=== PATIENT | female | born 1980 | race Two or more races ===

== ENCOUNTER 2020-11-26 14:05 | Inpatient (IN) | payer OTHER ==
[~2020-11-26] VITALS: Ht 160 cm; Wt 80.9 kg
[2020-11-26] MEDS ORDERED: PIPERACILLIN-TAZOB 3.375GM 100 ML IV ONE (15:15)
[2020-11-26] MEDS ORDERED: VANCOMYCIN 1GM/250ML 250 ML IV ONE (15:15)
[2020-11-26] MEDS ORDERED: MORPHINE SULFATE INJECTION 2 MG/ML SYRG IV ONE (15:15)
[2020-11-26] MEDS ORDERED: SODIUM CHLORIDE 0.9% 1,000 ML IV ONE (15:15)
[2020-11-26] MEDS ORDERED: ONDANSETRON HCL 4 MG/2 ML VIAL IV ONE (15:15)
[2020-11-26 15:39] LABS: Basophils # (auto) 0.1 10 ^3/uL (0-0.2); Basophils % (auto) 0.4 % (0.0-2.0); Eosinophils # (auto) 0 10 ^3/uL (0-0.8); Eosinophils % (auto) 0.2 % (0.0-7.0); Hematocrit 28.4 % (36.0-46.0); Hemoglobin 9.2 g/dL (12.2-16.2); Lymphocytes # (auto) 1.4 10 ^3/uL (0.4-5.4); Lymphocytes % (auto) 8.8 % (10.0-50.0); Mean Corpuscular Hemoglobin 30.3 pg (28.0-32.0); Mean Corpuscular Hgb Conc. 32.5 g/dL (32.0-36.0); Monocytes # (auto) 1.6 10 ^3/uL (0-1.3); Monocytes % (auto) 9.7 % (0.0-12.0); Neutrophils # (auto) 13.1 10 ^3/uL (1.6-8.6); Neutrophils % (auto) 80.9 % (37.0-80.0); Red Blood Cells 3.06 10^6/uL (4.0-5.20); Red Cell Distribution Width 14.2 % (11.8-14.3); White Blood Cell 16.2 10^3/uL (4.4-10.8)
[2020-11-26 15:57] LABS: Albumin 3.1 g/dL (3.4-5.0); BUN/Creatinine Ratio 12.5; Calcium 8.5 mg/dL (8.5-10.1); Potassium 5.5 mmol/L (3.5-5.1)
[2020-11-26 16:00] LABS: Bilirubin, Total 0.6 mg/dL (0.2-1.0); Lactic Acid w/Reflex 2.2 mmol/L (0.4-2.0); Total Protein 8.1 g/dL (6.4-8.2)
[2020-11-26 16:27] LABS: Urine Bacteria FEW /hpf (None Seen); Urine Blood Negative /uL (Negative); Urine Specific Gravity 1.009 (1.001-1.035); Urine WBC 3 /hpf (0 - 5)
[2020-11-26 16:43] LABS: Amphetamine Screen, Urine POSITIVE (NEGATIVE); Barbiturate Scree,Urine NEGATIVE (NEGATIVE); Benzodiazephine Screen, Urine NEGATIVE (NEGATIVE); Cannabinoid Screen, Urine NEGATIVE (NEGATIVE); Cocaine Screen, Urine NEGATIVE (NEGATIVE); Opiate Scree,Urine NEGATIVE (NEGATIVE); Phencyclidine Screen, Urine NEGATIVE (NEGATIVE)
[2020-11-26 16:49] LABS: Alcohol, Urine < 3.0 mg/dL (0-10)
[2020-11-26] MEDS ORDERED: ACETAMINOPHEN 500 MG TAB PO PRN (18:15)
[2020-11-26] MEDS ORDERED: SODIUM ZIRCONIUM CYCL 10 GM PAK PO ONE (18:15)
[2020-11-26] MEDS ORDERED: ALPRAZolam 0.25 MG TAB PO PRN (18:15)
[2020-11-26] MEDS ORDERED: ALBUTEROL SULF 2.5 MG/0.5ML(0.5%) NEB SOLN NEB ONE (18:15)
[2020-11-26] MEDS ORDERED: MORPHINE SULFATE INJECTION 2 MG/ML SYRG IV PRN (18:15)
[2020-11-26] MEDS ORDERED: InsuLIN REG 1unit/0.01ml Soln (100units/ml) IV ONE (18:15)
[2020-11-26] MEDS ORDERED: NITROGLYCERIN 0.4 MG SL TAB SL PRN (18:15)
[2020-11-26] MEDS ORDERED: DEXTROSE (50%) 50ML SYRG IV ONE (18:15)
[2020-11-26] MEDS ORDERED: ALBUTEROL SULF 2.5 MG/0.5ML(0.5%) NEB SOLN ONE (18:49)
[2020-11-26] MEDS: cefTRIAXone 1GM/50ML D5W 50 ML IV SCH ×2 (18:54→20:39)
[2020-11-26] MEDS: MORPHINE SULFATE INJECTION 2 MG/ML SYRG IV PRN (20:09)
[2020-11-26] MEDS: SODIUM BICARBONATE 50ML VIAL 50 ML in SOD CHL 0.45% 1,000 ML IV SCH (21:00)
[2020-11-26] MEDS: CLINDAMYCIN 300MG IV 50 ML IV SCH (22:17)
[2020-11-26] MEDS: HYDROcodone-ACET 5/325MG TAB PO PRN (22:33)
[2020-11-26] MEDS: diphenhdrAMINE HCL 50 MG/1 ML VL IV PRN (23:33)
[2020-11-26] MEDS: ONDANSETRON HCL 4 MG/2 ML VIAL IV PRN (23:56)
[2020-11-27] VITALS (14 sets, daily range): BP systolic 89–121; BP diastolic 38–86
[2020-11-27] MEDS: SODIUM BICARBONATE 50ML VIAL 50 ML in SOD CHL 0.45% 1,000 ML IV SCH ×3 (03:05→20:00)
[2020-11-27 05:16] LABS: Eosinophils # (auto) 0 10 ^3/uL (0-0.8); Eosinophils % (auto) 0.3 % (0.0-7.0); Lymphocytes # (auto) 1.7 10 ^3/uL (0.4-5.4); Monocytes # (auto) 1.2 10 ^3/uL (0-1.3); Red Cell Distribution Width 13.9 % (11.8-14.3)
[2020-11-27 05:19] LABS: Basophils # (auto) 0.1 10 ^3/uL (0-0.2); Basophils % (auto) 0.5 % (0.0-2.0); Hematocrit 20.9 % (36.0-46.0); Lymphocytes % (auto) 12.7 % (10.0-50.0); Mean Corpuscular Hemoglobin 30.3 pg (28.0-32.0); Mean Corpuscular Hgb Conc. 32.8 g/dL (32.0-36.0); Mean Corpuscular Volume 92.4 fL (80.0-100.0); Neutrophils # (auto) 10.2 10 ^3/uL (1.6-8.6); Neutrophils % (auto) 77.5 % (37.0-80.0); Red Blood Cells 2.26 10^6/uL (4.0-5.20); White Blood Cell 13.1 10^3/uL (4.4-10.8)
[2020-11-27 05:24] LABS: Hemoglobin 6.9 g/dL (12.2-16.2)
[2020-11-27 05:38] LABS: INR 1.29 (0.9-1.15); Partial Thromboplastin Time 51.3 sec (23.6-33.0)
[2020-11-27 05:59] LABS: Potassium 3.9 mmol/L (3.5-5.1)
[2020-11-27 06:15] LABS: Albumin 2.3 g/dL (3.4-5.0); Bilirubin, Total 0.3 mg/dL (0.2-1.0); Calcium 7.3 mg/dL (8.5-10.1); Total Protein 6.2 g/dL (6.4-8.2)
[2020-11-27] MEDS: CLINDAMYCIN 300MG IV 50 ML IV SCH ×3 (06:39→22:16)
[2020-11-27] MEDS: cefTRIAXone 1GM/50ML D5W 50 ML IV SCH (09:47)
[2020-11-27] MEDS: HYDROcodone-ACET 5/325MG TAB PO PRN ×2 (09:48→19:52)
[2020-11-27] MEDS: ONDANSETRON HCL 4 MG/2 ML VIAL IV PRN (11:50)
[2020-11-28 05:00] VITALS: BP 110/65
[2020-11-28] MEDS: CLINDAMYCIN 300MG IV 50 ML IV SCH ×3 (05:41→22:04)
[2020-11-28] MEDS: SODIUM BICARBONATE 50ML VIAL 50 ML in SOD CHL 0.45% 1,000 ML IV SCH ×3 (05:42→20:39)
[2020-11-28] MEDS: HYDROcodone-ACET 5/325MG TAB PO PRN (05:56)
[2020-11-28 09:00] VITALS: BP 107/78
[2020-11-28] MEDS: cefTRIAXone 1GM/50ML D5W 50 ML IV SCH (09:10)
[2020-11-28 10:46] LABS: BUN/Creatinine Ratio 14.2; Calcium 7.7 mg/dL (8.5-10.1)
[2020-11-28] MEDS: InsuLIN REG 1unit/0.01ml Soln (100units/ml) SC SCH ×3 (11:30→22:00)
[2020-11-28] MEDS ORDERED: DEXTROSE (50%) 50ML SYRG IV PRN (11:30)
[2020-11-28] MEDS: ONDANSETRON HCL 4 MG/2 ML VIAL IV PRN (11:52)
[2020-11-28] MEDS: ACCU-CHEK COMFORT CURVE STRIP VI SCH ×3 (12:27→22:15)
[2020-11-28 13:00] VITALS: BP 147/94
[2020-11-28 17:24] VITALS: BP 146/82
[2020-11-28 22:00] VITALS: BP 90/25
[2020-11-29 05:00] VITALS: BP 120/83
[2020-11-29 06:09] LABS: Basophils # (auto) 0 10 ^3/uL (0-0.2); Basophils % (auto) 0.5 % (0.0-2.0); Eosinophils # (auto) 0.1 10 ^3/uL (0-0.8); Hematocrit 29.1 % (36.0-46.0); Hemoglobin 10.1 g/dL (12.2-16.2); Lymphocytes % (auto) 33.3 % (10.0-50.0); Mean Corpuscular Hemoglobin 31.3 pg (28.0-32.0); Mean Corpuscular Hgb Conc. 34.5 g/dL (32.0-36.0); Mean Corpuscular Volume 90.7 fL (80.0-100.0); Monocytes # (auto) 0.4 10 ^3/uL (0-1.3); Monocytes % (auto) 6.8 % (0.0-12.0); Neutrophils # (auto) 3.5 10 ^3/uL (1.6-8.6); Neutrophils % (auto) 57.4 % (37.0-80.0); Red Blood Cells 3.21 10^6/uL (4.0-5.20); Red Cell Distribution Width 13.8 % (11.8-14.3); White Blood Cell 6.1 10^3/uL (4.4-10.8)
[2020-11-29 06:27] LABS: BUN/Creatinine Ratio 14.2; Calcium 7.2 mg/dL (8.5-10.1); Phosphorus 3.6 mg/dL (2.5-4.90); Potassium 3.9 mmol/L (3.5-5.1)
[2020-11-29] MEDS: SODIUM BICARBONATE 50ML VIAL 50 ML in SOD CHL 0.45% 1,000 ML IV SCH ×2 (06:28→13:06)
[2020-11-29] MEDS: CLINDAMYCIN 300MG IV 50 ML IV SCH ×3 (06:28→22:46)
[2020-11-29 06:41] LABS: % Iron Saturation 51.7 % (15-50)
[2020-11-29] MEDS: InsuLIN REG 1unit/0.01ml Soln (100units/ml) SC SCH ×4 (06:48→22:00)
[2020-11-29] MEDS: ACCU-CHEK COMFORT CURVE STRIP VI SCH ×4 (06:49→22:46)
[2020-11-29 09:00] VITALS: BP 128/80
[2020-11-29] MEDS: cefTRIAXone 1GM/50ML D5W 50 ML IV SCH (09:21)
[2020-11-29] MEDS: ONDANSETRON HCL 4 MG/2 ML VIAL IV PRN (09:48)
[2020-11-29] MEDS: MORPHINE SULFATE INJECTION 2 MG/ML SYRG IV PRN (09:49)
[2020-11-29 11:37] LABS: Cholesterol 148 mg/dL (< 200); HDL Cholesterol 32 mg/dL (40-59); LDL Cholesterol 92 mg/dL (< 100); Triglycerides 132 mg/dL (< 150)
[2020-11-29 13:00] VITALS: BP 151/97
[2020-11-29 17:00] VITALS: BP 141/91
[2020-11-29 22:00] VITALS: BP 158/86
[2020-11-29] MEDS: ACETYLCYSTEINE ORAL for CIN 20%(200MG/ML) 4ML PO SCH (22:45)
[2020-11-29] MEDS: ATORVASTATIN 20 MG TAB PO SCH (22:46)
[2020-11-30 05:00] VITALS: BP 130/87
[2020-11-30 05:56] LABS: Basophils # (auto) 0.1 10 ^3/uL (0-0.2); Basophils % (auto) 0.8 % (0.0-2.0); Eosinophils # (auto) 0.1 10 ^3/uL (0-0.8); Eosinophils % (auto) 1.6 % (0.0-7.0); Hematocrit 29.4 % (36.0-46.0); Hemoglobin 9.9 g/dL (12.2-16.2); Lymphocytes # (auto) 2.5 10 ^3/uL (0.4-5.4); Lymphocytes % (auto) 33.8 % (10.0-50.0); Mean Corpuscular Hemoglobin 30.9 pg (28.0-32.0); Mean Corpuscular Hgb Conc. 33.8 g/dL (32.0-36.0); Mean Corpuscular Volume 91.5 fL (80.0-100.0); Monocytes # (auto) 0.4 10 ^3/uL (0-1.3); Neutrophils # (auto) 4.3 10 ^3/uL (1.6-8.6); Neutrophils % (auto) 57.8 % (37.0-80.0); Nucleated Red Blood Cells % 0.1 %; Red Blood Cells 3.22 10^6/uL (4.0-5.20); Red Cell Distribution Width 13.8 % (11.8-14.3); White Blood Cell 7.4 10^3/uL (4.4-10.8)
[2020-11-30] MEDS: CLINDAMYCIN 300MG IV 50 ML IV SCH ×3 (06:01→22:08)
[2020-11-30 06:04] LABS: INR 1.05 (0.9-1.15)
[2020-11-30 06:17] LABS: Calcium 7.8 mg/dL (8.5-10.1); Potassium 4.1 mmol/L (3.5-5.1)
[2020-11-30] MEDS: ACCU-CHEK COMFORT CURVE STRIP VI SCH ×4 (06:37→23:42)
[2020-11-30] MEDS: InsuLIN REG 1unit/0.01ml Soln (100units/ml) SC SCH ×4 (06:38→22:00)
[2020-11-30 09:00] VITALS: BP 132/96
[2020-11-30] MEDS: ACETYLCYSTEINE ORAL for CIN 20%(200MG/ML) 4ML PO SCH ×2 (10:00→22:08)
[2020-11-30] MEDS: cefTRIAXone 1GM/50ML D5W 50 ML IV SCH (10:10)
[2020-11-30] MEDS: SODIUM BICARBONATE 50ML VIAL 50 ML in SOD CHL 0.45% 1,000 ML IV SCH (10:14)
[2020-11-30] MEDS ORDERED: LORazepam 2MG/ML-1ML VIAL IV ONE (11:30)
[2020-11-30 13:00] VITALS: BP 135/92
[2020-11-30] MEDS ORDERED: IODIXANOL 320MG/ML 100ML BTL IV ONE (14:57)
[2020-11-30] MEDS ORDERED: LIDOCAINE 2%HCL (LOCAL ANESTH.) INJ 20ML MDV ONE (14:57)
[2020-11-30] MEDS ORDERED: ANGIOMAX 250 MG VIAL IV ONE (15:15)
[2020-11-30] MEDS ORDERED: fentaNYL CITRATE 100 MCG/2 ML VL ONE (15:16)
[2020-11-30] MEDS ORDERED: MIDAZOLAM HCL 2MG/2ML 2ml VIAL (1mg/ml) ONE (15:16)
[2020-11-30] MEDS ORDERED: SODIUM CHL 0.9% 0 ML ONE (15:16)
[2020-11-30] MEDS: MORPHINE SULFATE INJECTION 2 MG/ML SYRG IV PRN (20:16)
[2020-11-30 21:30] VITALS: BP 125/88
[2020-11-30] MEDS: ATORVASTATIN 20 MG TAB PO SCH (22:08)
[2020-11-30] MEDS: SODIUM CHLOR 0.9% PF (SALINE LOCK) 10ML VIAL/SYR IV SCH (22:10)
[2020-12-01 05:00] VITALS: BP 114/84
[2020-12-01 05:30] LABS: Basophils # (auto) 0.1 10 ^3/uL (0-0.2); Basophils % (auto) 0.8 % (0.0-2.0); Eosinophils # (auto) 0.1 10 ^3/uL (0-0.8); Eosinophils % (auto) 1.9 % (0.0-7.0); Hematocrit 30.7 % (36.0-46.0); Hemoglobin 10.1 g/dL (12.2-16.2); Lymphocytes # (auto) 2.7 10 ^3/uL (0.4-5.4); Lymphocytes % (auto) 39.3 % (10.0-50.0); Mean Corpuscular Hemoglobin 30.4 pg (28.0-32.0); Mean Corpuscular Hgb Conc. 32.9 g/dL (32.0-36.0); Mean Corpuscular Volume 92.3 fL (80.0-100.0); Monocytes # (auto) 0.5 10 ^3/uL (0-1.3); Monocytes % (auto) 7.8 % (0.0-12.0); Neutrophils # (auto) 3.4 10 ^3/uL (1.6-8.6); Neutrophils % (auto) 50.2 % (37.0-80.0); Red Blood Cells 3.33 10^6/uL (4.0-5.20); Red Cell Distribution Width 13.6 % (11.8-14.3); White Blood Cell 6.8 10^3/uL (4.4-10.8)
[2020-12-01] MEDS: CLINDAMYCIN 300MG IV 50 ML IV SCH ×3 (05:40→22:01)
[2020-12-01] MEDS: SODIUM CHLOR 0.9% PF (SALINE LOCK) 10ML VIAL/SYR IV SCH ×3 (05:41→22:01)
[2020-12-01 05:55] LABS: Calcium 7.8 mg/dL (8.5-10.1); Potassium 4.3 mmol/L (3.5-5.1)
[2020-12-01 05:58] LABS: BUN/Creatinine Ratio 12.8
[2020-12-01] MEDS: ACCU-CHEK COMFORT CURVE STRIP VI SCH ×4 (06:34→22:09)
[2020-12-01] MEDS: InsuLIN REG 1unit/0.01ml Soln (100units/ml) SC SCH ×4 (06:35→22:00)
[2020-12-01 08:00] VITALS: BP 110/79
[2020-12-01] MEDS: cefTRIAXone 1GM/50ML D5W 50 ML IV SCH (09:06)
[2020-12-01] MEDS: ACETYLCYSTEINE ORAL for CIN 20%(200MG/ML) 4ML PO SCH (09:47)
[2020-12-01] MEDS: LACTATED RINGER'S 1,000 ML IV SCH ×2 (09:48→22:01)
[2020-12-01] MEDS ORDERED: ROPIVACAINE 0.5% (5MG/ML) 20ML AMPULE IJ ONE (10:40)
[2020-12-01] MEDS ORDERED: ceFAZolin 1GM VL ONE (10:41)
[2020-12-01] MEDS ORDERED: ceFAZolin 1GM/50ML 100 ML IV ONE (10:56)
[2020-12-01] MEDS ORDERED: ONDANSETRON HCL 4 MG/2 ML VIAL ONE (10:58)
[2020-12-01] MEDS ORDERED: PROPOFOL 10 MG/ML 20 ML IV ONE (10:58)
[2020-12-01] MEDS ORDERED: LIDOCAINE 2% (LOCAL ANESTH.) PF 5ml SDV ONE (10:58)
[2020-12-01] MEDS ORDERED: MIDAZOLAM HCL 2MG/2ML 2ml VIAL (1mg/ml) ONE (10:58)
[2020-12-01] MEDS ORDERED: GLYCOPYRROLATE 0.2 MG/ML 1ML VIAL ONE (10:58)
[2020-12-01] MEDS ORDERED: KETAMINE HCL 10 ML ONE (10:58)
[2020-12-01] MEDS ORDERED: HYDROmorphone HCL 2 MG/ML VL IV PRN (12:00)
[2020-12-01] MEDS ORDERED: ACCU-CHEK COMFORT CURVE STRIP VI ONE (12:00)
[2020-12-01] MEDS ORDERED: ONDANSETRON HCL 4 MG/2 ML VIAL IV PRN ×2 (12:00→15:00)
[2020-12-01] MEDS ORDERED: LABETALOL HCL 5 MG/ML 4ML SYRINGE IV PRN ×2 (15:00)
[2020-12-01 16:00] VITALS: BP 125/87
[2020-12-01] MEDS ORDERED: FERR-20 PO (18:38)
[2020-12-01] MEDS ORDERED: HYDR-4296 PO (18:38)
[2020-12-01 22:00] VITALS: BP 143/95
[2020-12-01] MEDS: ATORVASTATIN 20 MG TAB PO SCH (22:02)
[2020-12-02 04:58] VITALS: BP 127/82
[2020-12-02] MEDS: CLINDAMYCIN 300MG IV 50 ML IV SCH ×3 (06:03→22:05)
[2020-12-02] MEDS: SODIUM CHLOR 0.9% PF (SALINE LOCK) 10ML VIAL/SYR IV SCH ×3 (06:03→22:05)
[2020-12-02] MEDS: InsuLIN REG 1unit/0.01ml Soln (100units/ml) SC SCH ×4 (06:22→22:00)
[2020-12-02] MEDS: ACCU-CHEK COMFORT CURVE STRIP VI SCH ×4 (06:22→22:08)
[2020-12-02 06:30] LABS: BUN/Creatinine Ratio 12.4; Calcium 7.9 mg/dL (8.5-10.1); Potassium 4.3 mmol/L (3.5-5.1)
[2020-12-02 08:57] VITALS: BP 142/96
[2020-12-02] MEDS: cefTRIAXone 1GM/50ML D5W 50 ML IV SCH (09:08)
[2020-12-02] MEDS: LACTATED RINGER'S 1,000 ML IV SCH ×2 (11:47→23:49)
[2020-12-02 13:00] VITALS: BP 165/90
[2020-12-02] MEDS: MORPHINE SULFATE INJECTION 2 MG/ML SYRG IV PRN (14:18)
[2020-12-02 16:47] VITALS: BP 130/86
[2020-12-02 22:00] VITALS: BP 117/74
[2020-12-02] MEDS: ATORVASTATIN 20 MG TAB PO SCH (22:07)
[2020-12-03] VITALS (7 sets, daily range): BP systolic 101–158; BP diastolic 60–91
[2020-12-03] MEDS: InsuLIN REG 1unit/0.01ml Soln (100units/ml) SC SCH ×4 (06:06→22:00)
[2020-12-03] MEDS: SODIUM CHLOR 0.9% PF (SALINE LOCK) 10ML VIAL/SYR IV SCH ×2 (06:06→14:00)
[2020-12-03] MEDS: CLINDAMYCIN 300MG IV 50 ML IV SCH (06:06)
[2020-12-03] MEDS: ACCU-CHEK COMFORT CURVE STRIP VI SCH ×3 (06:56→17:00)
[2020-12-03] MEDS ORDERED: LIDOCAINE 1% (LOCAL ANESTH.) PF 5ml SDV ID ONE (10:30)
[2020-12-03] MEDS: HYDROcodone-ACET 5/325MG TAB PO PRN (12:27)
[2020-12-03] MEDS ORDERED: amLODIPine BESYLATE 5 MG TAB PO ONE (12:45)
[2020-12-03] MEDS: ceFAZolin 1GM/50ML 50 ML IV SCH ×2 (14:47)
[2020-12-04] MEDS: diphenhdrAMINE HCL 50 MG/1 ML VL IV PRN ×3 (00:40→18:38)
[2020-12-04] MEDS: SODIUM CHLOR 0.9% PF (SALINE LOCK) 10ML VIAL/SYR IV SCH ×7 (00:42→21:14)
[2020-12-04] MEDS: ATORVASTATIN 20 MG TAB PO SCH ×2 (00:43→21:14)
[2020-12-04] MEDS: ACCU-CHEK COMFORT CURVE STRIP VI SCH ×5 (00:43→21:14)
[2020-12-04] MEDS: HYDROcodone-ACET 5/325MG TAB PO PRN (01:00)
[2020-12-04 05:00] VITALS: BP 113/75
[2020-12-04] MEDS: ceFAZolin 1GM/50ML 50 ML IV SCH ×3 (06:28→21:14)
[2020-12-04] MEDS: InsuLIN REG 1unit/0.01ml Soln (100units/ml) SC SCH ×4 (06:29→21:28)
[2020-12-04 08:00] VITALS: BP 126/88
[2020-12-04 09:00] VITALS: BP 126/88
[2020-12-04] MEDS: amLODIPine BESYLATE 5 MG TAB PO SCH (10:11)
[2020-12-04] MEDS: MORPHINE SULFATE INJECTION 2 MG/ML SYRG IV PRN ×2 (10:21→21:53)
[2020-12-04] MEDS ORDERED: NYSTATIN TOPICAL POWDER 15GM TOP ONE (10:30)
[2020-12-04 13:00] VITALS: BP 133/90
[2020-12-04 17:00] VITALS: BP 144/87
[2020-12-04] MEDS: NYSTATIN TOPICAL POWDER 15GM TOP SCH (21:14)
[2020-12-04 22:00] VITALS: BP 115/77
[2020-12-05 05:00] VITALS: BP 115/80
[2020-12-05] MEDS: ceFAZolin 1GM/50ML 50 ML IV SCH (05:18)
[2020-12-05] MEDS: SODIUM CHLOR 0.9% PF (SALINE LOCK) 10ML VIAL/SYR IV SCH ×3 (05:19→14:52)
[2020-12-05 06:03] LABS: Hematocrit 27.9 % (36.0-46.0); Hemoglobin 9.4 g/dL (12.2-16.2)
[2020-12-05 06:07] LABS: BUN/Creatinine Ratio 13.5; Calcium 7.8 mg/dL (8.5-10.1); Potassium 4.1 mmol/L (3.5-5.1)
[2020-12-05] MEDS: ACCU-CHEK COMFORT CURVE STRIP VI SCH ×2 (06:56→13:43)
[2020-12-05] MEDS: InsuLIN REG 1unit/0.01ml Soln (100units/ml) SC SCH ×2 (06:56→13:39)
[2020-12-05 08:30] VITALS: BP 109/77
[2020-12-05] MEDS: NYSTATIN TOPICAL POWDER 15GM TOP SCH (09:19)
[2020-12-05] MEDS: amLODIPine BESYLATE 5 MG TAB PO SCH (09:22)
[2020-12-05] MEDS ORDERED: AMLO-496 PO (09:43)
[2020-12-05] MEDS ORDERED: NYS15PW TOP (09:43)
[2020-12-05 12:30] VITALS: BP 141/94
[2020-12-05 14:27] VITALS: BP 127/88
[2020-12-06] MEDS ORDERED: CEFTRIAXONE SODIUM 2 GM in D5W 5% 50 ML IV SCH (10:00)
== END 2020-12-05 17:05 | disposition left against medical advice (07) | DRG 710 ==
LOC: EDBD 14:05 → ER 14:05 → EEVIPCON 14:05 → TELE 18:09 → EEVIPCON 18:09 → TELE-WESTW 23:50 → WEST WING 12-03 09:32
PROVIDERS: ADMIT Nurse Practitioner Acute Care; ATTEND Internal Medicine
PROC: 30233N1 Transfusion of Nonautologous Red Blood Cells into Peripheral Vein, Percutaneous Approach (ICD-10-PCS; 2020-11-27)
PROC: B41FYZZ Fluoroscopy of Right Lower Extremity Arteries using Other Contrast (ICD-10-PCS; 2020-11-30)
PROC: B41GYZZ Fluoroscopy of Left Lower Extremity Arteries using Other Contrast (ICD-10-PCS; 2020-11-30)
PROC: 0Q9L0ZZ Drainage of Right Tarsal, Open Approach (ICD-10-PCS; 2020-12-01)
PROC: 0QBL0ZZ Excision of Right Tarsal, Open Approach (ICD-10-PCS; principal; 2020-12-01 11:05)
PROC: 02HV33Z Insertion of Infusion Device into Superior Vena Cava, Percutaneous Approach (ICD-10-PCS; 2020-12-03)
PROC: B548ZZA Ultrasonography of Superior Vena Cava, Guidance (ICD-10-PCS; 2020-12-03)
DX: A41.9 Sepsis, unspecified organism (principal); N17.0 Acute kidney failure with tubular necrosis; M00.9 Pyogenic arthritis, unspecified; E44.0 Moderate protein-calorie malnutrition; M86.171 Other acute osteomyelitis, right ankle and foot; L02.415 Cutaneous abscess of right lower limb; D50.0 Iron deficiency anemia secondary to blood loss (chronic); E11.22 Type 2 diabetes mellitus with diabetic chronic kidney disease; L97.519 Non-pressure chronic ulcer of other part of right foot with unspecified severity; E11.621 Type 2 diabetes mellitus with foot ulcer; N18.4 Chronic kidney disease, stage 4 (severe); E87.5 Hyperkalemia; I12.9 Hypertensive chronic kidney disease with stage 1 through stage 4 chronic kidney disease, or unspecified chronic kidney disease; F15.10 Other stimulant abuse, uncomplicated; Z20.822 Contact with and (suspected) exposure to COVID-19; E11.622 Type 2 diabetes mellitus with other skin ulcer; E11.69 Type 2 diabetes mellitus with other specified complication; F41.9 Anxiety disorder, unspecified; L03.115 Cellulitis of right lower limb; L97.319 Non-pressure chronic ulcer of right ankle with unspecified severity; R65.20 Severe sepsis without septic shock; M19.079 Primary osteoarthritis, unspecified ankle and foot; M20.40 Other hammer toe(s) (acquired), unspecified foot; Z53.29 Procedure and treatment not carried out because of patient's decision for other reasons; Z91.19 Patient's noncompliance with other medical treatment and regimen; Z68.29 Body mass index [BMI] 29.0-29.9, adult
CPT/HCPCS: 36415; 36569; 71045; 73700; 73721; 75716; 76775; 80048; 80053; 80061; 80307; 81001; 82728; 82962; 83036; 83540; 83550; 83605; 84100; 84702; 85014; 85018; 85025; 85610; 85730; 86850; 86900; 86901; 86920; 87040; 87070; 87075; 87077; 87205; 87426; 93005; 93306; 93925; 94640; 96365; 96375; 99152; G0378; J0690; J0696; J1815; J2001; J2250; J2405; J2543; J2704; J3490; Q9967

== ENCOUNTER 2022-11-09 19:09 | Inpatient (IN) | payer OTHER ==
[~2022-11-09] VITALS: Ht 167.6 cm; Wt 68.8 kg
[~2022-11-09 19:09] MED LIST: AMLO1TAB23 PO; FERR325T24 PO; HYDR-4296 PO; NYS15PW TOP
[2022-11-09] MEDS ORDERED: VANCOMYCIN PER PHARMACY 0 MG IV SCH (19:45)
[2022-11-09] MEDS ORDERED: PIPERACILLIN-TAZOB 3.375GM 100 ML IV ONE (19:45)
[2022-11-09] MEDS ORDERED: HYDROmorphone HCL 2 MG/ML VL/or syr IM ONE (19:45)
[2022-11-09] MEDS ORDERED: VANCOMYCIN 1GM/250ML 250 ML IV ONE (20:00)
[2022-11-09 20:17] LABS: Basophils # (auto) 0.1 10 ^3/uL (0-0.2); Eosinophils % (auto) 0.3 % (0.0-7.0); Hemoglobin 9.7 g/dL (12.2-16.2); Monocytes # (auto) 1.1 10 ^3/uL (0-1.3); Red Cell Distribution Width 13.2 % (11.8-14.3)
[2022-11-09 20:18] LABS: Basophils % (auto) 0.7 % (0.0-2.0); Eosinophils # (auto) 0 10 ^3/uL (0-0.8); Hematocrit 30.6 % (36.0-46.0); Lymphocytes # (auto) 1.4 10 ^3/uL (0.4-5.4); Lymphocytes % (auto) 7.5 % (10.0-50.0); Mean Corpuscular Hemoglobin 27.8 pg (28.0-32.0); Mean Corpuscular Hgb Conc. 31.8 g/dL (32.0-36.0); Mean Corpuscular Volume 87.5 fL (80.0-100.0); Monocytes % (auto) 6.1 % (0.0-12.0); Neutrophils # (auto) 15.7 10 ^3/uL (1.6-8.6); Neutrophils % (auto) 85.4 % (37.0-80.0); Red Blood Cells 3.49 10^6/uL (4.0-5.20); White Blood Cell 18.3 10^3/uL (4.4-10.8)
[2022-11-09 20:28] LABS: Urine Bacteria NONE SEEN /hpf (None Seen); Urine Blood 2+ /uL (Negative); Urine Clarity HAZY (Clear); Urine Color Yellow (Yellow); Urine Mucus FEW (None Seen); Urine Protein, UAD 3+ (Negative); Urine Specific Gravity 1.018 (1.001-1.035); Urine Urobilinogen Normal (Negative); Urine WBC 85 /hpf (0 - 5)
[2022-11-09 20:35] LABS: Alkaline Phosphatase 144 U/L (46-116); Anion Gap 10 (5-15); Aspartate Aminotransferase < 8 U/L (13-40); BUN/Creatinine Ratio 10.9 (10.0-20.0); Blood Urea Nitrogen 29 mg/dL (9-23); Carbon Dioxide 19 mmol/L (20-30); Chloride 98 mmol/L (98-107); Glucose 306 mg/dL (74-106); Lipase 41 U/L (12-53); Potassium 4.3 mmol/L (3.5-5.1); Sodium 127 mmol/L (136-145)
[2022-11-09 20:36] LABS: Bilirubin, Total 0.3 mg/dL (0.2-1.0); Total Protein 8.7 g/dL (5.7-8.2)
[2022-11-09 20:41] LABS: Alanine Aminotransferase < 9 U/L (7-40)
[2022-11-09 21:12] LABS: CRP High Sensitivity 14.41 mg/dL (<1.0)
[2022-11-09] MEDS ORDERED: diphenhdrAMINE HCL 25 MG CAP PO ONE (23:30)
[2022-11-10] VITALS (7 sets, daily range): BP systolic 90–150; BP diastolic 59–101; PULSE 87–106; RESP 11–19; TEMP 98.6–100; O2SAT 97–99
[2022-11-10] MEDS ORDERED: INSULIN LISPRO (HUMAN) 100 UNITS/ML ML SC ONE (01:45)
[2022-11-10] MEDS ORDERED: SODIUM CHLORIDE 0.9% 1,000 ML IV ONE (01:45)
[2022-11-10] MEDS ORDERED: DOCUSATE SOD 100 MG CAP PO PRN (06:30)
[2022-11-10] MEDS ORDERED: ACETAMINOPHEN 325 MG TAB PO PRN (06:30)
[2022-11-10] MEDS ORDERED: DEXTROSE (50%) 50ML SYRG IV PRN (06:30)
[2022-11-10] MEDS: HYDROmorphone HCL 2 MG/ML VL/or syr IV PRN ×3 (07:07→22:40)
[2022-11-10] MEDS: ONDANSETRON HCL 4 MG/2 ML VIAL IV PRN ×3 (07:08→22:40)
[2022-11-10 07:15] LABS: Basophils # (auto) 0.1 10 ^3/uL (0-0.2); Basophils % (auto) 0.4 % (0.0-2.0); Eosinophils # (auto) 0 10 ^3/uL (0-0.8); Eosinophils % (auto) 0.1 % (0.0-7.0); Hematocrit 27.2 % (36.0-46.0); Hemoglobin 8.9 g/dL (12.2-16.2); Lymphocytes % (auto) 4.6 % (10.0-50.0); Mean Corpuscular Hemoglobin 28.5 pg (28.0-32.0); Mean Corpuscular Hgb Conc. 32.6 g/dL (32.0-36.0); Mean Corpuscular Volume 87.3 fL (80.0-100.0); Monocytes # (auto) 1.6 10 ^3/uL (0-1.3); Monocytes % (auto) 6.9 % (0.0-12.0); Neutrophils # (auto) 19.9 10 ^3/uL (1.6-8.6); Red Blood Cells 3.12 10^6/uL (4.0-5.20); Red Cell Distribution Width 13.1 % (11.8-14.3); White Blood Cell 22.6 10^3/uL (4.4-10.8)
[2022-11-10] MEDS: SODIUM CHLORIDE 0.9% 1,000 ML IV SCH (07:55)
[2022-11-10 08:36] LABS: Albumin 3.5 g/dL (3.2-4.8); Alkaline Phosphatase 117 U/L (46-116); Anion Gap 9 (5-15); Aspartate Aminotransferase < 8 U/L (13-40); BUN/Creatinine Ratio 11.8 (10.0-20.0); Bilirubin, Total 0.3 mg/dL (0.2-1.0); Blood Urea Nitrogen 37 mg/dL (9-23); Calcium 8.7 mg/dL (8.5-10.1); Carbon Dioxide 21 mmol/L (20-30); Chloride 100 mmol/L (98-107); Glucose 123 mg/dL (74-106); Potassium 4.1 mmol/L (3.5-5.1); Sodium 130 mmol/L (136-145); Total Protein 7.3 g/dL (5.7-8.2)
[2022-11-10 08:49] LABS: Alanine Aminotransferase < 9 U/L (7-40)
[2022-11-10 08:52] LABS: Creatinine, Urine 181.43 mg/dL (30.0-125.0)
[2022-11-10 08:55] LABS: Protein, Urine 516.3 mg/dL (0.0-11.9); Urine Protein/Creatinine Ratio 2.85
[2022-11-10] MEDS: InsuLIN REG 1unit/0.01ml Soln (100units/ml) SC SCH ×5 (09:27→23:47)
[2022-11-10] MEDS: ACCU-CHEK COMFORT CURVE STRIP VI SCH ×5 (09:27→23:44)
[2022-11-10] MEDS: PIPERACILLIN-TAZOB 3.375GM 100 ML IV SCH ×2 (10:12→22:38)
[2022-11-10] MEDS: ENOXAPARIN SOD 30 MG/0.3 ML SYRINGE SC SCH (10:13)
[2022-11-10] MEDS: INSULIN LANTUS (GLARGINE) 1 /0.01ml (100units/ml) SC SCH (23:46)
[2022-11-11 01:25] LABS: Urine Amorphous Crystal FEW /hpf (None Seen); Urine Bacteria MANY /hpf (None Seen); Urine Blood TRACE /uL (Negative); Urine Clarity HAZY (Clear); Urine Color Yellow (Yellow); Urine Mucus FEW (None Seen); Urine Protein, UAD 2+ (Negative); Urine Specific Gravity 1.016 (1.001-1.035); Urine Urobilinogen Normal (Negative); Urine WBC 35 /hpf (0 - 5); Urine pH 5.5 (5.0-8.0)
[2022-11-11] MEDS: SODIUM CHLORIDE 0.9% 1,000 ML IV SCH ×3 (02:36→18:00)
[2022-11-11] MEDS: InsuLIN REG 1unit/0.01ml Soln (100units/ml) SC SCH ×6 (03:31→23:20)
[2022-11-11] MEDS: ACCU-CHEK COMFORT CURVE STRIP VI SCH ×6 (03:31→23:20)
[2022-11-11 05:00] VITALS: BP 108/64; PULSE 87; RESP 17; TEMP 98.6; O2SAT 100
[2022-11-11 05:50] LABS: Basophils # (auto) 0.1 10 ^3/uL (0-0.2); Hemoglobin 8.5 g/dL (12.2-16.2); Red Cell Distribution Width 13.5 % (11.8-14.3)
[2022-11-11 05:53] LABS: Basophils % (auto) 0.3 % (0.0-2.0); Eosinophils # (auto) 0 10 ^3/uL (0-0.8); Eosinophils % (auto) 0.2 % (0.0-7.0); Hematocrit 26.1 % (36.0-46.0); Lymphocytes # (auto) 1.2 10 ^3/uL (0.4-5.4); Lymphocytes % (auto) 6.7 % (10.0-50.0); Mean Corpuscular Hemoglobin 28.3 pg (28.0-32.0); Mean Corpuscular Hgb Conc. 32.6 g/dL (32.0-36.0); Mean Corpuscular Volume 86.9 fL (80.0-100.0); Monocytes # (auto) 1.5 10 ^3/uL (0-1.3); Monocytes % (auto) 7.9 % (0.0-12.0); Neutrophils # (auto) 15.7 10 ^3/uL (1.6-8.6); Neutrophils % (auto) 84.9 % (37.0-80.0); White Blood Cell 18.6 10^3/uL (4.4-10.8)
[2022-11-11 06:45] LABS: Albumin 3.5 g/dL (3.2-4.8); Alkaline Phosphatase 131 U/L (46-116); Anion Gap 9 (5-15); Aspartate Aminotransferase < 8 U/L (13-40); BUN/Creatinine Ratio 8.6 (10.0-20.0); Bilirubin, Total 0.4 mg/dL (0.2-1.0); Blood Urea Nitrogen 37 mg/dL (9-23); Calcium 8.7 mg/dL (8.7-10.4); Carbon Dioxide 21 mmol/L (20-30); Chloride 103 mmol/L (98-107); Glucose 95 mg/dL (74-106); Magnesium 1.5 mg/dL (1.6-2.6); Potassium 4.3 mmol/L (3.5-5.1); Sodium 133 mmol/L (136-145); Total Protein 7.8 g/dL (5.7-8.2)
[2022-11-11 06:57] LABS: Alanine Aminotransferase < 9 U/L (7-40)
[2022-11-11] MEDS: ONDANSETRON HCL 4 MG/2 ML VIAL IV PRN ×2 (07:32→19:58)
[2022-11-11 08:00] VITALS: PULSE 70; RESP 18; O2SAT 94
[2022-11-11 08:57] LABS: Amphetamine Screen, Urine Neg (NEGATIVE)
[2022-11-11 08:58] LABS: Barbiturate Scree,Urine Neg (NEGATIVE); Benzodiazephine Screen, Urine Neg (NEGATIVE); Cannabinoid Screen, Urine Neg (NEGATIVE); Cocaine Screen, Urine Neg (NEGATIVE); Opiate Scree,Urine Neg (NEGATIVE); Phencyclidine Screen, Urine Neg (NEGATIVE)
[2022-11-11 09:00] VITALS: BP 100/82; PULSE 70; RESP 18; TEMP 99.3; O2SAT 94
[2022-11-11] MEDS: HYDROmorphone HCL 2 MG/ML VL/or syr IV PRN ×3 (09:03→19:58)
[2022-11-11 09:49] LABS: % Iron Saturation 12.7 % (15-50)
[2022-11-11] MEDS: DAKINS QUARTER STR 0.125% (NaHypochlorite) 473 ML TOPICAL SOL TOP SCH (10:00)
[2022-11-11] MEDS: PIPERACILLIN-TAZOB 3.375GM 100 ML IV SCH ×2 (10:00→21:52)
[2022-11-11 10:09] LABS: Triglycerides 179 mg/dL (< 150)
[2022-11-11 10:10] LABS: LDL Cholesterol 94 mg/dL (< 100)
[2022-11-11 10:11] LABS: Cholesterol 184 mg/dL (< 200); HDL Cholesterol 28 mg/dL (40-59)
[2022-11-11 10:19] LABS: CRP High Sensitivity 15.47 mg/dL (<1.0)
[2022-11-11] MEDS ORDERED: MAGNESIUM SULFATE 1GM/100ML 100 ML IV SCH ×2 (11:00→13:10)
[2022-11-11] MEDS: ENOXAPARIN SOD 30 MG/0.3 ML SYRINGE SC SCH (11:01)
[2022-11-11] MEDS: INSULIN LANTUS (GLARGINE) 1 /0.01ml (100units/ml) SC SCH ×2 (11:11→22:00)
[2022-11-11] MEDS ORDERED: VANCOMYCIN 500 MG in D5W 5% 100 ML IV ONE (14:00)
[2022-11-11 14:06] LABS: Erythrocyte Sedimentation Rate 115 mm/hr (0-20)
[2022-11-11] MEDS: MAGNESIUM SULFATE 1GM/100ML 100 ML IV SCH ×2 (15:28→16:37)
[2022-11-11 17:00] VITALS: BP 129/81; PULSE 90; RESP 20; TEMP 99.1; O2SAT 98
[2022-11-11] MEDS: MAGNESIUM OXIDE 400 MG TAB PO SCH (21:53)
[2022-11-11 22:00] VITALS: BP 103/64; PULSE 86; RESP 16; TEMP 99.2; O2SAT 97
[2022-11-12] VITALS (7 sets, daily range): BP systolic 103–131; BP diastolic 64–92; PULSE 64–91; RESP 12–20; TEMP 97.1–99; O2SAT 93–100
[2022-11-12] MEDS: SODIUM CHLORIDE 0.9% 1,000 ML IV SCH (03:43)
[2022-11-12] MEDS: ACCU-CHEK COMFORT CURVE STRIP VI SCH ×5 (03:47→20:00)
[2022-11-12] MEDS: InsuLIN REG 1unit/0.01ml Soln (100units/ml) SC SCH ×5 (03:47→20:56)
[2022-11-12 06:04] LABS: Mean Corpuscular Hgb Conc. 32.2 g/dL (32.0-36.0); Monocytes # (auto) 1.3 10 ^3/uL (0-1.3); Neutrophils # (auto) 15.6 10 ^3/uL (1.6-8.6); Red Blood Cells 2.77 10^6/uL (4.0-5.20)
[2022-11-12 06:07] LABS: Basophils # (auto) 0.1 10 ^3/uL (0-0.2); Basophils % (auto) 0.4 % (0.0-2.0); Eosinophils # (auto) 0 10 ^3/uL (0-0.8); Eosinophils % (auto) 0.2 % (0.0-7.0); Hemoglobin 7.7 g/dL (12.2-16.2); Lymphocytes # (auto) 1.1 10 ^3/uL (0.4-5.4); Lymphocytes % (auto) 6.1 % (10.0-50.0); Mean Corpuscular Hemoglobin 27.9 pg (28.0-32.0); Mean Corpuscular Volume 86.7 fL (80.0-100.0); Neutrophils % (auto) 86.3 % (37.0-80.0); Red Cell Distribution Width 13.2 % (11.8-14.3); White Blood Cell 18.1 10^3/uL (4.4-10.8)
[2022-11-12 06:18] LABS: Anion Gap 9 (5-15); Carbon Dioxide 20 mmol/L (20-30); Chloride 104 mmol/L (98-107); Potassium 4.2 mmol/L (3.5-5.1); Sodium 133 mmol/L (136-145)
[2022-11-12 06:19] LABS: Calcium 8.1 mg/dL (8.7-10.4)
[2022-11-12 06:24] LABS: Glucose 81 mg/dL (74-106)
[2022-11-12 06:25] LABS: BUN/Creatinine Ratio 8.9 (10.0-20.0); Blood Urea Nitrogen 40 mg/dL (9-23); Magnesium 2.1 mg/dL (1.6-2.6)
[2022-11-12] MEDS: MAGNESIUM OXIDE 400 MG TAB PO SCH ×2 (08:33→22:00)
[2022-11-12] MEDS: INSULIN LANTUS (GLARGINE) 1 /0.01ml (100units/ml) SC SCH ×2 (08:34→22:06)
[2022-11-12] MEDS: PIPERACILLIN-TAZOB 3.375GM 100 ML IV SCH ×2 (08:37→22:00)
[2022-11-12] MEDS: ENOXAPARIN SOD 30 MG/0.3 ML SYRINGE SC SCH (08:38)
[2022-11-12] MEDS: HYDROmorphone HCL 2 MG/ML VL/or syr IV PRN ×3 (08:45→18:02)
[2022-11-12] MEDS ORDERED: CALCIUM GLUC 1,000mg/50ml-NS 50 ML IV ONE (10:00)
[2022-11-12] MEDS: DAKINS QUARTER STR 0.125% (NaHypochlorite) 473 ML TOPICAL SOL TOP SCH (10:00)
[2022-11-12] MEDS: HYDROcodone-ACET 5/325MG TAB PO PRN (15:01)
[2022-11-12] MEDS: SODIUM BICARBONATE 50ML VIAL 50 ML in SOD CHL 0.45% 1,000 ML IV SCH ×2 (16:00→21:15)
[2022-11-12] MEDS: ERGOCALCIFEROL 50,000 UNIT(1.25MG) CAP PO SCH (22:00)
[2022-11-12] MEDS: LINEZOLID 600MG/300ML 300 ML IV SCH (22:53)
[2022-11-12 23:09] LABS: INR 1.27 (0.9-1.15); Partial Thromboplastin Time 37.2 SEC (24.5-34.5); Prothrombin Time 13.1 sec (9.3-11.8)
[2022-11-13] VITALS (7 sets, daily range): BP systolic 107–134; BP diastolic 66–83; PULSE 72–92; RESP 14–19; TEMP 97.7–98.7; O2SAT 96–100
[2022-11-13] MEDS: ACCU-CHEK COMFORT CURVE STRIP VI SCH ×7 (00:24→23:56)
[2022-11-13] MEDS: ONDANSETRON HCL 4 MG/2 ML VIAL IV PRN (01:49)
[2022-11-13] MEDS: HYDROmorphone HCL 2 MG/ML VL/or syr IV PRN ×3 (02:30→20:20)
[2022-11-13] MEDS: InsuLIN REG 1unit/0.01ml Soln (100units/ml) SC SCH ×8 (04:00→23:58)
[2022-11-13] MEDS ORDERED: ceFAZolin 1GM/50ML 100 ML IV ONE (06:34)
[2022-11-13 07:03] LABS: Basophils # (auto) 0.1 10 ^3/uL (0-0.2); Eosinophils # (auto) 0 10 ^3/uL (0-0.8); Hemoglobin 7.9 g/dL (12.2-16.2); Lymphocytes % (auto) 4.7 % (10.0-50.0); Monocytes # (auto) 1.3 10 ^3/uL (0-1.3); Monocytes % (auto) 5.8 % (0.0-12.0)
[2022-11-13 07:06] LABS: Basophils % (auto) 0.3 % (0.0-2.0); Eosinophils % (auto) 0.2 % (0.0-7.0); Lymphocytes # (auto) 1.1 10 ^3/uL (0.4-5.4); Mean Corpuscular Hemoglobin 28.5 pg (28.0-32.0); Mean Corpuscular Hgb Conc. 32.9 g/dL (32.0-36.0); Mean Corpuscular Volume 86.8 fL (80.0-100.0); Neutrophils # (auto) 20.4 10 ^3/uL (1.6-8.6); Red Blood Cells 2.77 10^6/uL (4.0-5.20); Red Cell Distribution Width 13.1 % (11.8-14.3); White Blood Cell 22.9 10^3/uL (4.4-10.8)
[2022-11-13] MEDS ORDERED: BUPIVACAINE 0.5% P/F INJ 10 ML VIAL ONE (07:06)
[2022-11-13] MEDS ORDERED: DexAMETHasone SOD PHOS 10MG/1ML VIAL INJ ONE (07:12)
[2022-11-13] MEDS ORDERED: SODIUM CHLORIDE LOCK 10 ML ONE (07:12)
[2022-11-13] MEDS ORDERED: ONDANSETRON HCL 4 MG/2 ML VIAL ONE (07:12)
[2022-11-13] MEDS ORDERED: MIDAZOLAM HCL 2MG/2ML 2ml VIAL (1mg/ml) ONE (07:12)
[2022-11-13] MEDS ORDERED: PROPOFOL 10 MG/ML 20 ML IV ONE (07:12)
[2022-11-13] MEDS ORDERED: fentaNYL CITRATE 100 MCG/2 ML VL ONE (07:12)
[2022-11-13] MEDS ORDERED: EPINEPHrine HCL 1 MG/1 ML AMP ONE (07:13)
[2022-11-13] MEDS ORDERED: HYDROmorphone HCL 2 MG/ML VL/or syr IV PRN ×2 (07:30)
[2022-11-13] MEDS ORDERED: METOCLOPRAMIDE HCL 5MG/ml INJ 2ml VIAL IV PRN (07:30)
[2022-11-13] MEDS ORDERED: ACCU-CHEK COMFORT CURVE STRIP VI ONE (07:30)
[2022-11-13 07:34] LABS: Albumin 3.1 g/dL (3.2-4.8); Alkaline Phosphatase 138 U/L (46-116); Anion Gap 7 (5-15); Aspartate Aminotransferase < 8 U/L (13-40); BUN/Creatinine Ratio 6.4 (10.0-20.0); Calcium 8.1 mg/dL (8.7-10.4); Carbon Dioxide 20 mmol/L (20-30); Chloride 102 mmol/L (98-107); Glucose 112 mg/dL (74-106); Potassium 4.1 mmol/L (3.5-5.1); Sodium 129 mmol/L (136-145)
[2022-11-13 07:35] LABS: Bilirubin, Total 0.3 mg/dL (0.2-1.0); Total Protein 6.8 g/dL (5.7-8.2)
[2022-11-13 07:37] LABS: Alanine Aminotransferase < 9 U/L (7-40); Blood Urea Nitrogen 27 mg/dL (9-23)
[2022-11-13 08:07] LABS: Complement C3 194 mg/dL (82-167)
[2022-11-13 08:33] LABS: Erythrocyte Sedimentation Rate 119 mm/hr (0-20)
[2022-11-13] MEDS: DAKINS QUARTER STR 0.125% (NaHypochlorite) 473 ML TOPICAL SOL TOP SCH (10:00)
[2022-11-13] MEDS: ENOXAPARIN SOD 30 MG/0.3 ML SYRINGE SC SCH (10:29)
[2022-11-13] MEDS: FERROUS SULFATE 325mg EC TAB PO SCH ×2 (10:29→19:02)
[2022-11-13] MEDS: MAGNESIUM OXIDE 400 MG TAB PO SCH ×2 (10:29→21:22)
[2022-11-13] MEDS: PIPERACILLIN-TAZOB 3.375GM 100 ML IV SCH ×2 (10:30→21:22)
[2022-11-13] MEDS: INSULIN LANTUS (GLARGINE) 1 /0.01ml (100units/ml) SC SCH ×2 (11:08→21:38)
[2022-11-13] MEDS ORDERED: ERGOCALCIFEROL 50,000 UNIT(1.25MG) CAP PO SCH (11:15)
[2022-11-13] MEDS ORDERED: BUMETANIDE 2.5mg/10ml (0.25 mg/ml) INJ IV SCH (11:15)
[2022-11-13] MEDS: LINEZOLID 600MG/300ML 300 ML IV SCH (11:48)
[2022-11-13] MEDS: SODIUM BICARBONATE 50ML VIAL 50 ML in SOD CHL 0.45% 1,000 ML IV SCH ×2 (15:03→18:15)
[2022-11-13 15:07] LABS: Anti-Nuclear Antibody Direct Negative (Negative)
[2022-11-13] MEDS: HYDROcodone-ACET 5/325MG TAB PO PRN (16:13)
[2022-11-13] MEDS: BUMETANIDE 2.5mg/10ml (0.25 mg/ml) INJ IV SCH (19:01)
[2022-11-13] MEDS ORDERED: DEXTROSE (50%) 50ML SYRG IV PRN (20:30)
[2022-11-14] MEDS: LINEZOLID 600MG/300ML 300 ML IV SCH ×2 (02:08→09:31)
[2022-11-14] MEDS: HYDROmorphone HCL 2 MG/ML VL/or syr IV PRN ×4 (04:05→22:01)
[2022-11-14] MEDS: InsuLIN REG 1unit/0.01ml Soln (100units/ml) SC SCH ×5 (04:08→20:06)
[2022-11-14] MEDS: ACCU-CHEK COMFORT CURVE STRIP VI SCH ×5 (04:13→20:06)
[2022-11-14] MEDS: SODIUM BICARBONATE 50ML VIAL 50 ML in SOD CHL 0.45% 1,000 ML IV SCH ×2 (04:27→15:15)
[2022-11-14 05:00] VITALS: BP 133/89; PULSE 72; RESP 20; TEMP 97.8; O2SAT 96
[2022-11-14] MEDS: BUMETANIDE 2.5mg/10ml (0.25 mg/ml) INJ IV SCH ×2 (06:14→17:57)
[2022-11-14 07:26] LABS: Hematocrit 23.6 % (36.0-46.0); Hemoglobin 7.8 g/dL (12.2-16.2); Mean Corpuscular Hgb Conc. 32.9 g/dL (32.0-36.0); Mean Corpuscular Volume 85.1 fL (80.0-100.0); Red Blood Cells 2.78 10^6/uL (4.0-5.20); Red Cell Distribution Width 12.9 % (11.8-14.3)
[2022-11-14 07:37] LABS: White Blood Cell 30.9 10^3/uL (4.4-10.8)
[2022-11-14 07:39] LABS: Basophils % (manual) 0 (0.0-2.0); Blast Cells 0; Eosinophils % (manual) 0 (0-7); Myelocytes % 0; Promyelocytes % 0; Reactive Lymphocytes 0
[2022-11-14 07:52] LABS: Alkaline Phosphatase 124 U/L (46-116); Anion Gap 9 (5-15); Aspartate Aminotransferase < 8 U/L (13-40); BUN/Creatinine Ratio 7.7 (10.0-20.0); Bilirubin, Total 0.2 mg/dL (0.2-1.0); Blood Urea Nitrogen 31 mg/dL (9-23); Calcium 8.1 mg/dL (8.5-10.1); Carbon Dioxide 23 mmol/L (20-30); Chloride 97 mmol/L (98-107); Glucose 101 mg/dL (74-106); Sodium 129 mmol/L (136-145); Total Protein 6.7 g/dL (5.7-8.2)
[2022-11-14 08:00] LABS: Alanine Aminotransferase < 9 U/L (7-40)
[2022-11-14 08:01] LABS: CRP High Sensitivity 13.53 mg/dL (<1.0)
[2022-11-14 08:13] LABS: Erythrocyte Sedimentation Rate 116 mm/hr (0-20)
[2022-11-14 08:29] LABS: Band Neutrophils % (manual) 6; Lymphocytes % (manual) 5 (10.0-50.0); Metamyelocytes % 2; Monocytes % (manual) 5 (0-12); Platelet Estimate Increased
[2022-11-14 09:00] VITALS: BP 119/81; PULSE 75; RESP 20; TEMP 97.8; O2SAT 99
[2022-11-14] MEDS: MAGNESIUM OXIDE 400 MG TAB PO SCH ×2 (09:31→21:05)
[2022-11-14] MEDS: FERROUS SULFATE 325mg EC TAB PO SCH ×2 (09:31→17:56)
[2022-11-14] MEDS: PIPERACILLIN-TAZOB 3.375GM 100 ML IV SCH ×2 (09:31→21:05)
[2022-11-14] MEDS: ENOXAPARIN SOD 30 MG/0.3 ML SYRINGE SC SCH (09:31)
[2022-11-14] MEDS: INSULIN LANTUS (GLARGINE) 1 /0.01ml (100units/ml) SC SCH ×2 (09:48→22:03)
[2022-11-14] MEDS: DAKINS QUARTER STR 0.125% (NaHypochlorite) 473 ML TOPICAL SOL TOP SCH (10:00)
[2022-11-14 13:00] VITALS: BP 118/69; PULSE 72; RESP 18; TEMP 97.8; O2SAT 98
[2022-11-14 16:39] VITALS: BP 123/72; PULSE 72; RESP 18; TEMP 97.8; O2SAT 96
[2022-11-14] MEDS: HYDROcodone-ACET 5/325MG TAB PO PRN (17:56)
[2022-11-14 20:00] VITALS: PULSE 78; RESP 14; O2SAT 98
[2022-11-14 21:52] VITALS: BP 119/77; PULSE 81; RESP 16; TEMP 98.2; O2SAT 97
[2022-11-15] VITALS (8 sets, daily range): BP systolic 105–133; BP diastolic 65–84; PULSE 70–105; RESP 15–20; TEMP 98.3–99.9; O2SAT 95–99
[2022-11-15] MEDS: ACCU-CHEK COMFORT CURVE STRIP VI SCH ×6 (00:28→23:24)
[2022-11-15] MEDS: LINEZOLID 600MG/300ML 300 ML IV SCH ×3 (00:33→22:15)
[2022-11-15] MEDS: SODIUM BICARBONATE 50ML VIAL 50 ML in SOD CHL 0.45% 1,000 ML IV SCH ×3 (01:45→23:25)
[2022-11-15] MEDS: InsuLIN REG 1unit/0.01ml Soln (100units/ml) SC SCH ×6 (04:00→20:00)
[2022-11-15] MEDS: HYDROmorphone HCL 2 MG/ML VL/or syr IV PRN ×4 (04:40→20:59)
[2022-11-15] MEDS: ONDANSETRON HCL 4 MG/2 ML VIAL IV PRN ×2 (04:42→09:16)
[2022-11-15] MEDS: BUMETANIDE 2.5mg/10ml (0.25 mg/ml) INJ IV SCH (06:14)
[2022-11-15 06:45] LABS: Eosinophils # (auto) 0 10 ^3/uL (0-0.8); Eosinophils % (auto) 0.2 % (0.0-7.0); Lymphocytes # (auto) 2.1 10 ^3/uL (0.4-5.4); Neutrophils # (auto) 17.3 10 ^3/uL (1.6-8.6); Neutrophils % (auto) 81.9 % (37.0-80.0); Red Cell Distribution Width 13.6 % (11.8-14.3)
[2022-11-15 06:47] LABS: Basophils # (auto) 0 10 ^3/uL (0-0.2); Basophils % (auto) 0.2 % (0.0-2.0); Hematocrit 22.2 % (36.0-46.0); Hemoglobin 7.2 g/dL (12.2-16.2); Mean Corpuscular Hgb Conc. 32.6 g/dL (32.0-36.0); Monocytes # (auto) 1.6 10 ^3/uL (0-1.3); Monocytes % (auto) 7.7 % (0.0-12.0); Red Blood Cells 2.58 10^6/uL (4.0-5.20); White Blood Cell 21.1 10^3/uL (4.4-10.8)
[2022-11-15 07:06] LABS: Albumin 2.8 g/dL (3.2-4.8); Alkaline Phosphatase 109 U/L (46-116); Anion Gap 9 (5-15); Aspartate Aminotransferase 10 U/L (13-40); BUN/Creatinine Ratio 7.5 (10.0-20.0); Bilirubin, Total < 0.2 mg/dL (0.2-1.0); Blood Urea Nitrogen 29 mg/dL (9-23); Calcium 7.5 mg/dL (8.5-10.1); Carbon Dioxide 22 mmol/L (20-30); Chloride 101 mmol/L (98-107); Glucose 78 mg/dL (74-106); Potassium 3.4 mmol/L (3.5-5.1); Sodium 132 mmol/L (136-145); Total Protein 6.1 g/dL (5.7-8.2)
[2022-11-15 07:07] LABS: Alanine Aminotransferase < 9 U/L (7-40)
[2022-11-15 07:14] LABS: CRP High Sensitivity 7.33 mg/dL (<1.0)
[2022-11-15 07:24] LABS: Erythrocyte Sedimentation Rate 123 mm/hr (0-20)
[2022-11-15 07:26] LABS: Magnesium 1.5 mg/dL (1.6-2.6)
[2022-11-15] MEDS: PIPERACILLIN-TAZOB 3.375GM 100 ML IV SCH ×2 (09:17→22:03)
[2022-11-15] MEDS: ENOXAPARIN SOD 30 MG/0.3 ML SYRINGE SC SCH (09:21)
[2022-11-15] MEDS: FERROUS SULFATE 325mg EC TAB PO SCH ×2 (09:22→18:06)
[2022-11-15] MEDS: MAGNESIUM OXIDE 400 MG TAB PO SCH ×2 (09:22→22:26)
[2022-11-15] MEDS: DAKINS QUARTER STR 0.125% (NaHypochlorite) 473 ML TOPICAL SOL TOP SCH (09:23)
[2022-11-15] MEDS: INSULIN LANTUS (GLARGINE) 1 /0.01ml (100units/ml) SC SCH (09:34)
[2022-11-15] MEDS ORDERED: POTASSIUM CHLORIDE 20 MEQ, LIDOCAINE 1% (LOCAL ANESTH.) 2 ML in SODIUM CHL 0.9% 100 ML IV ONE (11:00)
[2022-11-15] MEDS: METOCLOPRAMIDE HCL 5MG/ml INJ 2ml VIAL IV PRN (11:03)
[2022-11-15] MEDS ORDERED: POTASSIUM EFFERVESENT TAB 25 MEQ PO ONE (14:45)
[2022-11-15] MEDS ORDERED: INSULIN LANTUS (GLARGINE) 1 /0.01ml (100units/ml) SC SCH (22:00)
[2022-11-16] VITALS (7 sets, daily range): BP systolic 106–137; BP diastolic 63–76; PULSE 77–95; RESP 16–20; TEMP 97.8–98.7; O2SAT 94–100
[2022-11-16] MEDS: HYDROmorphone HCL 2 MG/ML VL/or syr IV PRN ×4 (01:06→18:27)
[2022-11-16] MEDS: METOCLOPRAMIDE HCL 5MG/ml INJ 2ml VIAL IV PRN (01:10)
[2022-11-16] MEDS: ACCU-CHEK COMFORT CURVE STRIP VI SCH ×6 (01:30→20:35)
[2022-11-16] MEDS: InsuLIN REG 1unit/0.01ml Soln (100units/ml) SC SCH ×6 (04:00→20:00)
[2022-11-16 05:56] LABS: Albumin 2.9 g/dL (3.2-4.8); Alkaline Phosphatase 121 U/L (46-116); Anion Gap 8 (5-15); Aspartate Aminotransferase 18 U/L (13-40); BUN/Creatinine Ratio 7.1 (10.0-20.0); Bilirubin, Total 0.3 mg/dL (0.2-1.0); Blood Urea Nitrogen 28 mg/dL (9-23); Calcium 7.8 mg/dL (8.5-10.1); Carbon Dioxide 27 mmol/L (20-30); Chloride 100 mmol/L (98-107); Eosinophils # (auto) 0 10 ^3/uL (0-0.8); Eosinophils % (auto) 0.1 % (0.0-7.0); Glucose 82 mg/dL (74-106); Lymphocytes # (auto) 1.3 10 ^3/uL (0.4-5.4); Mean Corpuscular Hemoglobin 27.9 pg (28.0-32.0); Sodium 135 mmol/L (136-145); Total Protein 6.2 g/dL (5.7-8.2)
[2022-11-16] MEDS: BUMETANIDE 2.5mg/10ml (0.25 mg/ml) INJ IV SCH ×2 (05:59→11:37)
[2022-11-16 06:00] LABS: Basophils # (auto) 0 10 ^3/uL (0-0.2); Basophils % (auto) 0.2 % (0.0-2.0); Hematocrit 22.1 % (36.0-46.0); Hemoglobin 7.2 g/dL (12.2-16.2); Lymphocytes % (auto) 6.5 % (10.0-50.0); Mean Corpuscular Hgb Conc. 32.5 g/dL (32.0-36.0); Mean Corpuscular Volume 85.9 fL (80.0-100.0); Monocytes # (auto) 1.6 10 ^3/uL (0-1.3); Monocytes % (auto) 7.9 % (0.0-12.0); Neutrophils # (auto) 16.9 10 ^3/uL (1.6-8.6); Neutrophils % (auto) 85.3 % (37.0-80.0); Red Blood Cells 2.57 10^6/uL (4.0-5.20); Red Cell Distribution Width 13.5 % (11.8-14.3); White Blood Cell 19.8 10^3/uL (4.4-10.8)
[2022-11-16 06:05] LABS: CRP High Sensitivity 14.34 mg/dL (<1.0)
[2022-11-16 06:06] LABS: Alanine Aminotransferase < 9 U/L (7-40)
[2022-11-16 07:28] LABS: Erythrocyte Sedimentation Rate 123 mm/hr (0-20)
[2022-11-16] MEDS: FERROUS SULFATE 325mg EC TAB PO SCH ×2 (08:14→18:26)
[2022-11-16] MEDS ORDERED: CALCIUM GLUC 1,000mg/50ml-NS 50 ML IV ONE (08:30)
[2022-11-16] MEDS: SODIUM BICARBONATE 50ML VIAL 50 ML in SOD CHL 0.45% 1,000 ML IV SCH (08:41)
[2022-11-16] MEDS: HYDROcodone-ACET 5/325MG TAB PO PRN ×2 (08:47→20:10)
[2022-11-16] MEDS: MAGNESIUM OXIDE 400 MG TAB PO SCH ×2 (11:36→22:09)
[2022-11-16] MEDS: ENOXAPARIN SOD 30 MG/0.3 ML SYRINGE SC SCH (11:36)
[2022-11-16] MEDS: LINEZOLID 600MG/300ML 300 ML IV SCH ×2 (11:38→22:03)
[2022-11-16] MEDS: PIPERACILLIN-TAZOB 3.375GM 100 ML IV SCH ×2 (11:38→21:58)
[2022-11-16] MEDS: DAKINS QUARTER STR 0.125% (NaHypochlorite) 473 ML TOPICAL SOL TOP SCH (12:17)
[2022-11-17] VITALS (14 sets, daily range): BP systolic 106–156; BP diastolic 66–92; PULSE 74–90; RESP 14–18; TEMP 97.6–98.8; O2SAT 96–99
[2022-11-17] MEDS: HYDROmorphone HCL 2 MG/ML VL/or syr IV PRN ×5 (00:26→20:47)
[2022-11-17] MEDS: InsuLIN REG 1unit/0.01ml Soln (100units/ml) SC SCH ×7 (00:46→23:48)
[2022-11-17] MEDS: ACCU-CHEK COMFORT CURVE STRIP VI SCH ×7 (00:49→23:48)
[2022-11-17] MEDS: METOCLOPRAMIDE HCL 5MG/ml INJ 2ml VIAL IV PRN (04:21)
[2022-11-17 06:15] LABS: Albumin 2.8 g/dL (3.2-4.8); Alkaline Phosphatase 120 U/L (46-116); Anion Gap 8 (5-15); Aspartate Aminotransferase 18 U/L (13-40); BUN/Creatinine Ratio 6.7 (10.0-20.0); Bilirubin, Total 0.3 mg/dL (0.2-1.0); Blood Urea Nitrogen 26 mg/dL (9-23); Carbon Dioxide 28 mmol/L (20-30); Chloride 97 mmol/L (98-107); Glucose 73 mg/dL (74-106); Potassium 3.7 mmol/L (3.5-5.1); Sodium 133 mmol/L (136-145); Total Protein 6.2 g/dL (5.7-8.2)
[2022-11-17 06:19] LABS: Alanine Aminotransferase < 9 U/L (7-40)
[2022-11-17 06:41] LABS: Basophils # (auto) 0.1 10 ^3/uL (0-0.2); Eosinophils # (auto) 0.1 10 ^3/uL (0-0.8); Hematocrit 21.2 % (36.0-46.0); Red Blood Cells 2.42 10^6/uL (4.0-5.20); White Blood Cell 14.7 10^3/uL (4.4-10.8)
[2022-11-17 06:45] LABS: Basophils % (auto) 0.5 % (0.0-2.0); Eosinophils % (auto) 0.8 % (0.0-7.0); Lymphocytes # (auto) 2.1 10 ^3/uL (0.4-5.4); Lymphocytes % (auto) 14.1 % (10.0-50.0); Mean Corpuscular Hemoglobin 28.6 pg (28.0-32.0); Mean Corpuscular Hgb Conc. 32.7 g/dL (32.0-36.0); Mean Corpuscular Volume 87.5 fL (80.0-100.0); Monocytes % (auto) 7.1 % (0.0-12.0); Neutrophils # (auto) 11.4 10 ^3/uL (1.6-8.6); Neutrophils % (auto) 77.5 % (37.0-80.0); Red Cell Distribution Width 13.5 % (11.8-14.3)
[2022-11-17 07:15] LABS: Erythrocyte Sedimentation Rate > 140 mm/hr (0-20)
[2022-11-17 07:19] LABS: Hemoglobin 6.9 g/dL (12.2-16.2)
[2022-11-17 07:42] LABS: Magnesium 1.4 mg/dL (1.6-2.6)
[2022-11-17] MEDS: FERROUS SULFATE 325mg EC TAB PO SCH ×2 (08:07→17:42)
[2022-11-17 08:25] LABS: % Iron Saturation 21.4 % (15-50)
[2022-11-17] MEDS: PIPERACILLIN-TAZOB 3.375GM 100 ML IV SCH (10:58)
[2022-11-17] MEDS: LINEZOLID 600MG/300ML 300 ML IV SCH (10:58)
[2022-11-17] MEDS: ENOXAPARIN SOD 30 MG/0.3 ML SYRINGE SC SCH (10:59)
[2022-11-17] MEDS: BUMETANIDE 2.5mg/10ml (0.25 mg/ml) INJ IV SCH (11:00)
[2022-11-17] MEDS: DAKINS QUARTER STR 0.125% (NaHypochlorite) 473 ML TOPICAL SOL TOP SCH (11:02)
[2022-11-17] MEDS: HYDROcodone-ACET 5/325MG TAB PO PRN (13:36)
[2022-11-17] MEDS ORDERED: DAPTOMYCIN IV SCH (17:00)
[2022-11-17] MEDS: DAPTOmycin 500 MG in SODIUM CHL 0.9% 50 ML IV SCH (18:45)
[2022-11-18] VITALS (7 sets, daily range): BP systolic 132–159; BP diastolic 70–98; PULSE 80–89; RESP 15–20; TEMP 97.8–98.4; O2SAT 94–100
[2022-11-18] MEDS: InsuLIN REG 1unit/0.01ml Soln (100units/ml) SC SCH ×6 (04:00→23:34)
[2022-11-18] MEDS: ACCU-CHEK COMFORT CURVE STRIP VI SCH ×5 (04:07→20:04)
[2022-11-18] MEDS: HYDROmorphone HCL 2 MG/ML VL/or syr IV PRN ×5 (04:10→21:43)
[2022-11-18] MEDS ORDERED: diphenhdrAMINE HCL 25 MG CAP PO ONE (08:30)
[2022-11-18] MEDS: FERROUS SULFATE 325mg EC TAB PO SCH ×2 (08:36→17:12)
[2022-11-18 09:06] LABS: Basophils # (auto) 0 10 ^3/uL (0-0.2); Basophils % (auto) 0.4 % (0.0-2.0); Eosinophils # (auto) 0.2 10 ^3/uL (0-0.8); Eosinophils % (auto) 1.3 % (0.0-7.0); Hematocrit 29.5 % (36.0-46.0); Hemoglobin 9.7 g/dL (12.2-16.2); Lymphocytes # (auto) 1.5 10 ^3/uL (0.4-5.4); Lymphocytes % (auto) 12.4 % (10.0-50.0); Mean Corpuscular Hemoglobin 28.8 pg (28.0-32.0); Mean Corpuscular Hgb Conc. 32.9 g/dL (32.0-36.0); Mean Corpuscular Volume 87.7 fL (80.0-100.0); Monocytes # (auto) 0.8 10 ^3/uL (0-1.3); Monocytes % (auto) 6.4 % (0.0-12.0); Neutrophils # (auto) 9.3 10 ^3/uL (1.6-8.6); Neutrophils % (auto) 79.5 % (37.0-80.0); Red Blood Cells 3.36 10^6/uL (4.0-5.20); White Blood Cell 11.7 10^3/uL (4.4-10.8)
[2022-11-18 09:24] LABS: Alkaline Phosphatase 114 U/L (46-116); Anion Gap 10 (5-15); Aspartate Aminotransferase 12 U/L (13-40); BUN/Creatinine Ratio 6.4 (10.0-20.0); Bilirubin, Total 0.3 mg/dL (0.2-1.0); Blood Urea Nitrogen 24 mg/dL (9-23); Calcium 8.3 mg/dL (8.5-10.1); Carbon Dioxide 23 mmol/L (20-30); Chloride 99 mmol/L (98-107); Glucose 109 mg/dL (74-106); Potassium 4.3 mmol/L (3.5-5.1); Sodium 132 mmol/L (136-145); Total Protein 6.6 g/dL (5.7-8.2)
[2022-11-18 09:26] LABS: Alanine Aminotransferase < 9 U/L (7-40)
[2022-11-18 09:33] LABS: CRP High Sensitivity 13.31 mg/dL (<1.0)
[2022-11-18 09:43] LABS: Erythrocyte Sedimentation Rate 102 mm/hr (0-20)
[2022-11-18] MEDS: ENOXAPARIN SOD 30 MG/0.3 ML SYRINGE SC SCH (09:48)
[2022-11-18] MEDS: BUMETANIDE 2.5mg/10ml (0.25 mg/ml) INJ IV SCH (09:49)
[2022-11-18] MEDS: DAKINS QUARTER STR 0.125% (NaHypochlorite) 473 ML TOPICAL SOL TOP SCH (09:50)
[2022-11-18 09:54] LABS: Magnesium 1.5 mg/dL (1.6-2.6)
[2022-11-18 10:25] LABS: INR 1.14 (0.9-1.15); Partial Thromboplastin Time 36.5 SEC (24.5-34.5); Prothrombin Time 11.9 sec (9.3-11.8)
[2022-11-18] MEDS: METOCLOPRAMIDE HCL 5MG/ml INJ 2ml VIAL IV PRN (12:23)
[2022-11-18] MEDS ORDERED: hydrALAZINE HCL 20 MG/ML VL IV PRN (13:15)
[2022-11-18] MEDS: MAGNESIUM SULFATE 1GM/100ML 100 ML IV SCH ×2 (14:01→15:06)
[2022-11-19] VITALS (7 sets, daily range): BP systolic 146–165; BP diastolic 88–96; PULSE 79–94; RESP 15–17; TEMP 97.7–98.1; O2SAT 96–99
[2022-11-19] MEDS: ACCU-CHEK COMFORT CURVE STRIP VI SCH ×6 (00:08→20:19)
[2022-11-19] MEDS: InsuLIN REG 1unit/0.01ml Soln (100units/ml) SC SCH ×5 (04:00→20:21)
[2022-11-19] MEDS: METOCLOPRAMIDE HCL 5MG/ml INJ 2ml VIAL IV PRN ×2 (04:33→16:05)
[2022-11-19] MEDS: HYDROmorphone HCL 2 MG/ML VL/or syr IV PRN ×4 (05:44→21:29)
[2022-11-19 06:02] LABS: Basophils # (auto) 0 10 ^3/uL (0-0.2); Basophils % (auto) 0.4 % (0.0-2.0); Eosinophils # (auto) 0.2 10 ^3/uL (0-0.8); Eosinophils % (auto) 1.4 % (0.0-7.0); Hematocrit 28.8 % (36.0-46.0); Hemoglobin 9.6 g/dL (12.2-16.2); Lymphocytes # (auto) 1.5 10 ^3/uL (0.4-5.4); Lymphocytes % (auto) 13.5 % (10.0-50.0); Mean Corpuscular Hemoglobin 28.9 pg (28.0-32.0); Mean Corpuscular Hgb Conc. 33.3 g/dL (32.0-36.0); Mean Corpuscular Volume 86.9 fL (80.0-100.0); Monocytes # (auto) 0.7 10 ^3/uL (0-1.3); Monocytes % (auto) 6.4 % (0.0-12.0); Neutrophils # (auto) 8.9 10 ^3/uL (1.6-8.6); Neutrophils % (auto) 78.3 % (37.0-80.0); Red Blood Cells 3.31 10^6/uL (4.0-5.20); Red Cell Distribution Width 13.8 % (11.8-14.3); White Blood Cell 11.4 10^3/uL (4.4-10.8)
[2022-11-19 06:29] LABS: Alkaline Phosphatase 111 U/L (46-116); BUN/Creatinine Ratio 6.7 (10.0-20.0); Blood Urea Nitrogen 25 mg/dL (9-23); Calcium 8.3 mg/dL (8.5-10.1); Chloride 97 mmol/L (98-107); Glucose 106 mg/dL (74-106); Potassium 4.2 mmol/L (3.5-5.1); Sodium 132 mmol/L (136-145)
[2022-11-19 06:30] LABS: Albumin 3.2 g/dL (3.2-4.8); Aspartate Aminotransferase 11 U/L (13-40)
[2022-11-19 06:31] LABS: Bilirubin, Total 0.3 mg/dL (0.2-1.0); Total Protein 6.9 g/dL (5.7-8.2)
[2022-11-19 06:39] LABS: CRP High Sensitivity 9.64 mg/dL (<1.0)
[2022-11-19 06:44] LABS: Alanine Aminotransferase < 9 U/L (7-40)
[2022-11-19 07:00] LABS: Anion Gap 8 (5-15); Carbon Dioxide 27 mmol/L (20-30)
[2022-11-19] MEDS: FERROUS SULFATE 325mg EC TAB PO SCH ×2 (07:27→17:59)
[2022-11-19] MEDS: ENOXAPARIN SOD 30 MG/0.3 ML SYRINGE SC SCH (09:00)
[2022-11-19] MEDS: BUMETANIDE 2.5mg/10ml (0.25 mg/ml) INJ IV SCH (09:01)
[2022-11-19] MEDS: amLODIPine BESYLATE 5 MG TAB PO SCH (09:01)
[2022-11-19] MEDS: ONDANSETRON ODT 4 MG TAB PO PRN (09:48)
[2022-11-19] MEDS: DAKINS QUARTER STR 0.125% (NaHypochlorite) 473 ML TOPICAL SOL TOP SCH (09:55)
[2022-11-19] MEDS: DAPTOmycin 500 MG in SODIUM CHL 0.9% 50 ML IV SCH (17:59)
[2022-11-19] MEDS ORDERED: AMPICILLIN & SULBACTAM SODIUM 3 GM in SODIUM CHL 0.9% 100 ML IV SCH (19:30)
[2022-11-19] MEDS: ERGOCALCIFEROL 50,000 UNIT(1.25MG) CAP PO SCH (20:40)
[2022-11-20] VITALS (7 sets, daily range): BP systolic 133–170; BP diastolic 82–102; PULSE 84–98; RESP 16–20; TEMP 98.2–98.9; O2SAT 95–100
[2022-11-20] MEDS: ACCU-CHEK COMFORT CURVE STRIP VI SCH ×7 (00:14→23:48)
[2022-11-20] MEDS: InsuLIN REG 1unit/0.01ml Soln (100units/ml) SC SCH ×7 (04:44→23:49)
[2022-11-20 05:55] LABS: Basophils # (auto) 0.1 10 ^3/uL (0-0.2); Basophils % (auto) 0.6 % (0.0-2.0); Eosinophils # (auto) 0.2 10 ^3/uL (0-0.8); Eosinophils % (auto) 1.9 % (0.0-7.0); Hematocrit 29.2 % (36.0-46.0); Hemoglobin 9.6 g/dL (12.2-16.2); Lymphocytes # (auto) 1.7 10 ^3/uL (0.4-5.4); Lymphocytes % (auto) 17.4 % (10.0-50.0); Mean Corpuscular Hemoglobin 28.7 pg (28.0-32.0); Mean Corpuscular Volume 87.1 fL (80.0-100.0); Monocytes % (auto) 9.5 % (0.0-12.0); Neutrophils # (auto) 7.1 10 ^3/uL (1.6-8.6); Neutrophils % (auto) 70.6 % (37.0-80.0); Nucleated Red Blood Cells % 0.1 %; Red Blood Cells 3.35 10^6/uL (4.0-5.20); Red Cell Distribution Width 13.6 % (11.8-14.3)
[2022-11-20 06:13] LABS: Albumin 3.2 g/dL (3.2-4.8); Alkaline Phosphatase 101 U/L (46-116); Anion Gap 9 (5-15); Aspartate Aminotransferase 15 U/L (13-40); Bilirubin, Total 0.2 mg/dL (0.2-1.0); Blood Urea Nitrogen 22 mg/dL (9-23); Calcium 8.6 mg/dL (8.5-10.1); Carbon Dioxide 26 mmol/L (20-30); Chloride 98 mmol/L (98-107); Glucose 146 mg/dL (74-106); Potassium 3.9 mmol/L (3.5-5.1); Sodium 133 mmol/L (136-145); Total Protein 7.2 g/dL (5.7-8.2)
[2022-11-20 06:14] LABS: Alanine Aminotransferase < 9 U/L (7-40)
[2022-11-20 06:22] LABS: CRP High Sensitivity 8.51 mg/dL (<1.0)
[2022-11-20 07:21] LABS: Magnesium 1.6 mg/dL (1.6-2.6)
[2022-11-20] MEDS: FERROUS SULFATE 325mg EC TAB PO SCH ×2 (07:43→18:43)
[2022-11-20] MEDS: HYDROmorphone HCL 2 MG/ML VL/or syr IV PRN ×4 (08:20→21:38)
[2022-11-20] MEDS: ONDANSETRON ODT 4 MG TAB PO PRN ×3 (09:36→18:45)
[2022-11-20] MEDS: ENOXAPARIN SOD 30 MG/0.3 ML SYRINGE SC SCH (09:36)
[2022-11-20] MEDS: amLODIPine BESYLATE 5 MG TAB PO SCH (09:37)
[2022-11-20] MEDS: BUMETANIDE 2.5mg/10ml (0.25 mg/ml) INJ IV SCH (09:37)
[2022-11-20] MEDS: DAKINS QUARTER STR 0.125% (NaHypochlorite) 473 ML TOPICAL SOL TOP SCH (09:39)
[2022-11-20] MEDS: AMPICILLIN & SULBACTAM SODIUM 3 GM in SODIUM CHL 0.9% 100 ML IV SCH (21:38)
[2022-11-21] MEDS: ACCU-CHEK COMFORT CURVE STRIP VI SCH ×5 (04:43→21:00)
[2022-11-21] MEDS: InsuLIN REG 1unit/0.01ml Soln (100units/ml) SC SCH ×6 (04:45→23:05)
[2022-11-21 05:00] VITALS: BP 104/54; PULSE 80; RESP 17; TEMP 98.2; O2SAT 97
[2022-11-21 06:19] LABS: Basophils # (auto) 0.1 10 ^3/uL (0-0.2); Basophils % (auto) 0.6 % (0.0-2.0); Eosinophils # (auto) 0.2 10 ^3/uL (0-0.8); Eosinophils % (auto) 1.8 % (0.0-7.0); Hematocrit 27.9 % (36.0-46.0); Hemoglobin 9.2 g/dL (12.2-16.2); Lymphocytes # (auto) 1.4 10 ^3/uL (0.4-5.4); Lymphocytes % (auto) 14.8 % (10.0-50.0); Mean Corpuscular Hemoglobin 28.7 pg (28.0-32.0); Mean Corpuscular Hgb Conc. 33.1 g/dL (32.0-36.0); Mean Corpuscular Volume 86.5 fL (80.0-100.0); Monocytes % (auto) 10.3 % (0.0-12.0); Neutrophils # (auto) 6.7 10 ^3/uL (1.6-8.6); Neutrophils % (auto) 72.5 % (37.0-80.0); Red Blood Cells 3.22 10^6/uL (4.0-5.20); Red Cell Distribution Width 13.2 % (11.8-14.3); White Blood Cell 9.3 10^3/uL (4.4-10.8)
[2022-11-21 06:26] LABS: Albumin 3.2 g/dL (3.2-4.8); Alkaline Phosphatase 101 U/L (46-116); Aspartate Aminotransferase 14 U/L (13-40); Calcium 8.3 mg/dL (8.7-10.4); Carbon Dioxide 28 mmol/L (20-30); Chloride 94 mmol/L (98-107); Glucose 196 mg/dL (74-106)
[2022-11-21 06:27] LABS: Anion Gap 7 (5-15); BUN/Creatinine Ratio 6.6 (10.0-20.0); Bilirubin, Total < 0.2 mg/dL (0.2-1.0); Blood Urea Nitrogen 26 mg/dL (9-23); Magnesium 1.4 mg/dL (1.6-2.6); Sodium 129 mmol/L (136-145)
[2022-11-21 06:38] LABS: Alanine Aminotransferase < 9 U/L (7-40)
[2022-11-21] MEDS: FERROUS SULFATE 325mg EC TAB PO SCH ×2 (08:17→17:56)
[2022-11-21 09:00] VITALS: BP 137/101; PULSE 95; RESP 16; TEMP 98.3; O2SAT 99
[2022-11-21] MEDS: ENOXAPARIN SOD 30 MG/0.3 ML SYRINGE SC SCH (09:08)
[2022-11-21] MEDS: amLODIPine BESYLATE 5 MG TAB PO SCH (09:08)
[2022-11-21] MEDS: METOCLOPRAMIDE HCL 5MG/ml INJ 2ml VIAL IV PRN (09:08)
[2022-11-21] MEDS: HYDROmorphone HCL 2 MG/ML VL/or syr IV PRN ×3 (09:09→21:25)
[2022-11-21] MEDS: AMPICILLIN & SULBACTAM SODIUM 3 GM in SODIUM CHL 0.9% 100 ML IV SCH ×2 (09:09→21:34)
[2022-11-21] MEDS: BUMETANIDE 2.5mg/10ml (0.25 mg/ml) INJ IV SCH ×2 (09:10→11:00)
[2022-11-21] MEDS: DAKINS QUARTER STR 0.125% (NaHypochlorite) 473 ML TOPICAL SOL TOP SCH (10:00)
[2022-11-21 13:00] VITALS: BP 159/89; PULSE 103; RESP 20; TEMP 97.9; O2SAT 99
[2022-11-21 17:00] VITALS: BP_SYST 132; BP_SYST 141; BP_DIAS 68; BP_DIAS 87; PULSE 72; PULSE 84; RESP 18; RESP 20; TEMP 97.8; TEMP 98.2; O2SAT 93; O2SAT 98
[2022-11-22] MEDS: ACCU-CHEK COMFORT CURVE STRIP VI SCH ×6 (04:00→21:02)
[2022-11-22] MEDS: InsuLIN REG 1unit/0.01ml Soln (100units/ml) SC SCH ×5 (04:00→20:00)
[2022-11-22] MEDS: FERROUS SULFATE 325mg EC TAB PO SCH ×2 (08:00→17:05)
[2022-11-22] MEDS: DAKINS QUARTER STR 0.125% (NaHypochlorite) 473 ML TOPICAL SOL TOP SCH ×2 (10:00→22:00)
[2022-11-22] MEDS: BUMETANIDE 2.5mg/10ml (0.25 mg/ml) INJ IV SCH (10:00)
[2022-11-22] MEDS: AMPICILLIN & SULBACTAM SODIUM 3 GM in SODIUM CHL 0.9% 100 ML IV SCH ×2 (10:00→22:19)
[2022-11-22] MEDS: amLODIPine BESYLATE 5 MG TAB PO SCH (10:00)
[2022-11-22] MEDS: ENOXAPARIN SOD 30 MG/0.3 ML SYRINGE SC SCH (10:00)
[2022-11-22 11:04] LABS: Basophils # (auto) 0.1 10 ^3/uL (0-0.2); Basophils % (auto) 0.6 % (0.0-2.0); Eosinophils # (auto) 0.3 10 ^3/uL (0-0.8); Hematocrit 30.2 % (36.0-46.0); Hemoglobin 9.6 g/dL (12.2-16.2); Lymphocytes % (auto) 22.9 % (10.0-50.0); Mean Corpuscular Hemoglobin 28.1 pg (28.0-32.0); Mean Corpuscular Volume 87.9 fL (80.0-100.0); Monocytes # (auto) 1.2 10 ^3/uL (0-1.3); Monocytes % (auto) 13.7 % (0.0-12.0); Neutrophils # (auto) 5.2 10 ^3/uL (1.6-8.6); Neutrophils % (auto) 59.8 % (37.0-80.0); Nucleated Red Blood Cells % 0.3 %; Red Blood Cells 3.43 10^6/uL (4.0-5.20); Red Cell Distribution Width 13.4 % (11.8-14.3); White Blood Cell 8.7 10^3/uL (4.4-10.8)
[2022-11-22 11:20] LABS: Albumin 3.3 g/dL (3.2-4.8); Alkaline Phosphatase 90 U/L (46-116); Anion Gap 8 (5-15); Aspartate Aminotransferase 10 U/L (13-40); BUN/Creatinine Ratio 6.4 (10.0-20.0); Bilirubin, Total < 0.2 mg/dL (0.2-1.0); Blood Urea Nitrogen 26 mg/dL (9-23); CRP High Sensitivity 4.02 mg/dL (<1.0); Calcium 8.4 mg/dL (8.5-10.1); Carbon Dioxide 25 mmol/L (20-30); Chloride 101 mmol/L (98-107); Glucose 140 mg/dL (74-106); Potassium 3.9 mmol/L (3.5-5.1); Total Protein 7.1 g/dL (5.7-8.2)
[2022-11-22 11:35] LABS: Alanine Aminotransferase < 9 U/L (7-40); Sodium 134 mmol/L (136-145)
[2022-11-22 16:35] VITALS: BP 119/77; PULSE 89; RESP 18; TEMP 98.6; O2SAT 96
[2022-11-22] MEDS: HYDROcodone-ACET 5/325MG TAB PO PRN (19:02)
[2022-11-22] MEDS ORDERED: CALCIUM GLUC 1,000mg/50ml-NS 50 ML IV ONE (19:15)
[2022-11-22 22:00] VITALS: BP 120/72; PULSE 97; RESP 18; TEMP 98.3; O2SAT 98
[2022-11-23] MEDS: ACCU-CHEK COMFORT CURVE STRIP VI SCH ×4 (02:08→13:06)
[2022-11-23] MEDS: InsuLIN REG 1unit/0.01ml Soln (100units/ml) SC SCH ×4 (02:09→12:46)
[2022-11-23 05:00] VITALS: BP 105/62; PULSE 81; RESP 18; TEMP 98.2; O2SAT 97
[2022-11-23 06:20] LABS: Hematocrit 28.3 % (36.0-46.0); Hemoglobin 9.4 g/dL (12.2-16.2); Mean Corpuscular Hemoglobin 29.1 pg (28.0-32.0); Mean Corpuscular Hgb Conc. 33.2 g/dL (32.0-36.0); Mean Corpuscular Volume 87.8 fL (80.0-100.0); Red Blood Cells 3.22 10^6/uL (4.0-5.20); Red Cell Distribution Width 13.4 % (11.8-14.3); White Blood Cell 9.8 10^3/uL (4.4-10.8)
[2022-11-23 06:33] LABS: Albumin 3.5 g/dL (3.2-4.8); Alkaline Phosphatase 85 U/L (46-116); Anion Gap 9 (5-15); Aspartate Aminotransferase 9 U/L (13-40); BUN/Creatinine Ratio 7.5 (10.0-20.0); Blood Urea Nitrogen 32 mg/dL (9-23); Carbon Dioxide 25 mmol/L (20-30); Chloride 101 mmol/L (98-107); Glucose 89 mg/dL (74-106); Potassium 4.3 mmol/L (3.5-5.1); Sodium 135 mmol/L (136-145)
[2022-11-23 06:34] LABS: Bilirubin, Total 0.2 mg/dL (0.2-1.0); Total Protein 7.5 g/dL (5.7-8.2)
[2022-11-23 06:43] LABS: Alanine Aminotransferase < 9 U/L (7-40)
[2022-11-23 06:44] LABS: Basophils % (manual) 0 (0.0-2.0); Blast Cells 0; Myelocytes % 0; Promyelocytes % 0; Reactive Lymphocytes 0
[2022-11-23 07:11] LABS: CRP High Sensitivity 3.03 mg/dL (<1.0)
[2022-11-23 08:22] LABS: Band Neutrophils % (manual) 4; Eosinophils % (manual) 4 (0-7); Lymphocytes % (manual) 12 (10.0-50.0); Metamyelocytes % 2; Monocytes % (manual) 7 (0-12); Platelet Estimate Increased
[2022-11-23 08:30] VITALS: BP 130/84; PULSE 82; RESP 17; TEMP 98.8; O2SAT 98
[2022-11-23] MEDS: DAKINS QUARTER STR 0.125% (NaHypochlorite) 473 ML TOPICAL SOL TOP SCH (09:36)
[2022-11-23] MEDS: METOCLOPRAMIDE HCL 5MG/ml INJ 2ml VIAL IV PRN (09:46)
[2022-11-23] MEDS: BUMETANIDE 2.5mg/10ml (0.25 mg/ml) INJ IV SCH (09:46)
[2022-11-23] MEDS: HYDROcodone-ACET 5/325MG TAB PO PRN (09:47)
[2022-11-23] MEDS: FERROUS SULFATE 325mg EC TAB PO SCH (09:47)
[2022-11-23] MEDS: amLODIPine BESYLATE 5 MG TAB PO SCH (09:48)
[2022-11-23] MEDS: ENOXAPARIN SOD 30 MG/0.3 ML SYRINGE SC SCH (09:48)
[2022-11-23] MEDS: AMPICILLIN & SULBACTAM SODIUM 3 GM in SODIUM CHL 0.9% 100 ML IV SCH (09:49)
[2022-11-23 12:30] VITALS: BP 141/88; PULSE 89; RESP 17; TEMP 98.4; O2SAT 99
[2022-11-23 14:23] VITALS: BP 130/84
[2022-11-23] MEDS ORDERED: ZOFR4T PO (15:29)
[2022-11-23] MEDS ORDERED: CHOL1CAP47 PO (15:29)
[2022-11-23] MEDS ORDERED: AMLO1TAB23 PO (15:29)
[2022-11-23] MEDS ORDERED: HYDR-4902 PO (15:29)
[2022-11-23] MEDS ORDERED: DAKI0.12 EX (15:29)
[2022-11-23] MEDS ORDERED: BLOO1KIT60 XX (15:31)
== END 2022-11-23 18:04 | disposition home health service (06) | DRG 305 ==
LOC: ER 19:09 → OVERFLOW 11-10 06:35 → WEST WING 11-10 13:29
PROVIDERS: ADMIT Internal Medicine Geriatric Medicine; ATTEND Internal Medicine Geriatric Medicine
PROC: 0Y6M0ZF Detachment at Right Foot, Partial 5th Ray, Open Approach (ICD-10-PCS; principal; 2022-11-13 07:33)
PROC: 05HB33Z Insertion of Infusion Device into Right Basilic Vein, Percutaneous Approach (ICD-10-PCS; 2022-11-16)
PROC: B54MZZA Ultrasonography of Right Upper Extremity Veins, Guidance (ICD-10-PCS; 2022-11-16)
PROC: 30233N1 Transfusion of Nonautologous Red Blood Cells into Peripheral Vein, Percutaneous Approach (ICD-10-PCS; 2022-11-17)
PROC: 05HA33Z Insertion of Infusion Device into Left Brachial Vein, Percutaneous Approach (ICD-10-PCS; 2022-11-23)
PROC: B54NZZA Ultrasonography of Left Upper Extremity Veins, Guidance (ICD-10-PCS; 2022-11-23)
DX: E11.69 Type 2 diabetes mellitus with other specified complication (principal); N17.0 Acute kidney failure with tubular necrosis; M86.171 Other acute osteomyelitis, right ankle and foot; E83.51 Hypocalcemia; E87.1 Hypo-osmolality and hyponatremia; D63.1 Anemia in chronic kidney disease; E11.22 Type 2 diabetes mellitus with diabetic chronic kidney disease; L03.115 Cellulitis of right lower limb; E11.621 Type 2 diabetes mellitus with foot ulcer; D75.839 Thrombocytosis, unspecified; N39.0 Urinary tract infection, site not specified; E11.65 Type 2 diabetes mellitus with hyperglycemia; E86.9 Volume depletion, unspecified; E83.42 Hypomagnesemia; I12.9 Hypertensive chronic kidney disease with stage 1 through stage 4 chronic kidney disease, or unspecified chronic kidney disease; N18.9 Chronic kidney disease, unspecified; E11.628 Type 2 diabetes mellitus with other skin complications; R80.9 Proteinuria, unspecified; B95.1 Streptococcus, group B, as the cause of diseases classified elsewhere; E87.6 Hypokalemia; B95.2 Enterococcus as the cause of diseases classified elsewhere
CPT/HCPCS: 36415; 73700; 73718; 76775; 76856; 80048; 80053; 80061; 80202; 80307; 81001; 82306; 82550; 82570; 82607; 82728; 82962; 83036; 83540; 83550; 83605; 83690; 83735; 83880; 83970; 84100; 84156; 84443; 84484; 85007; 85025; 85027; 85045; 85610; 85652; 85730; 86038; 86141; 86160; 86850; 86900; 86901; 86920; 87040; 87070; 87075; 87077; 87086; 87186; 87205; 93925; 97110; 97116; 97163; 97530; G0378; J0171; J0690; J1100; J1815; J2001; J2250; J2405; J2543; J2704; J3490; J7060; Q0162

== ENCOUNTER 2022-12-27 23:28 | Emergency (ER) | payer OTHER ==
[~2022-12-27] VITALS: Ht 167.6 cm; Wt 65.0 kg
[~2022-12-27 23:28] MED LIST changes: +BLOO1KIT60 XX; +CHOL1CAP47 PO; +DAKI0.12 EX; +HYDR-4902 PO; +ZOFR4T PO
[2022-12-28 00:24] LABS: Basophils # (auto) 0.1 10 ^3/uL (0-0.2); Basophils % (auto) 1.1 % (0.0-2.0); Eosinophils # (auto) 0.1 10 ^3/uL (0-0.8); Eosinophils % (auto) 1.5 % (0.0-7.0); Hematocrit 32.8 % (36.0-46.0); Hemoglobin 11.1 g/dL (12.2-16.2); Lymphocytes # (auto) 1.4 10 ^3/uL (0.4-5.4); Lymphocytes % (auto) 20.3 % (10.0-50.0); Mean Corpuscular Hgb Conc. 33.9 g/dL (32.0-36.0); Mean Corpuscular Volume 88.6 fL (80.0-100.0); Monocytes # (auto) 0.3 10 ^3/uL (0-1.3); Monocytes % (auto) 4.6 % (0.0-12.0); Neutrophils # (auto) 5.1 10 ^3/uL (1.6-8.6); Neutrophils % (auto) 72.5 % (37.0-80.0); Red Cell Distribution Width 15.9 % (11.8-14.3); White Blood Cell 7.1 10^3/uL (4.4-10.8)
[2022-12-28 00:43] LABS: Alanine Aminotransferase 15 U/L (7-40); Albumin 4.3 g/dL (3.2-4.8); Alkaline Phosphatase 66 U/L (46-116); Anion Gap 14 (5-15); Aspartate Aminotransferase 13 U/L (13-40); BUN/Creatinine Ratio 11.4 (10.0-20.0); Blood Urea Nitrogen 26 mg/dL (9-23); Calcium 9.1 mg/dL (8.7-10.4); Carbon Dioxide 16 mmol/L (20-30); Chloride 108 mmol/L (98-107); Glucose 237 mg/dL (74-106); Lipase 34 U/L (12-53); Potassium 3.6 mmol/L (3.5-5.1); Sodium 138 mmol/L (136-145)
[2022-12-28 00:44] LABS: Bilirubin, Total 0.5 mg/dL (0.2-1.0); Total Protein 7.9 g/dL (5.7-8.2)
[2022-12-28] MEDS ORDERED: PANTOPRAZOLE 40mg/50ML NS AE 50 ML IV ONE (01:45)
[2022-12-28] MEDS ORDERED: OCTREOTIDE ACETATE 100 MCG in SODIUM CHL 0.9% 50 ML IV ONE (01:45)
[2022-12-28] MEDS ORDERED: PANTOPRAZOLE 80 MG in SODIUM CHL 0.9% 100 ML IV ONE (01:45)
[2022-12-28] MEDS ORDERED: OCTREOTIDE ACETATE 500 MCG in SODIUM CHL 0.9% 99 ML IV SCH (01:45)
[2022-12-28] MEDS ORDERED: MORPHINE SULFATE INJ 2 MG/ml SYRG IV ONE (01:45)
[2022-12-28] MEDS ORDERED: ONDANSETRON HCL 4 MG/2 ML VIAL IV ONE (01:45)
[2022-12-28 02:24] VITALS: TEMP 97.9; O2SAT 100
[2022-12-28] MEDS ORDERED: PANTOPRAZOLE 40 MG/10 ML VIAL INJ IV ONE (03:27)
[2022-12-28] MEDS ORDERED: FAMO20TA10 PO (04:56)
[2022-12-28] MEDS ORDERED: ACET-1304 PO (04:56)
[2022-12-28 05:00] VITALS: BP 119/70; PULSE 70; RESP 16
== END 2022-12-28 05:52 | disposition home or self-care (01) ==
LOC: EDBD 23:28 → ER 23:28
DX: K52.9 Noninfective gastroenteritis and colitis, unspecified (principal); E11.9 Type 2 diabetes mellitus without complications; Z86.2 Personal history of diseases of the blood and blood-forming organs and certain disorders involving the immune mechanism; Z79.899 Other long term (current) drug therapy
CPT/HCPCS: 36415; 74176; 80053; 83690; 84484; 85025; 96365; 96366; 96375; 99285; C9113; J2270; J2405

== ENCOUNTER 2024-11-04 11:58 | Inpatient (IN) | payer MEDICAID, OTHER ==
[~2024-11-04] VITALS: Ht 167.6 cm; Wt 73.8 kg
[~2024-11-04 11:58] MED LIST changes: +ACET-1304 PO; +FAMO20TA10 PO; -HYDR-4296 PO; +HYDR25TA88 PO
--- NOTE | 2024-11-04 13:21 | ED.PDOC ---
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 Patient states she has been experiencing wound to RT foot for the past 3 days, with pus/blood discharge, foul odor. She changed dressing last night, this morning was soaked with discharge. Denies fever, chills, chest pain, shortness of breath, dizziness, headache. No other symptoms or modifying factors present at this time. Initial Vitals BP: 130/79 HR: 103 RR: 18 O2 Sat: 98% Temp: 98.5 F Past Medical history: DM, HTN, HLD, anemia, Charcot foot, CKD Past Surgical history: RT 5th toe amputation Medications: Denies Social History: Denies smoking, ETOH, and drug use. Allergies: NKDA FELIXl: RIGHT ANKLE ACUTE AND CHRONIC WOUND HPI: Poor Historian. Past Medical History: Past Surgical History: REVIEW OF SYSTEMS: CONSTITUTIONAL: Denies acute: fever, diaphoresis, chills, generalized weakness. HEAD: Denies acute: headache, photophobia Eyes: Denies acute: Double vision, vision loss, eye pain, eye discharge. EARS: Denies acute: tinnitus, hearing loss, ear discharge, ear pain, THROAT: Denies acute: sore throat, swelling, difficulty swallowing , pain with swallowing, change in voice. NECK: Denies acute: neck pain, neck swelling, stiff neck. HEART: Denies acute : chest pain, palpitations, LUNGS: Denies acute: SOB, wheezing, cough, hemoptysis ABDOMEN: Denies acute: abdominal pain, Nausea, Vomiting, diarrhea, melena , hematemesis, hematochezia SKIN: Denies acute: rash, redness, lesions, itchiness. EXTREMITIES: Denies acute: calf pain, numbness, tingling, weakness, denies pain in extremity. Denies acute: Low back pain. Neuro: Denies acute: focal neurological deficit, motor or sensory focal neurological de ficit, tremors, seizure like activity, confusion, dizziness, change in mental status, loss of bowel or bladder function, cauda equina like symptoms. : Denies acute: dysuria, hematuria, flank pain, increase in urinary frequency. PSYCH: Denies acute: hallucination, suicidal ideation, homicidal ideation. FEMALE: Denies acute: abnormal vaginal bleeding, foul odor, unusual discharge. PHYSICAL EXAM: General: --------acute distress, awake and alert. Head: normocephalic, atraumatic. Neck: supple, trachea is midline, no swelling. Throat: Normal phonation. Eyes:, no erythema, no purulent discharge, no proptosis, no icterus. Heart: regular rate, regular rhythm, no significant murmur appreciated. Lungs: no apparent respiratory distress, Able to speak in full sentences. No wheezing, no rhonchi, no crackles. No stridors Clear to auscultation bilaterally. Abdomen: non tender to palpation, non distended, soft, no guarding, no rebound, + bowel sounds. Neuro: Awake, Alert, oriented to name, self, situation, follows commands GCS=15. Speech is normal. Skin: no petechia, no purpura, no cyanosis, non-pale, not jaundice. Evaluation of the affected area of complaint right ankle foot: Wound dressing in place. The foot was undressed. There is noted to chronic wounds one on the right lateral malleoli and one at the right lateral aspect of the distal foot at the plantar. There is associated erythema and redness and tenderness to palpation. Patient is neurovascularly intact in the affected extremity. Pedal pulses palpable. There is noted deformity of the right foot and some previous amputations. Makes eye contact. moves all four extremities. Face: no apparent facial droop. Pedal pulses are palpable. ED COURSE: DISCLAIMER: This medical document was created using an electronic medical record system with voice recognition software and computerized dictation system. Although this document has been carefully reviewed, there might still be some phonetic and typographical errors. Occasional wrong-word or "sound-alike" substitutions may have occurred due to the inherent limitations of voice recognition software. These areas are purely typographical due to imperfections of the software pro grams and do not reflect any compromise in the patient's medical care. Please read the chart carefully and recognize, using context, where these substitutions have occurred. Chief Complaint: Wound Check Time Seen by MD: 13:00 Reviewed Notes: Medications, Allergies Allergies: Coded Allergies: NO KNOWN ALLERGIES (Unverified , 11/26/20) Home Meds Active Scripts Famotidine (PEPCID TABLET) 20 Mg Tb, 1 TAB PO BID for 20 Days, #40 TAB 5 Refills Prov:RIZWANAHIRAMIRANDA DO 12/28/22 Acetaminophen (Tylenol Extra Strength) 500 Mg Tab, 500 MG PO QIDPRN for 10 Days, #40 TAB Prov:MIRANDA WILSON DO 12/28/22 Blood Glucose Monitoring Suppl (D-Care Glucometer Kit/Glu W/Device) 1 Kit Kit, KIT XX, #1 Prov:JAMARCUS DEL CASTILLO MD 11/23/22 Sodium Hypochlorite (Dakins Solution Quarter S) 0.125 % Maddie, 0.125 % EX BID, #473 ML Prov:JAMARCUS DEL CASTILLO MD 11/23/22 Cholecalciferol (Vitamin D3 Super Strength) 2,000 Unit Cap, 2000 UNIT PO DAILY for 30 Days, #30 CAP Prov:JAMARCUS DEL CASTILLO MD 11/23/22 Amlodipine Besylate (Amlodipine Besylate) 10 Mg Tab, 1 TAB PO DAILY, #30 TAB 5 R efills Prov:JAMARCUS DEL CASTILLO MD 11/23/22 Ondansetron Odt 4MG Tab (ZOFRAN PO) 4 Mg Tb, 4 MG PO Q6HP PRN, #30 TAB ODT TAB-DISSOLVE IN MOUTH, THEN SWALLOW Prov:JAMARCUS DEL CASTILLO MD 11/23/22 Hydrocodone-Acetaminophen (Hydrocodone Bitartrate/AC 5-325 mg) 1 Tab Tab, 1 TAB PO Q6HP PRN, #30 TAB Prov:JAMARCUS DEL CASTILLO MD 11/23/22 Nystatin (Mycostatin) 1 Applic Ap, 1 APPLIC TOP BID, #14 APPLIC Nystatin powder apply to lower abd area above groin for bid x 7 days Prov:TIMMY MATHIAS MD 12/05/20 Amlodipine Besylate (Amlodipine Besylate) 10 Mg Tab, 1 TAB PO DAILY, #30 TAB 1 Refill Prov:TIMMY MATHIAS MD 12/05/20 Reported Medications Hydralazine Hcl (Hydralazine Hcl) 25 Mg Tab, 25 MG PO TID for 30 Days, MG 12/01/20 Ferrous Sulfate (Ferrous Sulfate) 325 Mg Tab, 325 MG PO DAILY for 30 Days, MG 12/01/20 Information Source: Patient Mode of Arrival: Wheelchair Location: Right Extremity Location: Foot Timing: Days Prehospital treatment: None Severity: Moderate Able to Move Extremity: Yes Pain: Moderate Mechanism: Spontaneous Circumstances: Preceding Wound Onset of Symptoms: Spontaneous Symptoms: Erythema DVT Risk Factors: NONE Associated signs and symptoms: Foot pain Past Medical History PAST MEDICAL HISTORY: Anemia, CKF, DM, High Lipids, HTN Surgical History (Other): RT 5th toe amputation IRIDOLOGIST History: No Pertinent IRIDOLOGIST History Family History Family History: Reviewed,noncontributory to illness Social History Smoker: Non-Smoker Alcohol: Denies ETOH Use Drugs: Denies Drug Use Lives In: Home Was a procedure done? Was a procedure done?: No Differential Diagnosis EXT Differential Diagnosis: Cellulitis, CHF, Deep Vein Thrombosis, Compartment Syndrome, Fracture, Sprain, Dislocation, Laceration, Gout, DJD, Myocardial I nfarction, Contusion, Strain, Rheumatoid, Septic (Necrotizing fasciitis), Neurovascular injury, Arthritis, Bursitis, Other X-Ray, Labs, Meds, VS Vital Signs Date Time Temp Pulse Resp B/P (MAP) Pulse Ox O2 Delivery O2 Flow Rate FiO2 11/04/24 12:00 98.5 103 18 130/79 98 98.5 Lab Test 11/04/24 13:38 11/04/24 13:23 Range/Units White Blood Count 7.9 4.4-10.8 10^3/uL Red Blood Count 3.48 L 4.0-5.20 10^6/uL Hemoglobin 9.7 L 12.2-16.2 g/dL Hematocrit 29.8 L 36.0-46.0 % Mean Corpuscular Volume 85.7 80.0-100.0 fL Mean Corpuscular Hemoglobin 27.9 L 28.0-32.0 pg Mean Corpuscular Hemoglobin Concent 32.5 32.0-36.0 g/dL Red Cell Distribution Width 15.2 H 11.8-14.3 % Platelet Count 401 140-450 10^3/uL Mean Platelet Volume 7.6 6.9-10.8 fL Neutrophils (%) (Auto) 82.3 H 37.0-80.0 % Lymphocytes (%) (Auto) 7.6 L 10.0-50.0 % Monocytes (%) (Auto) 9.1 0.0-12.0 % Eosinophils (%) (Auto) 0.2 0.0-7.0 % Basophils (%) (Auto) 0.8 0.0-2.0 % Neutrophils # (Auto) 6.5 1.6-8.6 10 ^3/uL Lymphocytes # (Auto) 0.6 0.4-5.4 10 ^3/uL Monocytes # (Auto) 0.7 0-1.3 10 ^3/uL Eosinophils # (Auto) 0 0-0.8 10 ^3/uL Basophils # (Auto) 0.1 0-0.2 10 ^3/uL Nucleated Red Blood Cells 0.0 % Erythrocyte Sedimentation Rate 103 H 0-20 mm/hr Prothrombin Time 11.6 9.3-11.8 sec Prothrombin Time INR 1.11 0.9-1.15 Activated Partial Thromboplast Time 34.5 24.5-34.5 SEC Sodium Level 139 136-145 mmol/L Potassium Level 4.3 3.5-5.1 mmol/L Chloride Level 109 H 98-107 mmol/L Carbon Dioxide Level 14 L 20-31 mmol/L Anion Gap 16 H 5-15 Blood Urea Nitrogen 44 H 9-23 mg/dL Creatinine 4.25 H 0.550-1.02 mg/dL Glomerular Filtration Rate Calc 13 >90 mL/min BUN/Creatinine Ratio 10.4 10.0-20.0 Serum Glucose 196 H 74-106 mg/dL Hemoglobin A1c 7.0 H <5.7 % A1C Serum Osmolality 318 H 278-298 mOsm/kg Lactic Acid Level 0.6 0.4-2.0 mmol/L Calcium Level 8.5 L 8.7-10.4 mg/dL Iron Level 14 L 50-170 ug/dL Total Iron Binding Capacity 190 L 250-425 ug/dL Percent Iron Saturation 7.4 L 15-50 % Ferritin 219.8 10-291 ng/mL Total Bilirubin 0.2 0.2-1.0 mg/dL Aspartate Amino Transferase (AST) < 8 L 13-40 U/L Alanine Aminotransferase (ALT) < 9 7-40 U/L Alkaline Phosphatase 123 H 46-116 U/L C-Reactive Protein High Sensitivity 13.78 H <1.0 mg/dL Total Protein 8.0 5.7-8.2 g/dL Albumin 4.1 3.2-4.8 g/dL Vitamin B12 Level 397 211-911 pg/mL Beta-Hydroxybutyric Acid 0.717 H < 0.4 mmol/L Urine Color Light-yellow Yellow Urine Clarity Clear Clear Urine pH 5.5 5.0-9.0 Urine Specific Corinne 1.012 1.001-1.035 Urine Protein 1+ H Negative Urine Ketones Negative Negative Urine Blood 1+ H Negative /uL Urine Nitrite Negative Negative Urine Bilirubin Negative Negative Urine Urobilinogen Normal Negative mg/dL Urine Leukocyte Esterase Negative Negative /uL Urine RBC <1 0 - 4 /hpf Urine Microscopic WBC 2 0-5 /HPF Urine Squamous Epithelial Cells Few <5 /hpf Urine Bacteria Few H None Seen /hpf Urine Osmolality 370 mOsm/kg Urine Creatinine 91.78 30.0-125.0 mg/dL Urine Protein/Creatinine Ratio 1.40 Urine Sodium 54 40-220 mmol/L Urine Glucose 4+ H Normal mg/dL Urine Total Protein 128.1 H 1-14 mg/dL Urine Opiates Screen Neg NEGATIVE Urine Fentanyl Screen Neg NEGATIVE Urine Barbiturates Screen Neg NEGATIVE Urine Phencyclidine Screen Neg NEGATIVE Urine Amphetamines Screen Neg NEGATIVE Urine Benzodiazepines Screen Neg NEGATIVE Urine Cocaine Screen Neg NEGATIVE Urine Cannabinoids Screen Neg NEGATIVE Microbiology Date/Time Source Procedure Growth Status 11/04/24 14:58 Foot Gram Stain - Final Complete 11/04/24 14:58 Wound Culture - Final Staphylococcus aureus Acinetobacter baumannii Streptococcus Group B Complete 11/04/24 13:38 Blood Blood Culture - Final NO GROWTH AFTER 5 DAYS OF INCUBATION. Complete 11/04/24 13:25 Blood Blood Culture - Final NO GROWTH AFTER 5 DAYS OF INCUBATION. Complete [facility] [id number] [facility] [address] Ph: [phone] DIAGNOSTIC IMAGING Diagnostic Imaging Report : [id number] Signed PATIENT: LAINE DACOSTA ACCT: [id number] UNIT: [id number] : 1980 LOC: ER ROOM / BED: / AGE / SEX: 43 / F ADM STATUS: REG ER SERVICE 1254 ORDERING PHYSICIAN: SANDY LEVI DO PROCEDURE(s): RANK2 - R ANKLE 2 VIEW XRAY REASON: wound ORDER NUMBER(s): [id number], ACCESSION NUMBER(s): [id number] EXAM: XY R ANKLE 2 VIEW XRAY CLINICAL INDICATION: wound TECHNIQUE: XY R ANKLE 2 VIEW XRAY Comparison: CT CT R FOOT WO CONTRAST on DOS: 11/09/22, MRI R ANKLE WO CONTRAST on DOS: 11/30/20, CT R FOOT WO CONTRAST on DOS: 11/26/20 FINDINGS/IMPRESSION: Soft tissue swelling with foci of air chronic deformity of the distal tibia and fibula with dislocation with respect to the talus. Gas-forming infection can not be excluded. Osteomyelitis not excluded. MRI recommended. ATED BY: BOOGIE ANDERSON MD DICTATED DATE/TIME: 11/04/24 1355 SIGNED BY: BOOGIE ANDERSON MD SIGNED DATE/TIME: 11/04/24 1355 CC: Time of 1ST Reevaluation: 13:30 Reevaluation 1ST: Unchanged Patient Education/Counseling: Diagnosis, Treatment Family Education/Counseling: No Family Present Comments MDM: patient presented with the above HPI.--diabetic foot ulcer----workup was initiated. patient was found with the above mentioned diagnosis. the following medications were ordered: please refer to order lists of meds and tests obtained by myself Dr. Levi. Patient ED course and VS have been stabilized. Patient has been reassessed in the ED and remained in a stable condition. Pertinent incidental findings were discussed with the patient and/or family. Patient/family voices understanding and is agreeable with plan. Patient has been observed in the ED adequate length of time to insure imp rovement/stability. Escalation of care considered: Consideration of escalation to observation or admission Antibiotics initiated. Patient was ADMITTED to the medicine team for further evaluation and treatment of their presentation. All the reports of any imaging studies that were ordered by myself were reviewed by myself. Departure 1 Departure Time of Disposition: 13:56 Impression: Primary Impression: Diabetic foot ulcer Additional Impressions: Osteomyelitis of right leg Anemia, unspecified Disposition: ADMITTED INPATIENT Admit to: Tele Condition: Guarded Discharged With: Self Critical Care Note Critical Care Time?: Yes (35 min-critical care time only) I personally scribed for SANDY LEVI DO ([email or web address]) on 11/04/24 at 13:21. Electronically submitted by Cristiana Armenta ([email or web address]). I personally scribed for SANDY LEVI DO ([email or web address]) on 11/04/24 at 14:00. Electronically submitted by Cristiana Armenta ([email or web address]). SANDY LEVI DO Nov 04, 2024 13:21
[2024-11-04 13:53] LABS: Hematocrit 29.8 % (36.0-46.0); Hemoglobin 9.7 g/dL (12.2-16.2); Mean Corpuscular Hemoglobin 27.9 pg (28.0-32.0); Mean Corpuscular Volume 85.7 fL (80.0-100.0); Nucleated Red Blood Cells % 0.0 %
--- NOTE | 2024-11-04 13:58 | DVH ---
EXAM: XY R ANKLE 2 VIEW XRAY CLINICAL INDICATION: wound TECHNIQUE: XY R ANKLE 2 VIEW XRAY Comparison: CT CT R FOOT WO CONTRAST on DOS: 11/09/22, MRI R ANKLE WO CONTRAST on DOS: 11/30/20, CT R FOOT WO CONTRAST on DOS: 11/26/20 FINDINGS/IMPRESSION: Soft tissue swelling with foci of air chronic deformity of the distal tibia and fibula with dislocati on with respect to the talus. Gas-forming infection can not be excluded. Osteomyelitis not excluded. MRI recommended.
[2024-11-04] MEDS ORDERED: PIPERACILLIN-TAZOB 3.375GM 100 ML IV ONE (14:00)
[2024-11-04 14:06] LABS: Albumin 4.1 g/dL (3.2-4.8); Anion Gap 16 (5-15); BUN/Creatinine Ratio 10.4 (10.0-20.0); Potassium 4.3 mmol/L (3.5-5.1); Sodium 139 mmol/L (136-145); Total Protein 8.0 g/dL (5.7-8.2)
[2024-11-04 14:08] LABS: Alanine Aminotransferase < 9 U/L (7-40); Alkaline Phosphatase 123 U/L (46-116); Bilirubin, Total 0.2 mg/dL (0.2-1.0); Blood Urea Nitrogen 44 mg/dL (9-23); Calcium 8.5 mg/dL (8.7-10.4); Carbon Dioxide 14 mmol/L (20-31); Chloride 109 mmol/L (98-107); Glucose 196 mg/dL (74-106)
[2024-11-04 14:21] LABS: Urine Protein, UAD 1+ (Negative)
[2024-11-04] MEDS ORDERED: HYDROcodone-ACET 5/325MG TAB PO PRN (15:00)
[2024-11-04] MEDS ORDERED: ACETAMINOPHEN 325 MG TAB PO PRN (15:00)
[2024-11-04] MEDS ORDERED: CEFEPIME 1GM/50ML 50 ML IV ONE (15:45)
[2024-11-04] MEDS ORDERED: DEXTROSE (50%) 50ML SYRG IV PRN (15:45)
[2024-11-04] MEDS ORDERED: VANCOMYCIN PER PHARMACY 0 MG IV SCH (15:45)
[2024-11-04] MEDS: VANCOMYCIN 1GM/250ML KIT 250 ML IV STA (16:17)
[2024-11-04 16:18] LABS: INR 1.11 (0.9-1.15); Iron 14.0 ug/dL (50-170); Partial Thromboplastin Time 34.5 SEC (24.5-34.5); Prothrombin Time 11.6 sec (9.3-11.8); Total Iron Binding Capacity 190.0 ug/dL (250-425)
[2024-11-04] MEDS: ONDANSETRON HCL 4 MG/2 ML VIAL IV PRN (16:18)
[2024-11-04] MEDS: MORPHINE SULFATE INJ 2 MG/ml SYRG IV PRN (16:22)
--- NOTE | 2024-11-04 16:29 | DVHHPRES ---
History of Present Illness Resident Creating Document: LAURIE CONTRERSA RESIDENT Reason for Visit: Wound check History of Present Illness This is a 43-year-old female who came into the ED with chief complain of right foot pain, chills and fevers. PMH: Type 2 diabetes, hypertension, CKD, hyperlipidemia, anemia, chocolate food. PSH: Right 5th toe amputation. Three C sections. SH: Denies smoking, alcohol abuse or illicit drug use. Lives with family. FH: Noncontributory. Home medications: Famotidine, amlodipine, hydralazine, insulin lispro and insulin Basaglar, vitamin-D, ferrous sulfate, [place], Zofran, nystatin Allergies: None Patient states that for the last three days she has been experiencing worsening right foot pain associated with post and blood discharge and foul odor. She also states experiencing chills, fevers, nausea and vomiting. She is still feeling weak. She currently denies any chest pain, shortness of breath, dizziness, headache. On arrival to the ED, patient had a right ankle x-ray which demonstrated soft tissue swelling, distal tibia and fibula dislocation. Past Medical History See HPI. Past Surgical History See HPI. Family History See HPI. Past Social History See HPI. Review of Systems Constitutional: Yes: Fever, Chills, Weakness; No: Sweats, Malaise, Other Eyes: No: Pain, Vision change, Conjunctivae inflammation, Eyelid inflammation, Other, Redness ENT: No: Ear pain, Ear discharge, Nose pain, Nose discharge, Nose congestion, Mouth pain, Mouth swelling, Throat pain, Throat swelling, Other Respiratory: No: Cough, Dry, Shortness of breath, SOB with excertion, Wheezing, Hemoptysis, Pleuritic Pain, Sputum, Wheezing, Other Cardiovascular: No: Chest Pain, Palpitations, Orthopnea, Paroxysmal Noc. Dyspnea, Edema, Lt Headedness, Other Gastrointestinal: No: Nausea, Vomiting, Abdominal Pain, Diarrhea, Constipation, Melena, Hematochezia, Other Genitourinary: No Dysuria, No Frequency, No Incontinence, No Hematuria, No Retention, No Other Musculoskeletal: foot pain; No: other, neck pain, shoulder pain, arm pain, back pain, hand pain, leg pain Skin: Lesions; No: Rash, Jaundice, Bruising, Other Neurological: No: Weakness, Numbness, Incoordination, Change in speech, Conf usion, Seizures, Other Allergies: Coded Allergies: NO KNOWN ALLERGIES (Unverified , 11/26/20) Medications Current Medications Medications Dose Ordered Sig/Margarita Route Start Time Stop Time Status Last Admin Dose Admin Sodium Chloride 10 ml Q8HR IV 11/04/24 22:00 Acetaminophen 325 mg Q4HP PRN PO 11/04/24 15:00 Acetaminophen/ Hydrocodone Bitart 1 tab Q4HP PRN PO 11/04/24 15:00 Ondansetron HCl 4 mg Q4HP PRN IV 11/04/24 15:00 Morphine Sulfate 2 mg Q4HPRN PRN IV 11/04/24 15:00 Cefepime HCl 50 ml @ 12.5 mls/hr DAILY IV 11/05/24 10:00 UNV Vancomycin HCl 0 ml @ 0 mls/hr UD IV 11/04/24 15:45 Diagnostic Test (Pha) 1 strip ACHS 11/04/24 17:00 Insulin Human Regular ACHS SC 11/04/24 17:00 Dextrose 50 ml UD PRN IV 11/04/24 15:45 Famotidine 20 mg BID PO 11/04/24 22:00 UNV Patient Own Medication 1 tab DAILY PO 11/05/24 10:00 UNV Amlodipine Besylate 10 mg DAILY PO 11/05/24 10:00 Exam Vital Signs Vital Signs Date Time Temp Pulse Resp B/P (MAP) Pulse Ox O2 Delivery O2 Flow Rate FiO2 11/04/24 15:44 105 18 100 Room Air 11/04/24 15:44 97.9 146/84 (104) 97.9 Exam Physical examination as below: General: Awake, alert, in mild distress due to foot pain HEENT: Head is normocephalic and atraumatic. Pupils are equal, round, and reactive to light. Extraocular muscles are intact. No nasal discharge. No facial trauma. Intraoral exam shows moist mucous membranes with no tonsillar enlargement or exudate. Neck: Supple with no cervical lymphadenopathy. Heart: Regular rate without murmur, rub, or gallop. Lungs: Equal breath sounds bilaterally with no wheezing, rales, or rhonchi. There is no chest wall tenderness or instability. Abdomen: No external sign of injury. Bowel sounds are present. Abdomen is soft, nontender. No rebound, no guarding, no rigidity. There are no palpable masses. There is no flank pain on exam. Extremities: Strong peripheral pulses. Feet appear deformed with Charcot features, right worse than left. There is a large round wound on plantar area of right foot, draining yellow foul-smelling fluid, there is tenderness to palpation of the right foot, mild swelling, no crepitus, no other associated rash. Skin: No rash. Neurologic: Cranial nerves II-XII intact without motor, sensory, or cerebellar deficit, no asterixis. Labs/Xrays Labs Test 11/04/24 13:38 11/04/24 13:23 Range/Units White Blood Count 7.9 4.4-10.8 10^3/uL Red Blood Count 3.48 L 4.0-5.20 10^6/uL Hemoglobin 9.7 L 12.2-16.2 g/dL Hematocrit 29.8 L 36.0-46.0 % Mean Corpuscular Volume 85.7 80.0-100.0 fL Mean Corpuscular Hemoglobin 27.9 L 28.0-32.0 pg Mean Corpuscular Hemoglobin Concent 32.5 32.0-36.0 g/dL Red Cell Distribution Width 15.2 H 11.8-14.3 % Platelet Count 401 140-450 10^3/uL Mean Platelet Volume 7.6 6.9-10.8 fL Neutrophils (%) (Auto) 82.3 H 37.0-80.0 % Lymphocytes (%) (Auto) 7.6 L 10.0-50.0 % Monocytes (%) (Auto) 9.1 0.0-12.0 % Eosinophils (%) (Auto) 0.2 0.0-7.0 % Basophils (%) (Auto) 0.8 0.0-2.0 % Neutrophils # (Auto) 6.5 1.6-8.6 10 ^3/uL Lymphocytes # (Auto) 0.6 0.4-5.4 10 ^3/uL Monocytes # (Auto) 0.7 0-1.3 10 ^3/uL Eosinophils # (Auto) 0 0-0.8 10 ^3/uL Basophils # (Auto) 0.1 0-0.2 10 ^3/uL Nucleated Red Blood Cells 0.0 % Erythrocyte Sedimentation Rate 103 H 0-20 mm/hr Sodium Level 139 136-145 mmol/L Potassium Level 4.3 3.5-5.1 mmol/L Chloride Level 109 H 98-107 mmol/L Carbon Dioxide Level 14 L 20-31 mmol/L Anion Gap 16 H 5-15 Blood Urea Nitrogen 44 H 9-23 mg/dL Creatinine 4.25 H 0.550-1.02 mg/dL Glomerular Filtration Rate Calc 13 >90 mL/min BUN/Creatinine Ratio 10.4 10.0-20.0 Serum Glucose 196 H 74-106 mg/dL Lactic Acid Level 0.6 0.4-2.0 mmol/L Calcium Level 8.5 L 8.7-10.4 mg/dL Total Bilirubin 0.2 0.2-1.0 mg/dL Aspartate Amino Transferase (AST) < 8 L 13-40 U/L Alanine Aminotransferase (ALT) < 9 7-40 U/L Alkaline Phosphatase 123 H 46-116 U/L C-Reactive Protein High Sensitivity 13.78 H <1.0 mg/dL Total Protein 8.0 5.7-8.2 g/dL Albumin 4.1 3.2-4.8 g/dL Urine Color Light-yellow Yellow Urine Clarity Clear Clear Urine pH 5.5 5.0-9.0 Urine Specific [place] 1.012 1.001-1.035 Urine Protein 1+ H Negative Urine Ketones Negative Negative Urine Blood 1+ H Negative /uL Urine Nitrite Negative Negative Urine Bilirubin Negative Negative Urine Urobilinogen Normal Negative mg/dL Urine Leukocyte Esterase Negative Negative /uL Urine RBC <1 0 - 4 /hpf Urine Microscopic WBC 2 0-5 /HPF Urine Squamous Epithelial Cells Few <5 /hpf Urine Bacteria Few H None Seen /hpf Urine Glucose 4+ H Normal mg/dL SEPSIS Sepsis Screen Date sepsis recognized/suspect: Nov 04, 2024 Time Sepsis recognized/suspect: 1201 Recent Procedure: No On Antibiotic Therapy: No Respiratory Rate >20: No Heart Rate >90: Yes Temp<36 C (96.8 F) or >38.3 C: No SBP <90 or MAP <65 mmHG: No New Acute Mental Status Change: No Is the patient on CPAP, BIPAP,: No Physician Orders Cake Icer (11/04/24 ) Blood Culture (11/04/24 12:54) R Ankle 2 View Xray (11/04/24 12:54) Admit (11/04/24 14:58) Allergies (11/04/24 14:58) Code Status (11/04/24 14:58) Renal Standard(2gna,3gk,Lopho) (11/04/24 Dinner) Sodium Chloride Lock (Saline Lock Ns) (11/04/24 22:00) Acetaminophen Tablet (Tylenol Tablet) (11/04/24 15:00) Hydrocodone-Acet 5/325mg Tab ([place] 5/32 (11/04/24 15:00) Ondansetron Hcl (Zofran) (11/04/24 15:00) Complete Blood Count (11/05/24 04:00) Comprehensive Metabolic Panel (11/05/24 04:00) Condition: Fair (11/04/24 14:58) Morphine Sulfate Injection (11/04/24 15:00) Notify Of Changes From Base (11/04/24 14:58) Wound Culture W/ Gs (11/04/24 14:58) * Wound Consult (11/04/24 ) Mri R Foot Wo Contrast (11/04/24 14:58) Cefepime 1gm/50ml (Maxipime 1gm/50ml) (11/05/24 10:00) Cefepime 1gm/50ml (Maxipime 1gm/50ml) (11/04/24 15:45) Vancomycin Per Pharmacy (11/04/24 15:45) Mrsa Screen (11/04/24 15:36) Lactated Ringer's (11/04/24 15:45) Osmolality, Serum (11/04/24 15:36) Beta-Hydroxybutyrate (11/04/24 15:36) Iron Panel (11/04/24 15:36) Ferritin (11/04/24 15:36) PTPTT (11/04/24 15:36) Urine Sodium (11/04/24 15:36) Urine Creatinine (11/04/24 15:36) Urine Protein/Creatinine Ratio (11/04/24 ) Kidney (11/04/24 15:36) Hemoglobin A1c (11/04/24 15:36) Lactated Ringer's (11/04/24 15:45) Drug Screen (11/04/24 15:36) Glucose Blood (Accu-Chek Comfort Curve T (11/04/24 17:00) Insulin R (Human) (Insulin R) (11/04/24 17:00) Dextrose 50% Syringe (11/04/24 15:45) Famotidine Tablet (Pepcid Tablet) (11/04/24 22:00) Vancomycin,Random (11/05/24 04:00) Amlodipine Tablet (Norvasc Tablet) (11/05/24 10:00) Vital Signs Date Time Temp Pulse Resp B/P (MAP) Pulse Ox O2 Delivery O2 Flow Rate FiO2 11/04/24 15:44 105 18 100 Room Air 11/04/24 15:44 97.9 105 18 146/84 (104) 100 97.9 11/04/24 12:00 98.5 103 18 130/79 98 98.5 Laboratory Tests Test 11/04/24 13:38 Lactic Acid Level 0.6 mmol/L (0.4-2.0) White Blood Count 7.9 10^3/uL (4.4-10.8) Assessment/Plan Assessment/Plan #Right diabetic foot infection, rule out osteomyelitis Order right foot MRI Wound consult Ordered wound culture, blood culture, MRSA screen Ordered ESR, CRP, Start cefepime IV and vancomycin IV [place] p.r.n. IV fluids #Type 2 diabetes with hyperglycemia Consistent carb diet SSI mild Serum osmolality Beta hydroxybutyrate #SHELLEY on CKD due to VMN Renal diet IV fluids 500 mL bolus, continue with 100 mL/hour of LR Kidney ultrasound Urine sodium, urine creatinine, protein/creatinine clearance #Elevated anion gap metabolic acidosis, likely due to above #Hypertension, controlled Amlodipine 10 mg p.o. q.d. #Anemia normocytic normochromic Iron panel, ferritin, vitamin B12 Stool occult blood test #GERD Famotidine 20 mg p.o. b.i.d. Goals of care were discussed for over 33 minutes. Full code Case was discussed with Dr. Garcia Plan discussed with: Patient, Other (RN) My Orders Orders - LAURIE CONTRERAS RESIDENT Procedure Category Date Status Time Admit ADMIT 11/04/24 Transmitted 14:58 Allergies ZARIA 11/04/24 In Process 14:58 Code Status CODE 11/04/24 Transmitted 14:58 Renal DIET 11/04/24 Transmitted Standard(2gna,3gk,Lopho) Dinner Sodium Chloride Lock PHA 11/04/24 In Process (Saline Lock Ns) 22:00 Acetaminophen Tablet PHA 11/04/24 In Process (Tylenol Tablet) 15:00 Hydrocodone-Acet PHA 11/04/24 In Process 5/325mg Tab ([place] 15:00 Ondansetron Hcl PHA 11/04/24 In Process (Zofran) 15:00 Complete Blood Count LAB 11/05/24 Verified 04:00 Comprehensive LAB 11/05/24 Verified Metabolic Panel 04:00 Condition: Fair ZARIA 11/04/24 In Process 14:58 Morphine Sulfate PHA 11/04/24 In Process Injection 15:00 Notify Md Of Changes ZARIA 11/04/24 In Process From Base 14:58 Wound Culture W/ Gs JULIANN 11/04/24 In Process 14:58 * Wound Consult CONS 11/04/24 Transmitted Mri R Foot Wo Contrast MRI 11/04/24 Taken 14:58 Cefepime 1gm/50ml PHA 11/05/24 Logged (Maxipime 1gm/50ml) 10:00 Cefepime 1gm/50ml PHA 11/04/24 Logged (Maxipime 1gm/50ml) 15:45 Vancomycin Per PHA 11/04/24 In Process Pharmacy 15:45 Mrsa Screen JULIANN 11/04/24 Logged 15:36 Lactated Ringer's PHA 11/04/24 In Process 15:45 Osmolality, Serum LAB 11/04/24 In Process 15:36 Beta-Hydroxybutyrate LAB 11/04/24 In Process 15:36 Iron Panel LAB 11/04/24 In Process 15:36 Ferritin LAB 11/04/24 In Process 15:36 PTPTT LAB 11/04/24 In Process 15:36 Urine Sodium LAB 11/04/24 Logged 15:36 Urine Creatinine LAB 11/04/24 Logged 15:36 Urine LAB 11/04/24 Logged Protein/Creatinine Kidney US 11/04/24 Logged 15:36 Hemoglobin A1c LAB 11/04/24 In Process 15:36 Lactated Ringer's PHA 11/04/24 In Process 15:45 Drug Screen LAB 11/04/24 Logged 15:36 Glucose Blood PHA 11/04/24 In Process (Accu-Chek Comfort 17:00 Insulin R (Human) PHA 11/04/24 In Process (Insulin R) 17:00 Dextrose 50% Syringe PHA 11/04/24 In Process 15:45 Famotidine Tablet PHA 11/04/24 Logged (Pepcid Tablet) 22:00 Vancomycin,Random LAB 11/05/24 Verified 04:00 Amlodipine Tablet PHA 11/05/24 In Process (Norvasc Tablet) 10:00 LAURIE CONTRERAS RESIDENT Nov 04, 2024 16:29
[2024-11-04 16:55] VITALS: PULSE 102; RESP 18
[2024-11-04 17:00] VITALS: BP 152/94; PULSE 102; RESP 18; TEMP 98.3; O2SAT 100
--- NOTE | 2024-11-04 17:01 | DVH ---
INDICATION: Acute kidney injury TECHNIQUE: Multiple real-time sonographic images of the kidneys and bladder were obtained. COMPARISON: US PELVIC on DOS: 11/18/22, US KIDNEY on DOS: 11/10/22 FINDINGS: The right kidney measures 8.2 cm in length, which is normal in size. There is increased ech ogenicity of the right kidney. No hydronephrosis. The left kidney measures 8.3 cm in length, which is normal in size. There is increased echogenicity o f the left kidney. No hydronephrosis. No intraluminal mass is seen in the bladder. At the time of examination, the bladder volume is approx imately 196 cc. IMPRESSION: Increased echogenicity of both kidneys consistent with medical renal disease. No hydronephrosis of ei ther kidney.
[2024-11-04 17:19] LABS: Protein, Urine 128.1 mg/dL (1-14)
[2024-11-04 17:23] LABS: Amphetamine Screen, Urine Neg (NEGATIVE); Barbiturate Scree,Urine Neg (NEGATIVE); Benzodiazephine Screen, Urine Neg (NEGATIVE); Cannabinoid Screen, Urine Neg (NEGATIVE); Cocaine Screen, Urine Neg (NEGATIVE); Opiate Scree,Urine Neg (NEGATIVE); Phencyclidine Screen, Urine Neg (NEGATIVE)
--- NOTE | 2024-11-04 17:31 | DVH ---
EXAM: MRI MRI R FOOT WO CONTRAST INDICATION: osteomyelitis TECHNIQUE: Multiplanar, multisequence imaging of the right foot without contrast COMPARISON: XY R ANKLE 2 VIEW XRAY on DOS: 11/04/24 FINDINGS: BONES: Significant anatomic deformity of the tibiotalar articulation with chronic lateral dislocation of the calcaneus relative to the distal tibia. Abnormal signal likely compatible with osteomyelitis of the primarily medial aspect of the distal tibia corroborating prior radiographic findings. Stabili ty appearance extending along the intramedullary canal of the distal tibia which may reflect infectio n insinuating along the however version canals. Early suspected osteomyelitis of the central aspect o f the calcaneus. Abnormal signal likely compatible with osteomyelitis of theresidual medially displac ed talus. Severe midfoot charcot arthropathy. Abnormal intramedullary signal of the 4th metatarsal di aphysis. Correlate for sequelae of stress reaction. Significant osteomyelitis of the 5th metatarsal h ead and 5th digit phalanges which appear to be dislocated dorsally. The toes appear to be dorsally carroll bluxed of the metatarsophalangeal joints soft tissue ulceration of the plantar lateral aspect of the forefoot. Chronic suspected ulcer versus sequelae prior surgical of the plantar medial aspect of the forefoot in the area of residual partially resected 1st metatarsal MUSCLES: Severe fatty atrophy of the intrinsic musculature TENDONS: No definitive infectious tenosynovitis LIGAMENTS: Limited evaluation JOINT SPACES: No joint effusion. NEUROVASCULAR: Normal. OTHER: None. IMPRESSION: 1. Significant osteomyelitis of the distal tibia, talus, and calcaneus. 2. Significant osteomyelitis of the 5th metatarsal head and 5th digit phalanges. 3. Soft tissue ulceration of the plantar lateral aspect of the forefoot. 4. Chronic suspected ulcer versus sequelae prior surgical of the plantar medial aspect of the forefoo t in the area of residual partially resected 1st metatarsal. 5. Severe midfoot charcot arthropathy.
[2024-11-04] MEDS: LACTATED RINGER'S 1,000 ML IV ONE (18:30)
[2024-11-04] MEDS: ACCU-CHEK COMFORT CURVE STRIP VI SCH (18:39)
[2024-11-04] MEDS: InsuLIN REG 1unit/0.01ml Soln (100units/ml) SC SCH (19:09)
[2024-11-04 20:00] VITALS: PULSE 97; RESP 16; O2SAT 98
[2024-11-04] MEDS: CEFEPIME 0.5 GM in D5W 5% 50 ML IV ONE (20:39)
[2024-11-04 21:00] VITALS: BP 147/86; PULSE 100; RESP 18; TEMP 98.2; O2SAT 100
[2024-11-04] MEDS: FAMOTIDINE 20 MG TAB PO SCH (22:48)
[2024-11-04] MEDS: SODIUM CHLOR 0.9% PF (SALINE LOCK) 10ML VIAL/SYR IV SCH (22:55)
[2024-11-05 01:00] VITALS: BP 130/69; PULSE 97; RESP 16; TEMP 98.1; O2SAT 98
[2024-11-05] MEDS: LACTATED RINGER'S 1,000 ML IV ONE ×2 (02:39→09:37)
[2024-11-05 05:00] VITALS: BP 129/71; PULSE 90; RESP 18; TEMP 97.7; O2SAT 95
[2024-11-05 05:16] LABS: Hemoglobin 8.2 g/dL (12.2-16.2); Nucleated Red Blood Cells % 0.0 %
[2024-11-05 05:19] LABS: Hematocrit 24.8 % (36.0-46.0); Mean Corpuscular Hemoglobin 27.6 pg (28.0-32.0); Mean Corpuscular Volume 83.7 fL (80.0-100.0)
[2024-11-05 05:21] LABS: Albumin 3.5 g/dL (3.2-4.8); Alkaline Phosphatase 95 U/L (46-116); Anion Gap 12 (5-15); BUN/Creatinine Ratio 9.4 (10.0-20.0); Glucose 95 mg/dL (74-106); Potassium 4.2 mmol/L (3.5-5.1); Sodium 136 mmol/L (136-145); Total Protein 7.1 g/dL (5.7-8.2)
[2024-11-05 05:22] LABS: Alanine Aminotransferase < 9 U/L (7-40); Bilirubin, Total < 0.2 mg/dL (0.2-1.0); Blood Urea Nitrogen 34 mg/dL (9-23); Calcium 8.4 mg/dL (8.7-10.4); Carbon Dioxide 15 mmol/L (20-31); Chloride 109 mmol/L (98-107)
[2024-11-05 09:00] VITALS: BP 114/74; PULSE 83; RESP 16; TEMP 98.1; O2SAT 97
[2024-11-05] MEDS: CLINDAMYCIN 600MG IV 50 ML IV ONE (09:37)
[2024-11-05] MEDS: FERROUS SULFATE 325mg EC TAB PO SCH (09:38)
[2024-11-05] MEDS: CYANOCOBALAMIN (B-12) 1000 MCG/1 ML VIAL IM ONE (09:50)
[2024-11-05] MEDS ORDERED: PATIENTS OWN MEDICATION (Amlodipine Besylate 1 TAB) PO SCH (10:00)
[2024-11-05] MEDS: CEFEPIME 0.5 GM in D5W 5% 50 ML IV SCH (10:00)
[2024-11-05] MEDS ORDERED: CEFEPIME 1GM/50ML 50 ML IV SCH (10:00)
[2024-11-05 13:00] VITALS: BP 118/77; PULSE 89; RESP 16; TEMP 97.8; O2SAT 98
--- NOTE | 2024-11-05 13:06 | DVHCONRES ---
Date Seen: Nov 05, 2024 Reason for Consultation Right foot wound History of Present Illness Patient states that for the last three days she has been experiencing worsening right foot pain associated with post and blood discharge and foul odor. She also states experiencing chills, fevers, nausea and vomiting. She is still feeling weak. She currently denies any chest pain, shortness of breath, dizziness, headache. On arrival to the ED, patient had a right ankle x-ray which demonstrated soft tissue swelling, distal tibia and fibula dislocation. Past Medical History See H&P Past Surgical History See H&P Family History: FH: heart disease G8 MOTHER Allergies: Coded Allergies: NO KNOWN ALLERGIES (Unverified , 11/26/20) Home Meds Active Scripts Famotidine (PEPCID TABLET) 20 Mg Tb, 1 TAB PO BID for 20 Days, #40 TAB 5 Refills Prov:MIRANDA WILSON DO 12/28/22 Acetaminophen (Tylenol Extra Strength) 500 Mg Tab, 500 MG PO QIDPRN for 10 Days, #40 TAB Prov:MIRANDA WILSON DO 12/28/22 Blood Glucose Monitoring Suppl (D-Care Glucometer Kit/Glu W/Device) 1 Kit Kit, KIT XX, #1 Prov:JAMARCUS DEL CASTILLO MD 11/23/22 Sodium Hypochlorite (Dakins Solution Quarter S) 0.125 % Maddie, 0.125 % EX BID, #473 ML Prov:JAMARCUS DEL CASTILLO MD 11/23/22 Cholecalciferol (Vitamin D3 Super Strength) 2,000 Unit Cap, 2000 UNIT PO DAILY for 30 Days, #30 CAP Prov:JAMARCUS DEL CASTILLO MD 11/23/22 Amlodipine Besylate (Amlodipine Besylate) 10 Mg Tab, 1 TAB PO DAILY, #30 TAB 5 Refills Prov:JAMARCUS DEL CASTILLO MD 11/23/22 Ondansetron Odt 4MG Tab (ZOFRAN PO) 4 Mg Tb, 4 MG PO Q6HP PRN, #30 TAB ODT TAB-DISSOLVE IN MOUTH, THEN SWALLOW Prov:JAMARCUS DEL CASTILLO MD 11/23/22 Hydrocodone-Acetaminophen (Hydrocodone Bitartrate/AC 5-325 mg) 1 Tab Tab, 1 TAB PO Q6HP PRN, #30 TAB Prov:JAMARCUS DEL CASTILLO MD 11/23/22 Nystatin (Mycostatin) 1 Applic Ap, 1 APPLIC TOP BID, #14 APPLIC Nystatin powder apply to lower abd area above groin for bid x 7 days Prov:TIMMY MATHIAS MD 12/05/20 Amlodipine Besylate (Amlodipine Besylate) 10 Mg Tab, 1 TAB PO DAILY, #30 TAB 1 Refill Prov:TIMMY MATHIAS MD 12/05/20 Reported Medications Hydralazine Hcl (Hydralazine Hcl) 25 Mg Tab, 25 MG PO TID for 30 Days, MG 12/01/20 Ferrous Sulfate (Ferrous Sulfate) 325 Mg Tab, 325 MG PO DAILY for 30 Days, MG 12/01/20 Current Medications Current Medications Medications (Trade) Dose Ordered Sig/Margarita Route PRN Reason Start Time Stop Time Status Last Admin Vancomycin HCl 250 ml @ 250 mls/hr ONCE STAT IV 11/04/24 13:55 11/04/24 14:54 DC 11/04/24 16:17 Sodium Chloride (Saline Lock Ns) 10 ml Q8HR IV 11/04/24 22:00 11/05/24 07:02 Acetaminophen (Tylenol Tablet) 325 mg Q4HP PRN PO MILD PAIN (1-3 PAIN SCALE) 11/04/24 15:00 Acetaminophen/ Hydrocodone Bitart ([place] 5/325MG Tab) 1 tab Q4HP PRN PO MODERATE PAIN (4-6 PAIN SCALE) 11/04/24 15:00 Ondansetron HCl (Zofran) 4 mg Q4HP PRN IV NAUSEA / VOMITING 11/04/24 15:00 11/05/24 02:39 Morphine Sulfate 2 mg Q4HPRN PRN IV SEVERE PAIN (7-10 PAIN SCALE) 11/04/24 15:00 11/05/24 12:21 Cefepime HCl 50 ml @ 12.5 mls/hr DAILY IV 11/05/24 10:00 UNV Vancomycin HCl 0 ml @ 0 mls/hr UD IV 11/04/24 15:45 Diagnostic Test (Pha) (Accu-Chek Comfort Curve T) 1 strip ACHS 11/04/24 17:00 11/05/24 11:30 Insulin Human Regular (InsuLIN R) ACHS SC 11/04/24 17:00 11/04/24 22:48 Dextrose 50 ml UD PRN IV Blood Sugar LESS THAN 60 11/04/24 15:45 Famotidine (Pepcid Tablet) 10 mg Q48H PO 11/04/24 22:00 11/04/24 22:48 Patient Own Medication 1 tab DAILY PO 11/05/24 10:00 UNV Amlodipine Besylate (Norvasc Tablet) 10 mg DAILY PO 11/05/24 10:00 11/05/24 07:47 DC Cefepime HCl 0.5 gm/Dextrose 50 ml @ 12.5 mls/hr DAILY IV 11/05/24 10:00 11/05/24 10:00 Ferrous Sulfate 325 mg DAILY PO 11/05/24 10:00 11/05/24 09:38 Amlodipine Besylate (Norvasc Tablet) 5 mg DAILY PO 11/05/24 10:00 11/05/24 09:38 Clindamycin Phosphate 50 ml @ 50 mls/hr Q8H IV 11/05/24 16:00 Vital Signs Vital Signs Date Time Temp Pulse Resp B/P (MAP) Pulse Ox O2 Delivery O2 Flow Rate FiO2 11/05/24 12:21 89 16 118/77 11/05/24 09:00 98.1 97 98.1 11/04/24 20:00 Room Air* 0 21 Physical Exam Dermatological: Skin is dry with mild erythema and some maceration around the wound site No gross deformities noted Mild non-pitting edema present bilaterally Right lateral ankle wound with purulent drainage Right lateral foot wound with purulent drainage Vascular: Dorsalis pedis and posterior tibial pulses are 1+ bilaterally Capillary refill is under 2 seconds Skin temperature is warm bilaterally Neurologic: Protective sensation is absent on the plantar forefoot bilaterally Monofilament testing reveals decreased sensation in multiple plantar sites Musculoskeletal: Range of motion at the ankle and MTP joints is within normal limits. Strength is 5/5 in all tested muscle groups. Gait is antalgic due to offloading of the affected limb. Labs/Diagnostic Data Labs Test 11/05/24 11:58 11/05/24 04:51 11/04/24 13:38 11/04/24 13:23 Range/Units POC Glucose 89 70-106 mg/dl White Blood Count 5.8 # 4.4-10.8 10^3/uL Red Blood Count 2.96 L 4.0-5.20 10^6/uL Hemoglobin 8.2 #L 12.2-16.2 g/dL Hematocrit 24.8 #L 36.0-46.0 % Mean Corpuscular Volume 83.7 80.0-100.0 fL Mean Corpuscular Hemoglobin 27.6 L 28.0-32.0 pg Mean Corpuscular Hemoglobin Concent 33.0 32.0-36.0 g/dL Red Cell Distribution Width 15.1 H 11.8-14.3 % Platelet Count 353 140-450 10^3/uL Mean Platelet Volume 7.4 6.9-10.8 fL Neutrophils (%) (Auto) 65.8 37.0-80.0 % Lymphocytes (%) (Auto) 14.5 10.0-50.0 % Monocytes (%) (Auto) 17.8 H 0.0-12.0 % Eosinophils (%) (Auto) 1.0 0.0-7.0 % Basophils (%) (Auto) 0.9 0.0-2.0 % Neutrophils # (Auto) 3.8 1.6-8.6 10 ^3/uL Lymphocytes # (Auto) 0.8 0.4-5.4 10 ^3/uL Monocytes # (Auto) 1.0 0-1.3 10 ^3/uL Eosinophils # (Auto) 0.1 0-0.8 10 ^3/uL Basophils # (Auto) 0 0-0.2 10 ^3/uL Nucleated Red Blood Cells 0.0 % Reticulocyte Count (auto) 1.43 0.5-1.5 % Sodium Level 136 136-145 mmol/L Potassium Level 4.2 3.5-5.1 mmol/L Chloride Level 109 H 98-107 mmol/L Carbon Dioxide Level 15 L 20-31 mmol/L Anion Gap 12 5-15 Blood Urea Nitrogen 34 #H 9-23 mg/dL Creatinine 3.62 H 0.550-1.02 mg/dL Glomerular Filtration Rate Calc 15 >90 mL/min BUN/Creatinine Ratio 9.4 L 10.0-20.0 Serum Glucose 95 74-106 mg/dL Calcium Level 8.4 L 8.7-10.4 mg/dL Total Bilirubin < 0.2 L 0.2-1.0 mg/dL Aspartate Amino Transferase (AST) < 8 L 13-40 U/L Alanine Aminotransferase (ALT) < 9 7-40 U/L Alkaline Phosphatase 95 46-116 U/L Total Protein 7.1 5.7-8.2 g/dL Albumin 3.5 3.2-4.8 g/dL Random Vancomycin Level 8.1 5-10 ug/mL Erythrocyte Sedimentation Rate 103 H 0-20 mm/hr Prothrombin Time 11.6 9.3-11.8 sec Prothrombin Time INR 1.11 0.9-1.15 Activated Partial Thromboplast Time 34.5 24.5-34.5 SEC Hemoglobin A1c 7.0 H <5.7 % A1C Serum Osmolality 318 H 278-298 mOsm/kg Lactic Acid Level 0.6 0.4-2.0 mmol/L Iron Level 14 L 50-170 ug/dL Total Iron Binding Capacity 190 L 250-425 ug/dL Percent Iron Saturation 7.4 L 15-50 % Ferritin 219.8 10-291 ng/mL C-Reactive Protein High Sensitivity 13.78 H <1.0 mg/dL Vitamin B12 Level 397 211-911 pg/mL Beta-Hydroxybutyric Acid 0.717 H < 0.4 mmol/L Urine Color Light-yellow Yellow Urine Clarity Clear Clear Urine pH 5.5 5.0-9.0 Urine Specific [place] 1.012 1.001-1.035 Urine Protein 1+ H Negative Urine Ketones Negative Negative Urine Blood 1+ H Negative /uL Urine Nitrite Negative Negative Urine Bilirubin Negative Negative Urine Urobilinogen Normal Negative mg/dL Urine Leukocyte Esterase Negative Negative /uL Urine RBC <1 0 - 4 /hpf Urine Microscopic WBC 2 0-5 /HPF Urine Squamous Epithelial Cells Few <5 /hpf Urine Bacteria Few H None Seen /hpf Urine Osmolality 370 mOsm/kg Urine Creatinine 91.78 30.0-125.0 mg/dL Urine Protein/Creatinine Ratio 1.40 Urine Sodium 54 40-220 mmol/L Urine Glucose 4+ H Normal mg/dL Urine Total Protein 128.1 H 1-14 mg/dL Urine Opiates Screen Neg NEGATIVE Urine Fentanyl Screen Neg NEGATIVE Urine Barbiturates Screen Neg NEGATIVE Urine Phencyclidine Screen Neg NEGATIVE Urine Amphetamines Screen Neg NEGATIVE Urine Benzodiazepines Screen Neg NEGATIVE Urine Cocaine Screen Neg NEGATIVE Urine Cannabinoids Screen Neg NEGATIVE Microbiology Date/Time Source Procedure Growth Status 11/04/24 22:42 Nose MRSA Screen - Final Complete Problems(with codes): (1) 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 (2) Non-healing ulcer of ankle (3) Septic arthritis of foot (4) Stage 4 chronic kidney disease (5) Non-healing ulcer of right foot (6) Urinary tract infection (7) Anemia (8) Hyponatremia (9) Leukocytosis (10) Acute renal injury (11) Acute osteomyelitis of right foot (12) Leukocytosis, unspecified (13) Thrombocytosis, unspecified (14) Anemia, unspecified (15) Acute renal failure (16) Diabetes mellitus with hyperglycemia (17) Osteomyelitis of right leg (18) DM type 2 with diabetic foot ulcer (19) Colitis (20) Diabetic foot ulcer Plan/Recommendation ASSESSMENT: Patient is a 43 year old seen on the floor for a worsening ulcer PLAN: - The patients chart was reviewed, clinical findings were discussed with the patient, the etiologies of the conditions were discussed in detail, and a treatment plan was agreed to at this time, with both oral and written instructions provided. - reviewed advanced imaging - discussed plan is to perform an incision and drainage - patient a lunch we will do under local - take him to the OR today - we will get cultures in the OR - can weightbear as tolerated in postoperative shoe All questions were answered and concerns addressed to the patient's satisfaction. The patient was given the phone number to the clinic and was told how to make contact with the clinic should any concerns or questions arise. Patient understands that if any questions or concerns arise prior to the next appointment, we should be contacted immediately. FOLLOW-UP: Continue to follow while inpatient Plan discussed with: Patient Visit Coding Podiatry Date of Service if different f: Nov 05, 2024 Billing Provider: GARO BAEZA DPM Podiatry Common Visit Codes: CONSULT ONLY Podiatry Consult Codes: 30684-WF/OBS CONSLTJ NEW/EST HI 80 GARO BAEZA DPM Nov 05, 2024 13:06
[2024-11-05] MEDS: BUPIVACAINE 0.25% INJ 50ML VIAL IJ ONE (14:04)
--- NOTE | 2024-11-05 14:18 | DVHOP2 ---
Operative Report - 2 Report Details Date: 11/05/24 Preop Diagnosis: 1. Right foot osteomyelitis 2. Right foot abscess 3. Right foot cellulitis 4. Right foot charcot Postop Diagnosis: Same as preop Surgeon: Garo Baeza MD Anesthesiologist: None Anesthesia: Local Consent: The patient was informed of the risks and benefits of the procedure. These include but are not limited to complications of anesthesia, postoperative infection, incomplete relief of symptoms, recurrence of symptoms, damage to blood vessels, nerves and tendons, deep venous thrombosis, pulmonary embolism and possible need for repeat surgery in the future. Complications: None Estimated Blood Loss: Minimal Fluids: See anesthesia Findings: Consistent with diagnosis Indications for Surgery: Worsening right foot wound Name of Procedure Performed 1. Right ankle I&D to bone () 2. Right foot I&D to bone () 3. Right fibula bone biopsy () Procedure Details Procedure Details: PRE-PROCEDURE INFORMATION: In the pre-op holding area, the extremity to be operated on was clearly marked and the patient verified correct laterality of the marking. The patient was transferred to the OR table and placed in a supine position. A timeout was performed in which identification of the correct patient, procedure, location, and materials was done. The right foot and leg were prepped and draped in normal sterile fashion. DESCRIPTION OF PROCEDURE: Attention was directed to the right lateral ankle where area of fluctuance was noted. An incision was made over this area and was deepened through blunt dissection. The incision was deepened to the level of abscess and bone. Care was taken to the dissection to avoid any neurovascular and tendinous structures. The incision was deepened to the bone, and the abscess appeared to be purulent fluid consistent with pus. The cortices of the bone was then removed with rongeur an all necrotic tissue. After the abscess was drained, the area was irrigated with 3 L normal saline using cysto tubing. Deep cultures were then obtained from the wound. A bone biopsy was then taken of the right fibula which was deepened to the muscle belly and tendons. The bone was then sent to pathology to determine the extent of osteomyelitis. The area was then inspected and any areas of tracking, especially along the tendons were also drained. The wound was packed with Betadine-soaked gauze and we will need to be closed at a later date. Attention was directed to the right forefoot where area of fluctuance was noted. An incision was made over this area and was deepened through blunt dissection. The incision was deepened to the level of abscess and bone. Care was taken to the dissection to avoid any neurovascular and tendinous structures. The incision was deepened to the bone, and the abscess appeared to be purulent fluid consistent with pus. The cortices of the bone was then removed with rongeur an all necrotic tissue. After the abscess was drained, the area was irrigated with 3 L normal saline using cysto tubing. Deep cultures were then obtained from the wound. The area was then inspected and any areas of tracking, especially along the tendons were also drained. The wound was packed with Betadine-soaked gauze and we will need to be closed at a later date. POSTOPERATIVE INFORMATION: The patient tolerated the above noted procedure and anesthesia well and was transferred to the PACU with vital signs stable, and vascular status intact with capillary refill intact to all digits. Deep cultures were taken. Bone biopsy was taken and sent off. Patient will likely need 6 weeks IV antibiotics. We will consider placement of graft possible tendon Achilles lengthening to help with contracture Specimen: Right fibula Condition Good Disposition Still a Patient Visit Coding Podiatry Date of Service if different f: Nov 05, 2024 Billing Provider: GARO BAEZA DPM Podiatry Common Visit Codes: PROCEDURE ONLY GARO BAEZA DPM Nov 05, 2024 14:18
--- NOTE | 2024-11-05 15:27 | DVHPNRES ---
Progress Note Date Seen: Nov 05, 2024 Resident Creating Document: CRISTIN ESTEVEZ RESIDENT Medical Necessity Reason Pt with a Central, PICC or Fol: No Subjective Review of Systems Patient is a 43-year-old male with past medical history of type 2 diabetes, hypertension, CKD, hyperlipidemia, anemia presented to [facility] ED with complaint of 3-day history of worsening right foot pain. She describes the pain as sharp, continuous, and severe (10/10), associated with nausea, vomiting, fever, and chills. She reports foul-smelling discharge and bleeding from the affected area. The patient continues to feel weak but denies chest pain, shortness of breath, dizziness, or headache. Upon arrival, a right ankle X-ray was performed, revealing soft tissue swelling and dislocation of the distal tibia and fibula. Past medical history: type 2 diabetes, hypertension, CKD, hyperlipidemia, anemia Past surgical history: Right 5th toe amputation. Three C sections. Social & Personal history: Denied smoking. Denied alcohol. Denied drink. Allergies: No known allergies Patient seen and examined at bedside. Patient is alert and oriented to time, place person and responding to all questions. Constitutional: Yes: Fever, Chills, Weakness; No: Sweats, Malaise, Other Eyes: No Pain, No Vision change, No Conjunctivae inflammation, No Eyelid inflammation, No Other, No Redness ENT: No Ear pain, No Ear discharge, No Nose pain, No Nose discharge, No Nose congestion, No Mouth pain, No Mouth swelling, No Throat pain, No Throat swelling, No Other Cardiovascular: No Chest Pain, No Palpitations, No Orthopnea, No Paroxysmal No Dyspnea, No Edema, No Lt Headedness, No Other Respiratory: No Cough, No Dry, No Shortness of breath, No SOB with exertion, No Wheezing, No Hemoptysis, No Pleuritic Pain, No Sputum, No Other Gastrointestinal: No Nausea, No Vomiting, No Abdominal Pain, No Diarrhea, No Constipation, No Melena, No Hematochezia, No Other Genitourinary: No Dysuria, No Frequency, No Incontinence, No Hematuria, No Retention, No Other Musculoskeletal: Foot pain. No other, No neck pain, No shoulder pain, No arm pain, No back pain, No hand pain, No leg pain Skin: No Rash, No Lesions, No Jaundice, No Bruising, No Other Objective vital signs Vital Sign Date Time Temp Pulse Resp B/P (MAP) Pulse Ox O2 Delivery O2 Flow Rate FiO2 11/05/24 14:10 92 16 156/90 (112) 98 11/05/24 13:00 97.8 97.8 11/05/24 08:00 Room Air* 0 21 Total Intake and Output 11/04/24 11/04/24 11/05/24 15:00 23:00 07:00 Intake Total 1500 ml 700 ml Balance 1500 ml 700 ml medications Current Medications Medications Dose Ordered Sig/Margarita Route Start Time Stop Time Status Last Admin Dose Admin Sodium Chloride 10 ml Q8HR IV 11/04/24 22:00 11/05/24 07:02 10 ML Acetaminophen 325 mg Q4HP PRN PO 11/04/24 15:00 Acetaminophen/ Hydrocodone Bitart 1 tab Q4HP PRN PO 11/04/24 15:00 Ondansetron HCl 4 mg Q4HP PRN IV 11/04/24 15:00 11/05/24 02:39 4 MG Morphine Sulfate 2 mg Q4HPRN PRN IV 11/04/24 15:00 11/05/24 12:21 2 MG Cefepime HCl 50 ml @ 12.5 mls/hr DAILY IV 11/05/24 10:00 UNV Vancomycin HCl 0 ml @ 0 mls/hr UD IV 11/04/24 15:45 Diagnostic Test (Pha) 1 strip ACHS 11/04/24 17:00 11/05/24 11:30 1 STRIP Insulin Human Regular ACHS SC 11/04/24 17:00 11/04/24 22:48 3 UNITS Dextrose 50 ml UD PRN IV 11/04/24 15:45 Famotidine 10 mg Q48H PO 11/04/24 22:00 11/04/24 22:48 10 MG Patient Own Medication 1 tab DAILY PO 11/05/24 10:00 UNV Cefepime HCl 0.5 gm/Dextrose 50 ml @ 12.5 mls/hr DAILY IV 11/05/24 10:00 11/05/24 10:00 12.5 MLS/HR Ferrous Sulfate 325 mg DAILY PO 11/05/24 10:00 11/05/24 09:38 325 MG Amlodipine Besylate 5 mg DAILY PO 11/05/24 10:00 9/25/25 09:38 5 MG Clindamycin Phosphate 50 ml @ 50 mls/hr Q8H IV 11/05/24 16:00 Insulin Glargine 25 units HS SC 11/05/24 22:00 Examination General: Awake, alert, in mild distress due to foot pain HEENT: Head is normocephalic and atraumatic. Pupils are equal, round, and reactive to light. Extraocular muscles are intact. No nasal discharge. No facial trauma. Intraoral exam shows moist mucous membranes with no tonsillar enlargement or exudate. Neck: Supple with no cervical lymphadenopathy. Heart: Regular rate without murmur, rub, or gallop. Lungs: Equal breath sounds bilaterally with no wheezing, rales, or rhonchi. There is no chest wall tenderness or instability. Abdomen: No external sign of injury. Bowel sounds are present. Abdomen is soft, nontender. No rebound, no guarding, no rigidity. There are no palpable masses. There is no flank pain on exam. Extremities: Strong peripheral pulses. Feet appear deformed with Charcot features, right worse than left. There is a large round wound on plantar area of right foot, draining yellow foul-smelling fluid, there is tenderness to palpation of the right foot, mild swelling, no crepitus, no other associated rash. Skin: No rash. Neurologic: Cranial nerves II-XII intact without motor, sensory, or cerebellar deficit, no asterixis. laboratory and microbiology Laboratory Tests 11/05/24 04:51 Test 11/05/24 04:51 Range/Units Serum Glucose 95 74-106 mg/dL Microbiology Date/Time Source Procedure Growth Status 11/04/24 22:42 Nose MRSA Screen - Final Complete 11/04/24 13:38 Blood Blood Culture - Preliminary NO GROWTH AFTER 24 HOURS OF INCUBATION. Resulted Labs and/or images reviewed: Labs reviewed by me, Image(s) reviewed by me Problem List/Assessment/Plan Problem List/Assessment/Plan #Right diabetic foot infection #Right foot osteomyelitis of the distal tibia, talus, and calcaneus and 5th metatarsal head and 5th digit phalanges #midfoot charcot arthropathy -Podiatry consult -Wound consult -Right foot MRI: Significant osteomyelitis of the distal tibia, talus, and calcaneus. Significant osteomyelitis of the 5th metatarsal head and 5th digit phalanges. Soft tissue ulceration of the plantar lateral aspect of the forefoot. Chronic suspected ulcer versus sequelae prior surgical of the plantar medial aspect of the forefoot in the area of residual partially resected 1st metatarsal. Severe midfoot charcot arthropathy. 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 No hydronephrosis of either kidney. -Urine sodium, urine creatinine, protein/creatinine clearance #Elevated anion gap metabolic acidosis, likely due to above #Hypertension, controlled -Amlodipine 5 mg p.o. q.d. #Anemia normocytic normochromic -Iron panel, ferritin, vitamin B12 -Stool occult blood test #GERD -Famotidine 20 mg p.o. b.i.d. Goals of care: Full code, discussed for >16 minutes on 11/05/24 Plan discussed with patient Plan discussed with Dr. Garcia Plan discussed with: Patient Date of Service: Nov 05, 2024 Billing Provider: JAMARCUS GARCIA MD Common Visit Codes: [id number] INP/OBS CARE(HIGH) Secondary Visit Codes: 47952-[id number] CARE PLAN 30 MINUTES CRISTIN ESTEVEZ Nov 05, 2024 15:27 JAMARCUS GARCIA MD Nov 07, 2024 00:30
[2024-11-05] MEDS: CLINDAMYCIN 600MG IV 50 ML IV SCH (16:39)
[2024-11-05] MEDS: VANCOMYCIN 500mg/100mL 100 ML IV ONE (16:39)
[2024-11-05 17:00] VITALS: BP 120/72; PULSE 93; RESP 16; TEMP 97.2; O2SAT 100
[2024-11-05 21:00] VITALS: BP 132/86; PULSE 94; RESP 18; TEMP 98.2; O2SAT 99
[2024-11-05] MEDS: INSULIN LANTUS (GLARGINE) 1 /0.01ml (100units/ml) SC SCH (21:42)
[2024-11-06] VITALS (7 sets, daily range): BP systolic 117–138; BP diastolic 75–89; PULSE 83–87; RESP 15–18; TEMP 97.5–98.5; O2SAT 94–100
[2024-11-06 05:32] LABS: Hematocrit 26.2 % (36.0-46.0); Hemoglobin 8.7 g/dL (12.2-16.2); Mean Corpuscular Hemoglobin 27.8 pg (28.0-32.0); Mean Corpuscular Volume 83.9 fL (80.0-100.0); Nucleated Red Blood Cells % 0.0 %
[2024-11-06 05:42] LABS: Anion Gap 12 (5-15); Potassium 4.4 mmol/L (3.5-5.1)
[2024-11-06 05:44] LABS: Calcium 8.5 mg/dL (8.7-10.4); Carbon Dioxide 17 mmol/L (20-31); Chloride 107 mmol/L (98-107); Sodium 136 mmol/L (136-145)
[2024-11-06 05:49] LABS: BUN/Creatinine Ratio 8.7 (10.0-20.0); Blood Urea Nitrogen 30 mg/dL (9-23); Glucose 91 mg/dL (74-106)
[2024-11-06 07:47] LABS: Magnesium 1.7 mg/dL (1.6-2.6)
[2024-11-06] MEDS: LACTATED RINGER'S 1,000 ML IV ONE (11:43)
[2024-11-06] MEDS: VANCOMYCIN 1GM/250ML KIT 250 ML IV ONE (13:37)
--- NOTE | 2024-11-06 14:52 | DVHPNRES ---
Progress Note Date Seen: Nov 06, 2024 Resident Creating Document: CRISTIN ESTEVEZ Medical Necessity Reason Pt with a Central, PICC or Fol: No Subjective Review of Systems Patient is a 43-year-old female with past medical history of type 2 diabetes, hypertension, CKD, hyperlipidemia, anemia presented to [facility] ED with complaint of 3-day history of worsening right foot pain. She describes the pain as sharp, continuous, and severe (10/10), associated with nausea, vomiting, fever, and chills. She reports foul-smelling discharge and bleeding from the affected area. The patient continues to feel weak but denies chest pain, shortness of breath, dizziness, or headache. Upon arrival, a right ankle X-ray was performed, revealing soft tissue swelling and dislocation of the distal tibia and fibula. 11/06: Patient is seen today at bedside. Patient is currently postoperative day 1 after incision and drainage for foot osteomyelitis. Pain is mild, provided to the distal foot, 3/10. She states that today she is feeling better and stable. Pain is improved compared to yesterday, no new symptoms reported. Objective vital signs Vital Sign Date Time Temp Pulse Resp B/P (MAP) Pulse Ox O2 Delivery O2 Flow Rate FiO2 11/06/24 12:51 98.4 86 17 138/89 (105) 99 98.4 11/06/24 08:00 Room Air* 0 21 Total Intake and Output 11/05/24 11/05/24 11/06/24 15:00 23:00 07:00 Intake Total 500 ml 400 ml 250 ml Balance 500 ml 400 ml 250 ml medications Current Medications Medications Dose Ordered Sig/Margarita Route Start Time Stop Time Status Last Admin Dose Admin Sodium Chloride 10 ml Q8HR IV 11/04/24 22:00 11/06/24 06:00 10 ML Acetaminophen 325 mg Q4HP PRN PO 11/04/24 15:00 Acetaminophen/ Hydrocodone Bitart 1 tab Q4HP PRN PO 11/04/24 15:00 Ondansetron HCl 4 mg Q4HP PRN IV 11/04/24 15:00 11/06/24 08:58 4 MG Morphine Sulfate 2 mg Q4HPRN PRN IV 11/04/24 15:00 11/06/24 08:58 2 MG Cefepime HCl 50 ml @ 12.5 mls/hr DAILY IV 11/05/24 10:00 UNV Vancomycin HCl 0 ml @ 0 mls/hr UD IV 11/04/24 15:45 Diagnostic Test (Pha) 1 strip ACHS 11/04/24 17:00 11/06/24 06:46 1 STRIP Insulin Human Regular ACHS SC 11/04/24 17:00 11/05/24 21:41 3 UNITS Dextrose 50 ml UD PRN IV 11/04/24 15:45 Famotidine 10 mg Q48H PO 11/04/24 22:00 11/04/24 22:48 10 MG Patient Own Medication 1 tab DAILY PO 11/05/24 10:00 UNV Cefepime HCl 0.5 gm/Dextrose 50 ml @ 12.5 mls/hr DAILY IV 11/05/24 10:00 11/06/24 11:44 12.5 MLS/HR Ferrous Sulfate 325 mg DAILY PO 11/05/24 10:00 11/06/24 08:59 325 MG Amlodipine Besylate 5 mg DAILY PO 11/05/24 10:00 11/06/24 08:59 5 MG Clindamycin Phosphate 50 ml @ 50 mls/hr Q8H IV 11/05/24 16:00 11/06/24 08:58 50 MLS/HR Insulin Glargine 25 units HS SC 11/05/24 22:00 11/05/24 21:42 25 UNITS Examination General: Awake, alert, in mild distress due to foot pain HEENT: Head is normocephalic and atraumatic. Pupils are equal, round, and reactive to light. Extraocular muscles are intact. No nasal discharge. No facial trauma. Intraoral exam shows moist mucous membranes with no tonsillar enlargement or exudate. Neck: Supple with no cervical lymphadenopathy. Heart: Regular rate without murmur, rub, or gallop. Lungs: Equal breath sounds bilaterally with no wheezing, rales, or rhonchi. There is no chest wall tenderness or instability. Abdomen: No external sign of injury. Bowel sounds are present. Abdomen is soft, nontender. No rebound, no guarding, no rigidity. There are no palpable masses. There is no flank pain on exam. Extremities: Strong peripheral pulses. Feet appear deformed with Charcot features, right worse than left. Dressed right foot/ankle with a clean dressing Skin: No rash. Neurologic: Cranial nerves II-XII intact without motor, sensory, or cerebellar deficit, no asterixis. laboratory and microbiology Laboratory Tests 11/06/24 04:56 Test 11/06/24 04:56 Range/Units Serum Glucose 91 74-106 mg/dL Microbiology Date/Time Source Procedure Growth Status 11/05/24 14:05 Foot Right Gram Stain Pending Resulted 11/05/24 14:05 Foot Right Anaerobic Culture - Preliminary Resulted 11/05/24 14:05 Aerobic Culture - Preliminary Streptococcus Group B Resulted 11/04/24 13:38 Blood Blood Culture - Preliminary NO GROWTH AFTER 48 HOURS OF INCUBATION. Resulted Labs and/or images reviewed: Labs reviewed by me, Image(s) reviewed by me Problem List/Assessment/Plan Problem List/Assessment/Plan #Right diabetic foot infection #Right foot osteomyelitis of the distal tibia, talus, and calcaneus and 5th metatarsal head and 5th digit phalanges #midfoot Charcot arthropathy -Podiatry consult -Wound consult -Incision and drainage of abscesses with bone biopsy of the right lateral ankle and right forefoot on 11/05/24 -Right foot MRI: Significant osteomyelitis of the distal tibia, talus, and calcaneus. Significant osteomyelitis of the 5th metatarsal head and 5th digit phalanges. Soft tissue ulceration of the plantar lateral aspect of the forefoot. Chronic suspected ulcer versus sequelae prior surgical of the plantar medial aspect of the forefoot in the area of residual partially resected 1st metatarsal. Severe midfoot Charcot arthropathy. 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 No hydronephrosis of either kidney. -Urine sodium, urine creatinine, protein/creatinine clearance #Elevated anion gap metabolic acidosis, likely due to above #Hypertension, controlled -Amlodipine 5 mg p.o. q.d. #Anemia normocytic normochromic -Iron panel, ferritin, vitamin B12 -Stool occult blood test #GERD -Famotidine 20 mg p.o. b.i.d. Goals of care: Full code, discussed for 20 minutes on 11/06/24 Plan discussed with patient Plan discussed with Dr. Rincon Plan discussed with: Patient, Other (RN) My Orders My Orders Orders - CRISTIN ESTEVEZ Procedure Category Date Status Time Dietary NOTICE 11/06/24 Transmitted Recommendations 11:20 Complete Blood Count LAB 11/07/24 Verified 04:00 Basic Metabolic Panel LAB 11/07/24 Verified 04:00 Dietary Evaluation Review Comments: Nutrition Recommendation: 1) CCHO 60gm + cardiac diet 2) Giovani 1 pk daily 3) Refer [employer] Operator for diabetes education Expected Outcomes/Goals: Wound to improve Fu 3-5 days Date of Service: Nov 06, 2024 Billing Provider: TIFFANY RINCON MD Common Visit Codes: [id number] INP/OBS CARE(HIGH) Secondary Visit Codes: [id number] CARE PLAN 30 MINUTES (20 minutes) Addendum Addendum Addendum I was physically present for the oneill portions of the service provided to patient by THE RESIDENT. I have reviewed the documentation, discussed the case with resident and agree with the resident's documentation except as noted. Also the patient's clinical case was discussed with the patient's nurse. This medical document was created using an electronic medical record system with computerized dictation system. Although this document has been carefully reviewed, there might still be some phonetic and typographical errors. These areas are purely typographical due to imperfections of the software programs, and do not reflect any compromise in the patient's medical care. Late signature. CRISTIN ESTEVEZ Nov 06, 2024 14:52 TIFFANY RINCON MD Nov 09, 2024 05:40
[2024-11-06] MEDS: SODIUM CHLORIDE 0.9% 500 ML IV ONE (15:30)
[2024-11-07] VITALS (8 sets, daily range): BP systolic 115–147; BP diastolic 74–93; PULSE 70–89; RESP 16–20; TEMP 97–98.7; O2SAT 96–99
[2024-11-07 10:28] LABS: Hematocrit 26.4 % (36.0-46.0); Hemoglobin 8.6 g/dL (12.2-16.2); Mean Corpuscular Hemoglobin 27.1 pg (28.0-32.0); Mean Corpuscular Volume 83.2 fL (80.0-100.0); Nucleated Red Blood Cells % 0.0 %
[2024-11-07 10:39] LABS: Chloride 105 mmol/L (98-107); Potassium 4.6 mmol/L (3.5-5.1)
[2024-11-07 10:40] LABS: Anion Gap 11 (5-15)
[2024-11-07 10:45] LABS: BUN/Creatinine Ratio 10.9 (10.0-20.0)
[2024-11-07 10:49] LABS: Blood Urea Nitrogen 36 mg/dL (9-23); Calcium 8.2 mg/dL (8.7-10.4); Carbon Dioxide 19 mmol/L (20-31); Creatine Kinase IFCC 17 U/L (34-145); Glucose 112 mg/dL (74-106); Sodium 135 mmol/L (136-145)
[2024-11-07 10:58] LABS: Uric Acid 6.8 mg/dL (3.1-7.8)
--- NOTE | 2024-11-07 11:43 | DVHPNRES ---
Progress Note Date Seen: Nov 07, 2024 Resident Creating Document: LAURIE CONTRERAS RESIDENT Medical Necessity Reason Pt with a Central, PICC or Fol: No Subjective Review of Systems 11/07: Patient was seen and examined at bedside. She stated having mild right foot pain, it is controlled with pain medication. She is currently tolerating diet. Denies any other associated symptoms. Objective vital signs Vital Sign Date Time Temp Pulse Resp B/P (MAP) Pulse Ox O2 Delivery O2 Flow Rate FiO2 11/07/24 10:28 79 16 123/76 11/07/24 09:00 98.7 97 98.7 11/07/24 08:00 Room Air* 0 21 Total Intake and Output 11/06/24 11/06/24 11/07/24 15:00 23:00 07:00 Intake Total 50 ml 400 ml 260 ml Output Total 1500 ml 600 ml Balance 50 ml -1100 ml -340 ml medications Current Medications Medications Dose Ordered Sig/Margarita Route Start Time Stop Time Status Last Admin Dose Admin Sodium Chloride 10 ml Q8HR IV 11/04/24 22:00 11/07/24 06:15 10 ML Acetaminophen 325 mg Q4HP PRN PO 11/04/24 15:00 Acetaminophen/ Hydrocodone Bitart 1 tab Q4HP PRN PO 11/04/24 15:00 Ondansetron HCl 4 mg Q4HP PRN IV 11/04/24 15:00 11/07/24 10:27 4 MG Morphine Sulfate 2 mg Q4HPRN PRN IV 11/04/24 15:00 11/07/24 10:28 2 MG Cefepime HCl 50 ml @ 12.5 mls/hr DAILY IV 11/05/24 10:00 UNV Vancomycin HCl 0 ml @ 0 mls/hr UD IV 11/04/24 15:45 Diagnostic Test (Pha) 1 strip ACHS 11/04/24 17:00 11/07/24 06:15 1 STRIP Insulin Human Regular ACHS SC 11/04/24 17:00 11/06/24 21:50 3 UNITS Dextrose 50 ml UD PRN IV 11/04/24 15:45 Famotidine 10 mg Q48H PO 11/04/24 22:00 11/06/24 21:27 10 MG Patient Own Medication 1 tab DAILY PO 11/05/24 10:00 UNV Cefepime HCl 0.5 gm/Dextrose 50 ml @ 12.5 mls/hr DAILY IV 11/05/24 10:00 11/06/24 11:44 12.5 MLS/HR Ferrous Sulfate 325 mg DAILY PO 11/05/24 10:00 11/07/24 10:27 325 MG Amlodipine Besylate 5 mg DAILY PO 11/05/24 10:00 11/07/24 10:27 5 MG Clindamycin Phosphate 50 ml @ 50 mls/hr Q8H IV 11/05/24 16:00 11/07/24 10:27 50 MLS/HR Examination General: Awake, alert, no distress HEENT: Head is normocephalic and atraumatic. Pupils are equal, round, and reactive to light. Extraocular muscles are intact. No nasal discharge. No facial trauma. Intraoral exam shows moist mucous membranes with no tonsillar enlargement or exudate. Neck: Supple with no cervical lymphadenopathy. Heart: Regular rate without murmur, rub, or gallop. Lungs: Equal breath sounds bilaterally with no wheezing, rales, or rhonchi. There is no chest wall tenderness or instability. Abdomen: No external sign of injury. Bowel sounds are present. Abdomen is soft, nontender. No rebound, no guarding, no rigidity. There are no palpable masses. There is no flank pain on exam. Extremities: Strong peripheral pulses. Feet appear deformed with Charcot features, right worse than left. Clean dressing of right ankle/ Skin: No rash. Neurologic: Cranial nerves II-XII intact without motor, sensory, or cerebellar deficit, no asterixis. laboratory and microbiology Laboratory Tests 11/07/24 10:01 Test 11/07/24 10:01 Range/Units Serum Glucose 112 H 74-106 mg/dL Microbiology Date/Time Source Procedure Growth Status 11/05/24 14:05 Foot Right Gram Stain - Final Resulted 11/05/24 14:05 Foot Right Anaerobic Culture - Preliminary Resulted 11/05/24 14:05 Aerobic Culture - Preliminary Streptococcus Group B Resulted 11/04/24 13:38 Blood Blood Culture - Preliminary NO GROWTH AFTER 48 HOURS OF INCUBATION. Resulted Labs and/or images reviewed: Labs reviewed by me, Image(s) reviewed by me Problem List/Assessment/Plan Problem List/Assessment/Plan #Sepsis due to right foot infection/cellulitis and osteomyelitis #Right diabetic foot infection #Right foot osteomyelitis of the distal tibia, talus, and calcaneus and 5th metatarsal head and 5th digit phalanges #midfoot charcot arthropathy -Podiatry following, graft procedure will be performed on Saturday -Incision and drainage of abscesses with bone biopsy of the right lateral ankle and right forefoot on 11/05/24 -Right foot MRI: Significant osteomyelitis of the distal tibia, talus, and calcaneus. Significant osteomyelitis of the 5th metatarsal head and 5th digit phalanges. Soft tissue ulceration of the plantar lateral aspect of the forefoot. Chronic suspected ulcer versus sequelae prior surgical of the plantar medial aspect of the forefoot in the area of residual partially resected 1st metatarsal. Severe midfoot charcot arthropathy. 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 No hydronephrosis of either kidney. -Urine sodium, urine creatinine, protein/creatinine clearance nephrology consult pending for PICC line clearance #Elevated anion gap metabolic acidosis, likely due to above #Hypertension, controlled -Amlodipine 5 mg p.o. q.d. #Anemia normocytic normochromic, anemia of chronic disease monitor #GERD -Famotidine 20 mg p.o. b.i.d. Goals of care: Full code Plan discussed with Dr. Dick Plan discussed with: Patient, Other (RN) Dietary Evaluation Review Comments: Nutrition Recommendation: 1) CCHO 60gm + cardiac diet 2) Giovani 1 pk daily 3) Refer [employer] Officer for diabetes education Expected Outcomes/Goals: Wound to improve Fu 3-5 days Date of Service: Nov 07, 2024 Billing Provider: TIFFANY DICK MD Common Visit Codes: [id number] INP/OBS CARE(HIGH) Addendum Addendum Addendum I was physically present for the oneill portions of the service provided to patient by THE RESIDENT. I have reviewed the documentation, discussed the case with resident and agree with the resident's documentation except as noted. Also the patient's clinical case was discussed with the patient's nurse. This medical document was created using an electronic medical record system with computerized dictation system. Although this document has been carefully reviewed, there might still be some phonetic and typographical errors. These areas are purely typographical due to imperfections of the software programs, and do not reflect any compromise in the patient's medical care. Late signature. LAURIE CONTRERAS RESIDENT Nov 07, 2024 11:43 TIFFANY DICK MD Nov 09, 2024 05:42
--- NOTE | 2024-11-07 13:46 | DVHINCON2 ---
Date of service: Nov 07, [address] Renato Vicente Reason for Consultation Acute kidney injury History of Present Illness Mrs. Kirk is a 43-year-old female with known history of diabetes who presented for further evaluation and management of right foot pain. Her clinical course has been notable for diagnosis of deep tissue infection involving the right foot. She underwent debridement from Podiatry during current hospitalization. Current consultation requested for evaluation of acute kidney injury and also clearance for PICC line placement. Patient was seen in her room awake alert conversant and in no acute distress currently. She is slightly pale in appe arance. She does report prior knowledge of underlying kidney insufficiency. Past Medical History Hypertension Diabetes Dyslipidemia Allergies: Coded Allergies: NO KNOWN ALLERGIES (Unverified , 11/26/20) Home Meds Active Scripts Famotidine (PEPCID TABLET) 20 Mg Tb, 1 TAB PO BID for 20 Days, #40 TAB 5 Refills Prov:MIRANDA WILSON DO 12/28/22 Acetaminophen (Tylenol Extra Strength) 500 Mg Tab, 500 MG PO QIDPRN for 10 Days, #40 TAB Prov:MIRANDA WILSON DO 12/28/22 Blood Glucose Monitoring Suppl (D-Care Glucometer Kit/Glu W/Device) 1 Kit Kit, KIT XX, #1 Prov:JAMARCUS DEL CASTILLO MD 11/23/22 Sodium Hypochlorite (Dakins Solution Quarter S) 0.125 % Maddie, 0.125 % EX BID, #473 ML Prov:JAMARCUS DEL CASTILLO MD 11/23/22 Cholecalciferol (Vitamin D3 Super Strength) 2,000 Unit Cap, 2000 UNIT PO DAILY for 30 Days, #30 CAP Prov:JAMARCUS DEL CASTILLO MD 11/23/22 Amlodipine Besylate (Amlodipine Besylate) 10 Mg Tab, 1 TAB PO DAILY, #30 TAB 5 Refills Prov:JAMARCUS DEL CASTILLO MD 11/23/22 Ondansetron Odt 4MG Tab (ZOFRAN PO) 4 Mg Tb, 4 MG PO Q6HP PRN, #30 TAB ODT TAB-DISSOLVE IN MOUTH, THEN SWALLOW Prov:JAMARCUS DEL CASTILLO MD 11/23/22 Hydrocodone-Acetaminophen (Hydrocodone Bitartrate/AC 5-325 mg) 1 Tab Tab, 1 TAB PO Q6HP PRN, #30 TAB Prov:JAMARCUS DEL CASTILLO MD 11/23/22 Nystatin (Mycostatin) 1 Applic Ap, 1 APPLIC TOP BID, #14 APPLIC Nystatin powder apply to lower abd area above groin for bid x 7 days Prov:TIMMY MATHIAS MD 12/05/20 Amlodipine Besylate (Amlodipine Besylate) 10 Mg Tab, 1 TAB PO DAILY, #30 TAB 1 Refill Prov:TIMMY MATHIAS MD 12/05/20 Reported Medications Hydralazine Hcl (Hydralazine Hcl) 25 Mg Tab, 25 MG PO TID for 30 Days, MG 12/01/20 Ferrous Sulfate (Ferrous Sulfate) 325 Mg Tab, 325 MG PO DAILY for 30 Days, MG 12/01/20 Family History: FH: heart disease G8 MOTHER Review of Systems Denies gross hematuria, dysuria, tea or Coca-Cola colored urine Denies excessive use of recent NSAIDs, foamy urine, recent IV contrast studies Denies recent chest pain, dyspnea, PND, orthopnea Denies unintentional weight loss, night sweats H&P Exam Vital Signs/I&O Vital Sign Date Time Temp Pulse Resp B/P (MAP) Pulse Ox O2 Delivery O2 Flow Rate FiO2 11/07/24 12:55 97.7 81 16 147/87 (107) 96 97.7 11/07/24 08:00 Room Air* 0 21 Intake and Output 11/06/24 11/07/24 18:59 06:59 Intake Total 450 ml 260 ml Output Total 1500 ml 600 ml Balance -1050 ml -340 ml Intake Oral 350 ml 260 ml IV Total 100 ml Output Urine Total 1500 ml 600 ml Physical Exam Gen: nad heent: nc/at, mmm lungs: cta anteriorly cvs: no rub abd: soft, bowel sounds audible ext: Right lower extremity with dressing skin: no petechiae neuro: alert and oriented Labs/Diagnostic Data Labs/Diagnostic Data Laboratory Tests Test 11/07/24 12:02 11/07/24 10:01 11/07/24 06:47 11/06/24 21:40 Range/Units POC Glucose 105 74 171 H 70-106 mg/dl White Blood Count 4.8 4.4-10.8 10^3/uL Red Blood Count 3.18 L 4.0-5.20 10^6/uL Hemoglobin 8.6 L 12.2-16.2 g/dL Hematocrit 26.4 L 36.0-46.0 % Mean Corpuscular Volume 83.2 80.0-100.0 fL Mean Corpuscular Hemoglobin 27.1 L 28.0-32.0 pg Mean Corpuscular Hemoglobin Concent 32.6 32.0-36.0 g/dL Red Cell Distribution Width 14.6 H 11.8-14.3 % Platelet Count 447 140-450 10^3/uL Mean Platelet Volume 7.2 6.9-10.8 fL Neutrophils (%) (Auto) 60.2 37.0-80.0 % Lymphocytes (%) (Auto) 21.6 10.0-50.0 % Monocytes (%) (Auto) 13.5 H 0.0-12.0 % Eosinophils (%) (Auto) 3.6 0.0-7.0 % Basophils (%) (Auto) 1.1 0.0-2.0 % Neutrophils # (Auto) 2.9 1.6-8.6 10 ^3/uL Lymphocytes # (Auto) 1.0 0.4-5.4 10 ^3/uL Monocytes # (Auto) 0.6 0-1.3 10 ^3/uL Eosinophils # (Auto) 0.2 0-0.8 10 ^3/uL Basophils # (Auto) 0.1 0-0.2 10 ^3/uL Nucleated Red Blood Cells 0.0 % Sodium Level 135 L 136-145 mmol/L Potassium Level 4.6 3.5-5.1 mmol/L Chloride Level 105 98-107 mmol/L Carbon Dioxide Level 19 L 20-31 mmol/L Anion Gap 11 5-15 Blood Urea Nitrogen 36 H 9-23 mg/dL Creatinine 3.30 H 0.550-1.02 mg/dL Glomerular Filtration Rate Calc 17 >90 mL/min BUN/Creatinine Ratio 10.9 10.0-20.0 Serum Glucose 112 H 74-106 mg/dL Uric Acid 6.8 3.1-7.8 mg/dL Calcium Level 8.2 L 8.7-10.4 mg/dL Creatine Kinase 17 L 34-145 U/L Random Vancomycin Level 16.4 H 5-10 ug/mL Test 11/06/24 17:25 11/06/24 11:48 11/06/24 06:08 11/06/24 04:56 Range/Units POC Glucose 141 H 74 91 70-106 mg/dl White Blood Count 5.5 4.4-10.8 10^3/uL Red Blood Count 3.12 L 4.0-5.20 10^6/uL Hemoglobin 8.7 L 12.2-16.2 g/dL Hematocrit 26.2 L 36.0-46.0 % Mean Corpuscular Volume 83.9 80.0-100.0 fL Mean Corpuscular Hemoglobin 27.8 L 28.0-32.0 pg Mean Corpuscular Hemoglobin Concent 33.1 32.0-36.0 g/dL Red Cell Distribution Width 14.8 H 11.8-14.3 % Platelet Count 410 140-450 10^3/uL Mean Platelet Volume 7.2 6.9-10.8 fL Neutrophils (%) (Auto) 56.9 37.0-80.0 % Lymphocytes (%) (Auto) 21.3 10.0-50.0 % Monocytes (%) (Auto) 18.2 H 0.0-12.0 % Eosinophils (%) (Auto) 2.6 0.0-7.0 % Basophils (%) (Auto) 1.0 0.0-2.0 % Neutrophils # (Auto) 3.1 1.6-8.6 10 ^3/uL Lymphocytes # (Auto) 1.2 0.4-5.4 10 ^3/uL Monocytes # (Auto) 1.0 0-1.3 10 ^3/uL Eosinophils # (Auto) 0.1 0-0.8 10 ^3/uL Basophils # (Auto) 0.1 0-0.2 10 ^3/uL Nucleated Red Blood Cells 0.0 % Sodium Level 136 136-145 mmol/L Potassium Level 4.4 3.5-5.1 mmol/L Chloride Level 107 98-107 mmol/L Carbon Dioxide Level 17 L 20-31 mmol/L Anion Gap 12 5-15 Blood Urea Nitrogen 30 H 9-23 mg/dL Creatinine 3.44 H 0.550-1.02 mg/dL Glomerular Filtration Rate Calc 16 >90 mL/min BUN/Creatinine Ratio 8.7 L 10.0-20.0 Serum Glucose 91 74-106 mg/dL Calcium Level 8.5 L 8.7-10.4 mg/dL Phosphorus Level 4.6 2.4-5.1 mg/dL Magnesium Level 1.7 1.6-2.6 mg/dL Random Vancomycin Level 12.5 H 5-10 ug/mL Test 11/05/24 21:18 11/05/24 16:44 11/05/24 11:58 11/05/24 06:23 Range/Units POC Glucose 167 H 151 H 89 96 70-106 mg/dl Test 11/05/24 04:51 11/04/24 21:19 11/04/24 18:36 11/04/24 13:38 Range/Units White Blood Count 5.8 # 7.9 4.4-10.8 10^3/uL Red Blood Count 2.96 L 3.48 L 4.0-5.20 10^6/uL Hemoglobin 8.2 #L 9.7 L 12.2-16.2 g/dL Hematocrit 24.8 #L 29.8 L 36.0-46.0 % Mean Corpuscular Volume 83.7 85.7 80.0-100.0 fL Mean Corpuscular Hemoglobin 27.6 L 27.9 L 28.0-32.0 pg Mean Corpuscular Hemoglobin Concent 33.0 32.5 32.0-36.0 g/dL Red Cell Distribution Width 15.1 H 15.2 H 11.8-14.3 % Platelet Count 353 401 140-450 10^3/uL Mean Platelet Volume 7.4 7.6 6.9-10.8 fL Neutrophils (%) (Auto) 65.8 82.3 H 37.0-80.0 % Lymphocytes (%) (Auto) 14.5 7.6 L 10.0-50.0 % Monocytes (%) (Auto) 17.8 H 9.1 0.0-12.0 % Eosinophils (%) (Auto) 1.0 0.2 0.0-7.0 % Basophils (%) (Auto) 0.9 0.8 0.0-2.0 % Neutrophils # (Auto) 3.8 6.5 1.6-8.6 10 ^3/uL Lymphocytes # (Auto) 0.8 0.6 0.4-5.4 10 ^3/uL Monocytes # (Auto) 1.0 0.7 0-1.3 10 ^3/uL Eosinophils # (Auto) 0.1 0 0-0.8 10 ^3/uL Basophils # (Auto) 0 0.1 0-0.2 10 ^3/uL Nucleated Red Blood Cells 0.0 0.0 % Reticulocyte Count (auto) 1.43 0.5-1.5 % Sodium Level 136 139 136-145 mmol/L Potassium Level 4.2 4.3 3.5-5.1 mmol/L Chloride Level 109 H 109 H 98-107 mmol/L Carbon Dioxide Level 15 L 14 L 20-31 mmol/L Anion Gap 12 16 H 5-15 Blood Urea Nitrogen 34 #H 44 H 9-23 mg/dL Creatinine 3.62 H 4.25 H 0.550-1.02 mg/dL Glomerular Filtration Rate Calc 15 13 >90 mL/min BUN/Creatinine Ratio 9.4 L 10.4 10.0-20.0 Serum Glucose 95 196 H 74-106 mg/dL Calcium Level 8.4 L 8.5 L 8.7-10.4 mg/dL Total Bilirubin < 0.2 L 0.2 0.2-1.0 mg/dL Aspartate Amino Transferase (AST) < 8 L < 8 L 13-40 U/L Alanine Aminotransferase (ALT) < 9 < 9 7-40 U/L Alkaline Phosphatase 95 123 H 46-116 U/L Total Protein 7.1 8.0 5.7-8.2 g/dL Albumin 3.5 4.1 3.2-4.8 g/dL Random Vancomycin Level 8.1 5-10 ug/mL POC Glucose 170 H 192 H 70-106 mg/dl Erythrocyte Sedimentation Rate 103 H 0-20 mm/hr Prothrombin Time 11.6 9.3-11.8 sec Prothrombin Time INR 1.11 0.9-1.15 Activated Partial Thromboplast Time 34.5 24.5-34.5 SEC Hemoglobin A1c 7.0 H <5.7 % A1C Serum Osmolality 318 H 278-298 mOsm/kg Lactic Acid Level 0.6 0.4-2.0 mmol/L Iron Level 14 L 50-170 ug/dL Total Iron Binding Capacity 190 L 250-425 ug/dL Percent Iron Saturation 7.4 L 15-50 % Ferritin 219.8 10-291 ng/mL C-Reactive Protein High Sensitivity 13.78 H <1.0 mg/dL Vitamin B12 Level 397 211-911 pg/mL Beta-Hydroxybutyric Acid 0.717 H < 0.4 mmol/L Test 11/04/24 13:23 Range/Units Urine Color Light-yellow Yellow Urine Clarity Clear Clear Urine pH 5.5 5.0-9.0 Urine Specific [place] 1.012 1.001-1.035 Urine Protein 1+ H Negative Urine Ketones Negative Negative Urine Blood 1+ H Negative /uL Urine Nitrite Negative Negative Urine Bilirubin Negative Negative Urine Urobilinogen Normal Negative mg/dL Urine Leukocyte Esterase Negative Negative /uL Urine RBC <1 0 - 4 /hpf Urine Microscopic WBC 2 0-5 /HPF Urine Squamous Epithelial Cells Few <5 /hpf Urine Bacteria Few H None Seen /hpf Urine Osmolality 370 mOsm/kg Urine Creatinine 91.78 30.0-125.0 mg/dL Urine Protein/Creatinine Ratio 1.40 Urine Sodium 54 40-220 mmol/L Urine Glucose 4+ H Normal mg/dL Urine Total Protein 128.1 H 1-14 mg/dL Urine Opiates Screen Neg NEGATIVE Urine Fentanyl Screen Neg NEGATIVE Urine Barbiturates Screen Neg NEGATIVE Urine Phencyclidine Screen Neg NEGATIVE Urine Amphetamines Screen Neg NEGATIVE Urine Benzodiazepines Screen Neg NEGATIVE Urine Cocaine Screen Neg NEGATIVE Urine Cannabinoids Screen Neg NEGATIVE Assessment IMP: 1) Hemodynamically mediated SHELLEY/VMN 2) CKD stage IV possibly secondary to underlying diabetic kidney disease 3) right foot deep tissue infection/osteomyelitis 4) type 2 diabetes 5) history of hypertension REC: - discussed risks and benefits of PICC line placement inpatient agrees to proceed with PICC line. Please order for PICC line to the dominant arm, to ensure vein preservation of her nondominant arm for fistula creation if needed. - agree with currently holding Suresh or ARB therapy due to acute kidney injury. Can be challenged as an outpatient. - we will follow up in outpatient chronic kidney Disease Clinic discussed plan of care from Nephrology perspective with Mrs. Kirk who expressed understanding. Thank you for the consultation. Plan discussed with: Patient EVANS SAAVEDRA MD Nov 07, 2024 13:46
[2024-11-08] VITALS (8 sets, daily range): BP systolic 111–138; BP diastolic 78–90; PULSE 74–93; RESP 16–19; TEMP 97.6–98.4; O2SAT 96–100
[2024-11-08 07:49] LABS: Chloride 106 mmol/L (98-107); Potassium 4.8 mmol/L (3.5-5.1)
[2024-11-08 07:50] LABS: Anion Gap 10 (5-15)
[2024-11-08 07:55] LABS: BUN/Creatinine Ratio 10.0 (10.0-20.0); Glucose 76 mg/dL (74-106)
[2024-11-08 07:56] LABS: Blood Urea Nitrogen 31 mg/dL (9-23); Calcium 8.4 mg/dL (8.7-10.4); Carbon Dioxide 19 mmol/L (20-31); Sodium 135 mmol/L (136-145)
[2024-11-08 07:59] LABS: Hematocrit 25.1 % (36.0-46.0); Hemoglobin 8.4 g/dL (12.2-16.2)
[2024-11-08] MEDS: LIDOCAINE 1% (LOCAL ANESTH.) PF 5ml SDV ID ONE (11:14)
[2024-11-08] MEDS: POLYETHYLENE GLYCOL 17 GM PWDR PO ONE (11:53)
--- NOTE | 2024-11-08 14:10 | DVHPNRES ---
Progress Note Date Seen: Nov 08, 2024 Resident Creating Document: CRISTIN ESTEVEZ Medical Necessity Reason Pt with a Central, PICC or Fol: Yes The following are medically ne: PICC Line Subjective Review of Systems Patient is a 43-year-old female with past medical history of type 2 diabetes, hypertension, CKD, hyperlipidemia, anemia presented to [facility] ED with complaint of 3-day history of worsening right foot pain. She describes the pain as sharp, continuous, and severe (10/10), associated with nausea, vomiting, fever, and chills. She reports foul-smelling discharge and bleeding from the affected area. The patient continues to feel weak but denies chest pain, shortness of breath, dizziness, or headache. Upon arrival, a right ankle X-ray was performed, revealing soft tissue swelling and dislocation of the distal tibia and fibula. 11/06: Patient is seen today at bedside. Patient is currently postoperative day 1 after incision and drainage for foot osteomyelitis. Pain is mild, provided to the distal foot, 3/10. She states that today she is feeling better and stable. Pain is improved compared to yesterday, no new symptoms reported. 11/07: Patient was seen and examined at bedside. She stated having mild right foot pain, it is controlled with pain medication. She is currently tolerating diet. Denies any other associated symptoms. 11/08: Patient was seen and examined at bedside. On evaluation today, she states she is well, right foot pain is manageable with pain medication. She denies nausea vomiting fever and chills. Objective vital signs Vital Sign Date Time Temp Pulse Resp B/P (MAP) Pulse Ox O2 Delivery O2 Flow Rate FiO2 11/08/24 12:36 98.2 83 16 134/86 (102) 98 98.2 11/08/24 08:00 Room Air* 0 21 Total Intake and Output 11/07/24 11/07/24 11/08/24 15:00 23:00 07:00 Intake Total 240 ml 850 ml 591 ml Output Total 700 ml 300 ml Balance 240 ml 150 ml 291 ml medications Current Medications Medications Dose Ordered Sig/Margarita Route Start Time Stop Time Status Last Admin Dose Admin Sodium Chloride 10 ml Q8HR IV 11/04/24 22:00 11/08/24 06:48 10 ML Acetaminophen 325 mg Q4HP PRN PO 11/04/24 15:00 Acetaminophen/ Hydrocodone Bitart 1 tab Q4HP PRN PO 11/04/24 15:00 Ondansetron HCl 4 mg Q4HP PRN IV 11/04/24 15:00 11/08/24 08:31 4 MG Morphine Sulfate 2 mg Q4HPRN PRN IV 11/04/24 15:00 11/08/24 12:20 2 MG Cefepime HCl 50 ml @ 12.5 mls/hr DAILY IV 11/05/24 10:00 UNV Diagnostic Test (Pha) 1 strip ACHS 11/04/24 17:00 11/08/24 12:02 1 STRIP Insulin Human Regular ACHS SC 11/04/24 17:00 11/07/24 21:38 2 UNITS Dextrose 50 ml UD PRN IV 11/04/24 15:45 Famotidine 10 mg Q48H PO 11/04/24 22:00 11/06/24 21:27 10 MG Patient Own Medication 1 tab DAILY PO 11/05/24 10:00 UNV Cefepime HCl 0.5 gm/Dextrose 50 ml @ 12.5 mls/hr DAILY IV 11/05/24 10:00 11/08/24 08:14 12.5 MLS/HR Ferrous Sulfate 325 mg DAILY PO 11/05/24 10:00 11/08/24 08:13 325 MG Amlodipine Besylate 5 mg DAILY PO 11/05/24 10:00 11/08/24 08:13 5 MG Sodium Chloride 10 ml QSHIFT@10,22 IV 11/08/24 22:00 Examination General: Awake, alert, in mild distress due to foot pain HEENT: Head is normocephalic and atraumatic. Pupils are equal, round, and reactive to light. Extraocular muscles are intact. No nasal discharge. No facial trauma. Intraoral exam shows moist mucous membranes with no tonsillar enlargement or exudate. Neck: Supple with no cervical lymphadenopathy. Heart: Regular rate without murmur, rub, or gallop. Lungs: Equal breath sounds bilaterally with no wheezing, rales, or rhonchi. There is no chest wall tenderness or instability. Abdomen: No external sign of injury. Bowel sounds are present. Abdomen is soft, nontender. No rebound, no guarding, no rigidity. There are no palpable masses. There is no flank pain on exam. Extremities: Strong peripheral pulses. Feet appear deformed with Charcot features, right worse than left. Clean dressing of right ankle/foot Skin: No rash. Neurologic: Cranial nerves II-XII intact without motor, sensory, or cerebellar deficit, no asterixis. laboratory and microbiology Laboratory Tests 11/08/24 07:15 11/07/24 10:01 Test 11/08/24 07:15 Range/Units Serum Glucose 76 74-106 mg/dL Microbiology Date/Time Source Procedure Growth Status 11/05/24 14:05 Foot Right Gram Stain - Final Resulted 11/05/24 14:05 Foot Right Anaerobic Culture - Preliminary Resulted 11/05/24 14:05 Aerobic Culture - Final Staphylococcus aureus Pseudomonas aeruginosa Streptococcus Group B Resulted 11/04/24 13:38 Blood Blood Culture - Preliminary NO GROWTH AFTER 72 HOURS OF INCUBATION. Resulted Labs and/or images reviewed: Labs reviewed by me, Image(s) reviewed by me Problem List/Assessment/Plan Problem List/Assessment/Plan #Right diabetic foot infection #Right foot osteomyelitis of the distal tibia, talus, and calcaneus and 5th metatarsal head and 5th digit phalanges #midfoot charcot arthropathy -Podiatry consult -Wound consult -Incision and drainage of abscesses with bone biopsy of the right lateral ankle and right forefoot on 11/05/24 -Bone biopsy the right lateral ankle and right forefoot: Staphylococcus aureus, Pseudomonas aeruginosa, Streptococcus group B -Graft planned on 11/09/24, NPO after midnight -Right foot MRI: Significant osteomyelitis of the distal tibia, talus, and calcaneus. Significant osteomyelitis of the 5th metatarsal head and 5th digit phalanges. Soft tissue ulceration of the plantar lateral aspect of the forefoot. Chronic suspected ulcer versus sequelae prior surgical of the plantar medial aspect of the forefoot in the area of residual partially resected 1st metatarsal. Severe midfoot Charcot arthropathy. -Reviewed wound culture -Ordered ESR, CRP, -Start cefepime IV and vancomycin IV -Clindamycin -Morphine 2mg as needed for pain -IV fluids #Type 2 diabetes with hyperglycemia -Insulin Lantus -Insulin human regular -dextrose -Consistent carb diet -Beta hydroxybutyrate #SHELLEY on CKD due to VMN -Renal diet -IV fluids 500 mL bolus, continue with 100 mL/hour of LR -Kidney ultrasound: Increased echogenicity of both kidneys consistent with medical renal disease. No hydronephrosis of either kidney. -Urine sodium, urine creatinine, protein/creatinine clearance #Elevated anion gap metabolic acidosis, likely due to above #Hypertension, controlled -Amlodipine 5 mg p.o. q.d. #Anemia normocytic normochromic -Iron panel, ferritin, vitamin B12 -Stool occult blood test #GERD -Famotidine 20 mg p.o. b.i.d. Plan discussed with Dr. Rincon Plan discussed with: Patient, Other (RN) My Orders My Orders Orders - CRISTIN ESTEVEZ Procedure Category Date Status Time Complete Blood Count LAB 11/08/24 Logged 14:01 Basic Metabolic Panel LAB 11/08/24 Logged 14:01 Dietary Evaluation Review Comments: Nutrition Recommendation: 1) CCHO 60gm + cardiac diet 2) Giovani 1 pk daily 3) Refer Weekday Babysitter for diabetes education Expected Outcomes/Goals: Wound to improve Fu 3-5 days Date of Service: Nov 08, 2024 Billing Provider: TIFFANY RINCON MD Common Visit Codes: [id number] INP/OBS CARE(HIGH) Addendum Addendum Addendum I was physically present for the oneill portions of the service provided to patient by THE RESIDENT. I have reviewed the documentation, discussed the case with resident and agree with the resident's documentation except as noted. Also the patient's clinical case was discussed with the patient's nurse. This medical document was created using an electronic medical record system with computerized dictation system. Although this document has been carefully reviewed, there might still be some phonetic and typographical errors. These areas are purely typographical due to imperfections of the software programs, and do not reflect any compromise in the patient's medical care. Late signature. CRISTIN ESTEVEZ Nov 08, 2024 14:10 TIFFANY RINCON MD Nov 09, 2024 05:45
[2024-11-08 14:36] LABS: Hemoglobin 8.9 g/dL (12.2-16.2)
[2024-11-08 14:38] LABS: Hematocrit 27.1 % (36.0-46.0); Mean Corpuscular Hemoglobin 27.5 pg (28.0-32.0); Mean Corpuscular Volume 83.4 fL (80.0-100.0); Nucleated Red Blood Cells % 0.1 %
[2024-11-08 14:46] LABS: Chloride 103 mmol/L (98-107); Potassium 4.9 mmol/L (3.5-5.1)
[2024-11-08 14:47] LABS: Anion Gap 9 (5-15)
[2024-11-08 14:52] LABS: BUN/Creatinine Ratio 9.9 (10.0-20.0)
[2024-11-08 14:55] LABS: Blood Urea Nitrogen 31 mg/dL (9-23); Calcium 8.5 mg/dL (8.7-10.4); Carbon Dioxide 20 mmol/L (20-31); Glucose 201 mg/dL (74-106); Sodium 132 mmol/L (136-145)
[2024-11-08] MEDS: SODIUM CHLOR 0.9% PF (SALINE LOCK) 10ML VIAL/SYR IV SCH (21:55)
[2024-11-09] VITALS (8 sets, daily range): BP systolic 110–139; BP diastolic 66–90; PULSE 79–92; RESP 16–18; TEMP 97.9–98.9; O2SAT 17–98
--- NOTE | 2024-11-09 11:44 | DVHPN2 ---
Subjective Patient states that for the last three days she has been experiencing worsening right foot pain associated with post and blood discharge and foul odor. She also states experiencing chills, fevers, nausea and vomiting. She is still feeling weak. She currently denies any chest pain, shortness of breath, dizziness, headache. On arrival to the ED, patient had a right ankle x-ray which demonstrated soft tissue swelling, distal tibia and fibula dislocation. Changes from previous H/P or p: No Changes Eyes: No Pain, No Vision change, No Conjunctivae inflammation, No Eyelid inflammation, No Other, No Redness ENT: No Ear pain, No Ear discharge, No Nose pain, No Nose discharge, No Nose congestion, No Mouth pain, No Mouth swelling, No Throat pain, No Throat swelling, No Other Cardiovascular: No Chest Pain, No Palpitations, No Orthopnea, No Paroxysmal Noc. Dyspnea, No Edema, No Lt Headedness, No Other Respiratory: No Cough, No Dry, No Shortness of breath, No SOB with excertion, No Wheezing, No Hemoptysis, No Pleuritic Pain, No Sputum, No Other Gastrointestinal: No Nausea, No Vomiting, No Abdominal Pain, No Diarrhea, No Constipation, No Melena, No Hematochezia, No Other Genitourinary: No Dysuria, No Frequency, No Incontinence, No Hematuria, No Retention, No Other Musculoskeletal: No other, No neck pain, No shoulder pain, No arm pain, No back pain, No hand pain, No leg pain; foot pain Skin: No Rash; Lesions; No Jaundice, No Bruising, No Other Objective Vitals Vital Signs Date Time Temp Pulse Resp B/P (MAP) Pulse Ox O2 Delivery O2 Flow Rate FiO2 11/09/24 09:46 82 16 110/75 11/09/24 09:00 98.4 96 98.4 11/08/24 20:00 Room Air* 0 21 Intake/Output Intake and Output 11/09/24 07:00 Intake Total 3440 ml Output Total 1802 ml Balance 1638 ml Intake Oral 3440 ml Output Urine Total 1802 ml Exam Dermatological: Skin is dry with mild erythema and some maceration around the wound site No gross deformities noted Mild non-pitting edema present bilaterally Right lateral ankle wound with purulent drainage Right lateral foot wound with purulent drainage Vascular: Dorsalis pedis and posterior tibial pulses are 1+ bilaterally Capillary refill is under 2 seconds Skin temperature is warm bilaterally Neurologic: Protective sensation is absent on the plantar forefoot bilaterally Monofilament testing reveals decreased sensation in multiple plantar sites Musculoskeletal: Range of motion at the ankle and MTP joints is within normal limits. Strength is 5/5 in all tested muscle groups. Gait is antalgic due to offloading of the affected limb. Medications Current Medications Medications Dose Ordered Sig/Margarita Route Start Time Stop Time Status Last Admin Dose Admin Sodium Chloride 10 ml Q8HR IV 11/04/24 22:00 11/09/24 06:25 10 ML Acetaminophen 325 mg Q4HP PRN PO 11/04/24 15:00 Acetaminophen/ Hydrocodone Bitart 1 tab Q4HP PRN PO 11/04/24 15:00 Ondansetron HCl 4 mg Q4HP PRN IV 11/04/24 15:00 11/08/24 08:31 4 MG Morphine Sulfate 2 mg Q4HPRN PRN IV 11/04/24 15:00 11/09/24 09:46 2 MG Cefepime HCl 50 ml @ 12.5 mls/hr DAILY IV 11/05/24 10:00 UNV Diagnostic Test (Pha) 1 strip ACHS 11/04/24 17:00 11/09/24 06:25 1 STRIP Insulin Human Regular ACHS SC 11/04/24 17:00 11/08/24 17:27 4 UNITS Dextrose 50 ml UD PRN IV 11/04/24 15:45 Famotidine 10 mg Q48H PO 11/04/24 22:00 11/08/24 21:54 10 MG Patient Own Medication 1 tab DAILY PO 11/05/24 10:00 UNV Ferrous Sulfate 325 mg DAILY PO 11/05/24 10:00 11/09/24 09:38 325 MG Amlodipine Besylate 5 mg DAILY PO 11/05/24 10:00 11/09/24 09:39 5 MG Sodium Chloride 10 ml QSHIFT@10,22 IV 11/08/24 22:00 11/09/24 09:39 10 ML Cefepime HCl 50 ml @ 12.5 mls/hr DAILY IV 11/10/24 10:00 UNV Laboratory Results Laboratory Tests 11/08/24 14:25 Chemistry Test 11/08/24 14:25 Calcium Level 8.5 mg/dL (8.7-10.4) L Urinalysis Test 11/04/24 13:23 Urine Color Light-yellow (Yellow) Urine Clarity Clear (Clear) Urine pH 5.5 (5.0-9.0) Urine Specific [place] 1.012 (1.001-1.035) Urine Protein 1+ (Negative) H Urine Ketones Negative (Negative) Urine Blood 1+ /uL (Negative) H Urine Nitrite Negative (Negative) Urine Bilirubin Negative (Negative) Urine Urobilinogen Normal mg/dL (Negative) Urine Leukocyte Esterase Negative /uL (Negative) Urine RBC <1 /hpf (0 - 4) Urine Microscopic WBC 2 /HPF (0-5) Urine Squamous Epithelial Cells Few /hpf (<5) Urine Bacteria Few /hpf (None Seen) H Urine Osmolality 370 mOsm/kg Urine Creatinine 91.78 mg/dL (30.0-125.0) Urine Protein/Creatinine Ratio 1.40 Urine Sodium 54 mmol/L (40-220) Urine Glucose 4+ mg/dL (Normal) H Urine Total Protein 128.1 mg/dL (1-14) H Microbiology Microbiology Date/Time Source Procedure Growth Status 11/05/24 14:05 Foot Right Gram Stain - Final Complete 11/05/24 14:05 Foot Right Anaerobic Culture - Final Complete 11/05/24 14:05 Aerobic Culture - Final Staphylococcus aureus Pseudomonas aeruginosa Streptococcus Group B Complete 11/04/24 13:38 Blood Blood Culture - Preliminary NO GROWTH AFTER 72 HOURS OF INCUBATION. Resulted Assessment/Plan Assessment/Plan ASSESSMENT: Patient is a 43 year old seen on the floor follow up s/p foot I&D PLAN: - The patients chart was reviewed, clinical findings were discussed with the patient, the etiologies of the conditions were discussed in detail, and a treatment plan was agreed to at this time, with both oral and written instructions provided. - reviewed advanced imaging - reviewed all of the labs and pathology - discussed plan is to perform a subsequent incision and drainage - patient has been NPO since midnight - take him to the OR today - can weightbear as tolerated in postoperative shoe All questions were answered and concerns addressed to the patient's satisfaction. The patient was given the phone number to the clinic and was told how to make contact with the clinic should any concerns or questions arise. Patient understands that if any questions or concerns arise prior to the next appointment, we should be contacted immediately. FOLLOW-UP: Continue to follow while inpatient Plan discussed with: Patient My Orders Orders - GARO BAEZA DPM Procedure Category Date Status Time Npo (Nothing By DIET 11/09/24 Transmitted Mouth) Diet Breakfast Obtain Consent For: ORDERS 11/08/24 Transmitted 12:33 Beta Hcg, Quantitative LAB 11/09/24 Logged 11:03 Problem List: (1) Diabetic foot ulcer (2) Urinary tract infection (3) Acute renal failure (4) Anemia (5) Colitis (6) Hyponatremia (7) Leukocytosis (8) Leukocytosis, unspecified (9) Septic arthritis of foot (10) Thrombocytosis, unspecified (11) Osteomyelitis of right leg (12) Acute osteomyelitis of right foot (13) Anemia, unspecified (14) Non-healing ulcer of ankle (15) DM type 2 with diabetic foot ulcer (16) Acute renal injury (17) Stage 4 chronic kidney disease (18) Non-healing ulcer of right foot (19) Diabetes mellitus with hyperglycemia (20) 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 Visit Coding Podiatry Date of Service if different f: Nov 09, 2024 Billing Provider: GARO BAEZA DPM Podiatry Common Visit Codes: [id number] INP/OBS CARE(HIGH) GARO BAEZA DPM Nov 09, 2024 11:44
[2024-11-09] MEDS ORDERED: GLYCOPYRROLATE 0.2 MG/ML 1ML VIAL ONE (11:56)
[2024-11-09] MEDS ORDERED: PROPOFOL 10 MG/ML 20 ML IV ONE ×2 (11:56→12:59)
[2024-11-09] MEDS ORDERED: LIDOCAINE 1% INJ PF 5ML AMP ONE (11:56)
[2024-11-09] MEDS ORDERED: ONDANSETRON HCL 4 MG/2 ML VIAL ONE ×2 (11:56→12:59)
[2024-11-09] MEDS ORDERED: KETOROLAC TROMETH 30 MG/ML 1ML VIAL ONE (11:56)
--- NOTE | 2024-11-09 12:30 | DVHPNRES ---
Progress Note Date Seen: Nov 09, 2024 Resident Creating Document: CRISTIN ESTEVEZ Medical Necessity Reason Pt with a Central, PICC or Fol: Yes The following are medically ne: PICC Line Subjective Review of Systems Patient is a 43-year-old female with past medical history of type 2 diabetes, hypertension, CKD, hyperlipidemia, anemia presented to [facility] ED with complaint of 3-day history of worsening right foot pain. She describes the pain as sharp, continuous, and severe (10/10), associated with nausea, vomiting, fever, and chills. She reports foul-smelling discharge and bleeding from the affected area. The patient continues to feel weak but denies chest pain, shortness of breath, dizziness, or headache. Upon arrival, a right ankle X-ray was performed, revealing soft tissue swelling and dislocation of the distal tibia and fibula. 11/06: Patient is seen today at bedside. Patient is currently postoperative day 1 after incision and drainage for foot osteomyelitis. Pain is mild, provided to the distal foot, 3/10. She states that today she is feeling better and stable. Pain is improved compared to yesterday, no new symptoms reported. 11/07: Patient was seen and examined at bedside. She stated having mild right foot pain, it is controlled with pain medication. She is currently tolerating diet. Denies any other associated symptoms. 11/08: Patient was seen and examined at bedside. On evaluation today, she states she is well, right foot pain is manageable with pain medication. She denies nausea vomiting fever and chills. 11/09: Patient was seen and examined at bedside. Overnight events were reviewed. The patient underwent right foot soft tissue reconstruction with placement of a 5 x 5 bilayer Integra graft, which was well tolerated. Postoperatively, the patient was appropriate with stable vital signs. The surgical dressing to the right foot was clean, dry, and intact, and the patient was able to move both lower extremities without difficulty. Objective vital signs Vital Sign Date Time Temp Pulse Resp B/P (MAP) Pulse Ox O2 Delivery O2 Flow Rate FiO2 11/09/24 09:46 82 16 110/75 11/09/24 09:00 98.4 96 98.4 11/08/24 20:00 Room Air* 0 21 Total Intake and Output 11/08/24 11/08/24 11/09/24 15:00 23:00 07:00 Intake Total 240 ml 800 ml 2400 ml Output Total 800 ml 1000 ml 2 ml Balance -560 ml -200 ml 2398 ml medications Current Medications Medications Dose Ordered Sig/Margarita Route Start Time Stop Time Status Last Admin Dose Admin Sodium Chloride 10 ml Q8HR IV 11/04/24 22:00 11/09/24 06:25 10 ML Acetaminophen 325 mg Q4HP PRN PO 11/04/24 15:00 Acetaminophen/ Hydrocodone Bitart 1 tab Q4HP PRN PO 11/04/24 15:00 Ondansetron HCl 4 mg Q4HP PRN IV 11/04/24 15:00 11/08/24 08:31 4 MG Morphine Sulfate 2 mg Q4HPRN PRN IV 11/04/24 15:00 11/09/24 09:46 2 MG Cefepime HCl 50 ml @ 12.5 mls/hr DAILY IV 11/05/24 10:00 UNV Diagnostic Test (Pha) 1 strip ACHS 11/04/24 17:00 11/09/24 06:25 1 STRIP Insulin Human Regular ACHS SC 11/04/24 17:00 11/08/24 17:27 4 UNITS Dextrose 50 ml UD PRN IV 11/04/24 15:45 Famotidine 10 mg Q48H PO 11/04/24 22:00 11/08/24 21:54 10 MG Patient Own Medication 1 tab DAILY PO 11/05/24 10:00 UNV Ferrous Sulfate 325 mg DAILY PO 11/05/24 10:00 11/09/24 09:38 325 MG Amlodipine Besylate 5 mg DAILY PO 11/05/24 10:00 11/09/24 09:39 5 MG Sodium Chloride 10 ml QSHIFT@10,22 IV 11/08/24 22:00 11/09/24 09:39 10 ML Cefepime HCl 50 ml @ 12.5 mls/hr DAILY IV 11/10/24 10:00 Examination General: Awake, alert, in mild distress due to foot pain HEENT: Head is normocephalic and atraumatic. Pupils are equal, round, and reactive to light. Extraocular muscles are intact. No nasal discharge. No facial trauma. Intraoral exam shows moist mucous membranes with no tonsillar enlargement or exudate. Neck: Supple with no cervical lymphadenopathy. Heart: Regular rate without murmur, rub, or gallop. Lungs: Equal breath sounds bilaterally with no wheezing, rales, or rhonchi. There is no chest wall tenderness or instability. Abdomen: No external sign of injury. Bowel sounds are present. Abdomen is soft, nontender. No rebound, no guarding, no rigidity. There are no palpable masses. There is no flank pain on exam. Extremities: Strong peripheral pulses. Feet appear deformed with Charcot features, right worse than left. Clean dressing of right ankle/foot Skin: No rash. Neurologic: Cranial nerves II-XII intact without motor, sensory, or cerebellar deficit, no asterixis. laboratory and microbiology Laboratory Tests 11/08/24 14:25 Test 11/08/24 14:25 Range/Units Serum Glucose 201 H 74-106 mg/dL Microbiology Date/Time Source Procedure Growth Status 11/05/24 14:05 Foot Right Gram Stain - Final Complete 11/05/24 14:05 Foot Right Anaerobic Culture - Final Complete 11/05/24 14:05 Aerobic Culture - Final Staphylococcus aureus Pseudomonas aeruginosa Streptococcus Group B Complete 11/04/24 13:38 Blood Blood Culture - Preliminary NO GROWTH AFTER 72 HOURS OF INCUBATION. Resulted Labs and/or images reviewed: Labs reviewed by me, Image(s) reviewed by me Problem List/Assessment/Plan Problem List/Assessment/Plan #Right diabetic foot infection #Right foot osteomyelitis of the distal tibia, talus, and calcaneus and 5th metatarsal head and 5th digit phalanges #midfoot charcot arthropathy -Podiatry consult -Wound consult -Incision and drainage of abscesses with bone biopsy of the right lateral ankle and right forefoot on 11/05/24 -Bone biopsy the right lateral ankle and right forefoot: Staphylococcus aureus, Pseudomonas aeruginosa, Streptococcus group B -Right foot soft tissue reconstruction with placement of a 5 x 5 bilayer Integra graft on 11/09/24 -Right foot MRI: Significant osteomyelitis of the distal tibia, talus, and calcaneus. Significant osteomyelitis of the 5th metatarsal head and 5th digit phalanges. Soft tissue ulceration of the plantar lateral aspect of the forefoot. Chronic suspected ulcer versus sequelae prior surgical of the plantar medial aspect of the forefoot in the area of residual partially resected 1st metatarsal. Severe midfoot charcot arthropathy. 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 No hydronephrosis of either kidney. -Urine sodium, urine creatinine, protein/creatinine clearance #Elevated anion gap metabolic acidosis, likely due to above #Hypertension, controlled -Amlodipine 5 mg p.o. q.d. #Anemia normocytic normochromic -Iron panel, ferritin, vitamin B12 -Stool occult blood test #GERD -Famotidine 20 mg p.o. b.i.d. Goals of care: Full code, discussed for >16 minutes on 11/09/24 Plan discussed with patient Plan discussed with Dr. Garcia Plan discussed with: Patient Dietary Evaluation Review Comments: Nutrition Recommendation: 1) CCHO 60gm + cardiac diet 2) Giovani 1 pk daily 3) Refer Supervisor [employer] for diabetes education Expected Outcomes/Goals: Wound to improve Fu 3-5 days Date of Service: Nov 09, 2024 Billing Provider: JAMARCUS GARCIA MD Common Visit Codes: [id number] INP/OBS CARE(HIGH) CRISTIN ESTEVEZ RESIDENT Nov 09, 2024 12:30 JAMARCUS GARCIA MD Nov 10, 2024 18:47
[2024-11-09] MEDS ORDERED: fentaNYL CITRATE 100 MCG/2 ML VL ONE (12:58)
[2024-11-09] MEDS ORDERED: MIDAZOLAM HCL 2MG/2ML 2ml VIAL (1mg/ml) ONE (12:58)
[2024-11-09] MEDS ORDERED: SODIUM CHLORIDE LOCK 10 ML ONE (12:58)
[2024-11-09] MEDS ORDERED: KETAMINE 50mg/ML 1ml syringe ONE (12:58)
[2024-11-09] MEDS: LIDOCAINE 1% HCL (LOCAL ANESTH.) INJ 20ML MDV ONE (13:10)
[2024-11-09] MEDS ORDERED: BUPIVACAINE HCL 0 ML ONE (13:12)
--- NOTE | 2024-11-09 13:26 | DVHOP2 ---
Operative Report - 2 Report Details Date: 11/09/24 Preop Diagnosis: 1. Right foot osteomyelitis 2. Right foot abscess 3. Right foot cellulitis 4. Right foot charcot Postop Diagnosis: Same as preop Surgeon: Kashif Baeza MD Anesthesiologist: See anesthesia Anesthesia: Mac Implant: 5 x 5 bilayer Integra graft Consent: The patient was informed of the risks and benefits of the procedure. These include but are not limited to complications of anesthesia, postoperative infection, incomplete relief of symptoms, recurrence of symptoms, damage to blood vessels, nerves and tendons, deep venous thrombosis, pulmonary embolism and possible need for repeat surgery in the future. Complications: None Estimated Blood Loss: Minimal Fluids: See anesthesia Findings: Consistent with diagnosis Indications for Surgery: Worsening foot wound Name of Procedure Performed 1. Right ankle I&D to bone (71842) 2. Right foot I&D to bone (46655) 3. Right ankle placement of graft (04869) 4. Right foot delayed closure (68564) 5. Right foot diabetic flap (51774) 6. Right foot KRYSTAL (68319) Procedure Details Procedure Details: PRE-PROCEDURE INFORMATION: In the pre-op holding area, the extremity to be operated on was clearly marked and the patient verified correct laterality of the marking. The patient was transferred to the OR table and placed in a supine position. A timeout was performed in which identification of the correct zarina ent, procedure, location, and materials was done. The right foot and leg were prepped and draped in normal sterile fashion. DESCRIPTION OF PROCEDURE: Attention was directed to the right lateral ankle where area of fluctuance was noted. An incision was made over this area and was deepened through blunt dissection. The incision was deepened to the level of abscess and bone. Care was taken to the dissection to avoid any neurovascular and tendinous structures. The incision was deepened to the bone, and the abscess appeared to be purulent fluid consistent with pus. The cortices of the bone was then removed with rongeur an all necrotic tissue. After the abscess was drained, the area was irrigated with 3 L normal saline using cysto tubing. A 5 x 5 Integra bilayer graft was then placed with ann. Dressed with Xeroform, 4x4s, ABD, Suresh. Attention was directed to the right forefoot where previous incision was made. An incision was made over this area and was deepened through blunt dissection. The incision was deepened to the level of abscess and bone. Care was taken to the dissection to avoid any neurovascular and tendinous structures. The incision was deepened to the bone, and the abscess appeared to be purulent fluid consistent with pus. The cortices of the bone was then removed with rongeur an all necrotic tissue. After the abscess was drained, the area was irrigated with 3 L normal saline using cysto tubing. Due to the soft tissue deficit, rotational advancement flap was designed medially to laterally and elevated preserving vascularity. A delayed closure was then performed using 2-0 nylon after was deemed appropriate with no longer concern for infection. POSTOPERATIVE INFORMATION: The patient tolerated the above noted procedure and anesthesia well and was transferred to the PACU with vital signs stable, and vascular status intact with capillary refill intact to all digits. Patient can discharged home with 6 weeks of IV antibiotics. Patient can weightbear as tolerated in a boot. Condition Good Disposition Still a Patient Visit Coding Podiatry Date of Service if different f: Nov 09, 2024 Billing Provider: KASHIF BAEZA DPM Podiatry Common Visit Codes: PROCEDURE ONLY KASHIF BAEZA DPM Nov 09, 2024 13:26
[2024-11-09] MEDS ORDERED: HYDROmorphone HCL 2 MG/ML VL/or syr IV PRN ×2 (13:30)
[2024-11-09] MEDS ORDERED: KETOROLAC TROMETH 30 MG/ML 1ML VIAL IV ONE (13:30)
[2024-11-09] MEDS ORDERED: MORPHINE SULFATE 4 MG/ML SYR/VIAL IV PRN (13:30)
[2024-11-09] MEDS ORDERED: MORPHINE SULFATE INJ 2 MG/ml SYRG IV PRN (13:30)
[2024-11-09] MEDS ORDERED: ACCU-CHEK COMFORT CURVE STRIP VI ONE (13:30)
[2024-11-09] MEDS: METOCLOPRAMIDE HCL 5MG/ml INJ 2ml VIAL IV PRN (13:34)
[2024-11-09] MEDS ORDERED: METOCLOPRAMIDE HCL 5MG/ml INJ 2ml VIAL ONE (13:36)
[2024-11-09] MEDS ORDERED: POLYETHYLENE GLYCOL 17 GM PWDR PO PRN (14:30)
[2024-11-09] MEDS: MORPHINE SULFATE 4 MG/ML SYR/VIAL IV PRN (16:48)
--- NOTE | 2024-11-09 21:33 | DVHPN2 ---
Progress Note Date Seen: Nov 09, 2024 Medical Necessity Reason Pt with a Central, PICC or Fol: Yes The following are medically ne: PICC Line Subjective Patient reports: No new complaints Review of Systems: HEENT:Normal, CVS:Normal, RESPIRATORY:Normal, GI:Normal, :Normal, MSK:Normal, NEURO:Normal Objective vital signs Vital Sign Date Time Temp Pulse Resp B/P (MAP) Pulse Ox O2 Delivery O2 Flow Rate FiO2 11/09/24 21:00 98.2 87 121/66 (84) 17 98.2 11/09/24 20:00 Room Air* 0 21 11/09/24 17:18 18 Total Intake and Output 11/08/24 11/08/24 11/09/24 15:00 23:00 07:00 Intake Total 240 ml 800 ml 2400 ml Output Total 800 ml 1000 ml 2 ml Balance -560 ml -200 ml 2398 ml medications Current Medications Medications Dose Ordered Sig/Margarita Route Start Time Stop Time Status Last Admin Dose Admin Sodium Chloride 10 ml Q8HR IV 11/04/24 22:00 11/09/24 13:38 10 ML Acetaminophen 325 mg Q4HP PRN PO 11/04/24 15:00 Acetaminophen/ Hydrocodone Bitart 1 tab Q4HP PRN PO 11/04/24 15:00 Ondansetron HCl 4 mg Q4HP PRN IV 11/04/24 15:00 11/08/24 08:31 4 MG Cefepime HCl 50 ml @ 12.5 mls/hr DAILY IV 11/05/24 10:00 UNV Diagnostic Test (Pha) 1 strip ACHS 11/04/24 17:00 11/09/24 17:00 1 STRIP Insulin Human Regular ACHS SC 11/04/24 17:00 11/09/24 17:44 2 UNITS Dextrose 50 ml UD PRN IV 11/04/24 15:45 Famotidine 10 mg Q48H PO 11/04/24 22:00 11/08/24 21:54 10 MG Patient Own Medication 1 tab DAILY PO 11/05/24 10:00 UNV Ferrous Sulfate 325 mg DAILY PO 11/05/24 10:00 11/09/24 09:38 325 MG Sodium Chloride 10 ml QSHIFT@, IV 11/08/24 22:00 11/09/24 09:39 10 ML Cefepime HCl 50 ml @ 12.5 mls/hr DAILY IV 11/10/24 10:00 Amlodipine Besylate 10 mg DAILY PO 11/10/24 10:00 Polyethylene Glycol 17 gm DAILYPRN PRN PO 11/09/24 14:30 Morphine Sulfate 2 mg Q4HPRN PRN IV 11/09/24 16:45 11/09/24 16:48 2 MG laboratory and microbiology Laboratory Tests 11/08/24 14:25 Test 11/08/24 14:25 Range/Units Serum Glucose 201 H 74-106 mg/dL Microbiology Date/Time Source Procedure Growth Status 11/05/24 14:05 Foot Right Gram Stain - Final Complete 11/05/24 14:05 Foot Right Anaerobic Culture - Final Complete 11/05/24 14:05 Aerobic Culture - Final Staphylococcus aureus Pseudomonas aeruginosa Streptococcus Group B Complete 11/04/24 13:38 Blood Blood Culture - Final NO GROWTH AFTER 5 DAYS OF INCUBATION. Complete Problem List/Assessment/Plan Problem List/Assessment/Plan 1) Hemodynamically mediated SHELLEY/VMN 2) CKD stage IV possibly secondary to underlying diabetic kidney disease 3) right foot deep tissue infection/osteomyelitis 4) type 2 diabetes 5) history of hypertension recs Renal function stable We will follow closely IV antibiotics renally dosed to GFR Plan discussed with: Patient Dietary Evaluation Review Comments: Nutrition Recommendation: 1) CCHO 60gm + cardiac diet 2) Giovani 1 pk daily 3) Refer Practice Clinician for diabetes education Expected Outcomes/Goals: Wound to improve Fu 3-5 days EBONY HERNANDEZ MD Nov 09, 2024 21:33
[2024-11-10 01:00] VITALS: BP 105/65; PULSE 80; RESP 17; TEMP 98.3; O2SAT 94
[2024-11-10 05:00] VITALS: BP 112/70; PULSE 80; RESP 17; TEMP 98.2; O2SAT 94
[2024-11-10 06:04] LABS: Hematocrit 24.9 % (36.0-46.0); Hemoglobin 8.2 g/dL (12.2-16.2); Mean Corpuscular Hemoglobin 27.4 pg (28.0-32.0); Mean Corpuscular Volume 82.7 fL (80.0-100.0); Nucleated Red Blood Cells % 0.1 %
[2024-11-10 06:22] LABS: Chloride 106 mmol/L (98-107); Potassium 4.8 mmol/L (3.5-5.1); Sodium 137 mmol/L (136-145)
[2024-11-10 06:24] LABS: Anion Gap 10 (5-15); Carbon Dioxide 21 mmol/L (20-31)
[2024-11-10 06:26] LABS: Calcium 8.3 mg/dL (8.7-10.4)
[2024-11-10 06:29] LABS: BUN/Creatinine Ratio 11.0 (10.0-20.0)
[2024-11-10 06:30] LABS: Blood Urea Nitrogen 34 mg/dL (9-23); Glucose 114 mg/dL (74-106)
[2024-11-10 08:00] VITALS: PULSE 91; RESP 17; O2SAT 98
[2024-11-10 09:00] VITALS: BP 119/74; PULSE 91; RESP 17; TEMP 98.3; O2SAT 98
[2024-11-10] MEDS: CEFEPIME 1GM/50ML 50 ML IV SCH (09:06)
[2024-11-10 13:00] VITALS: BP 131/82; PULSE 78; RESP 17; TEMP 97.9; O2SAT 99
[2024-11-10 17:00] VITALS: BP 149/96; PULSE 84; RESP 17; TEMP 98; O2SAT 99
--- NOTE | 2024-11-10 18:54 | DVHDSRES ---
Discharge Summary Date of Admission Resident Creating Document: CRISTIN ESTEVEZ RESIDENT Nov 04, 2024 at 14:58 Date of Discharge: Nov 10, 2024 Admitting Diagnosis Right foot pain Labs/Diagnostic Data: Laboratory Results Test 11/10/24 17:12 11/10/24 05:25 11/09/24 11:41 11/07/24 10:01 POC Glucose 91 mg/dl (70-106) White Blood Count 5.6 10^3/uL (4.4-10.8) Red Blood Count 3.01 10^6/uL (4.0-5.20) Hemoglobin 8.2 g/dL (12.2-16.2) Hematocrit 24.9 % (36.0-46.0) Mean Corpuscular Volume 82.7 fL (80.0-100.0) Mean Corpuscular Hemoglobin 27.4 pg (28.0-32.0) Mean Corpuscular Hemoglobin Concent 33.1 g/dL (32.0-36.0) Red Cell Distribution Width 14.2 % (11.8-14.3) Platelet Count 441 10^3/uL (140-450) Mean Platelet Volume 7.1 fL (6.9-10.8) Neutrophils (%) (Auto) 53.4 % (37.0-80.0) Lymphocytes (%) (Auto) 29.4 % (10.0-50.0) Monocytes (%) (Auto) 11.9 % (0.0-12.0) Eosinophils (%) (Auto) 4.2 % (0.0-7.0) Basophils (%) (Auto) 1.1 % (0.0-2.0) Neutrophils # (Auto) 3.0 10 ^3/uL (1.6-8.6) Lymphocytes # (Auto) 1.7 10 ^3/uL (0.4-5.4) Monocytes # (Auto) 0.7 10 ^3/uL (0-1.3) Eosinophils # (Auto) 0.2 10 ^3/uL (0-0.8) Basophils # (Auto) 0.1 10 ^3/uL (0-0.2) Nucleated Red Blood Cells 0.1 % Sodium Level 137 mmol/L (136-145) Potassium Level 4.8 mmol/L (3.5-5.1) Chloride Level 106 mmol/L (98-107) Carbon Dioxide Level 21 mmol/L (20-31) Anion Gap 10 (5-15) Blood Urea Nitrogen 34 mg/dL (9-23) Creatinine 3.09 mg/dL (0.550-1.02) Glomerular Filtration Rate Calc 19 mL/min (>90) BUN/Creatinine Ratio 11.0 (10.0-20.0) Serum Glucose 114 mg/dL (74-106) Calcium Level 8.3 mg/dL (8.7-10.4) Beta HCG, Quantitative 0.6 mIU/mL (1.5-4.2) Uric Acid 6.8 mg/dL (3.1-7.8) Creatine Kinase 17 U/L (34-145) Random Vancomycin Level 16.4 ug/mL (5-10) Test 11/06/24 04:56 11/05/24 04:51 11/04/24 13:38 11/04/24 13:23 Phosphorus Level 4.6 mg/dL (2.4-5.1) Magnesium Level 1.7 mg/dL (1.6-2.6) Reticulocyte Count (auto) 1.43 % (0.5-1.5) Total Bilirubin < 0.2 mg/dL (0.2-1.0) Aspartate Amino Transferase (AST) < 8 U/L (13-40) Alanine Aminotransferase (ALT) < 9 U/L (7-40) Alkaline Phosphatase 95 U/L (46-116) Total Protein 7.1 g/dL (5.7-8.2) Albumin 3.5 g/dL (3.2-4.8) Erythrocyte Sedimentation Rate 103 mm/hr (0-20) Prothrombin Time 11.6 sec (9.3-11.8) Prothrombin Time INR 1.11 (0.9-1.15) Activated Partial Thromboplast Time 34.5 SEC (24.5-34.5) Hemoglobin A1c 7.0 % A1C (<5.7) Serum Osmolality 318 mOsm/kg (278-298) Lactic Acid Level 0.6 mmol/L (0.4-2.0) Iron Level 14 ug/dL (50-170) Total Iron Binding Capacity 190 ug/dL (250-425) Percent Iron Saturation 7.4 % (15-50) Ferritin 219.8 ng/mL (10-291) C-Reactive Protein High Sensitivity 13.78 mg/dL (<1.0) Vitamin B12 Level 397 pg/mL (211-911) Beta-Hydroxybutyric Acid 0.717 mmol/L (< 0.4) Urine Color Light-yellow (Yellow) Urine Clarity Clear (Clear) Urine pH 5.5 (5.0-9.0) Urine Specific Benton 1.012 (1.001-1.035) Urine Protein 1+ (Negative) Urine Ketones Negative (Negative) Urine Blood 1+ /uL (Negative) Urine Nitrite Negative (Negative) Urine Bilirubin Negative (Negative) Urine Urobilinogen Normal mg/dL (Negative) Urine Leukocyte Esterase Negative /uL (Negative) Urine RBC <1 /hpf (0 - 4) Urine Microscopic WBC 2 /HPF (0-5) Urine Squamous Epithelial Cells Few /hpf (<5) Urine Bacteria Few /hpf (None Seen) Urine Osmolality 370 mOsm/kg Urine Creatinine 91.78 mg/dL (30.0-125.0) Urine Protein/Creatinine Ratio 1.40 Urine Sodium 54 mmol/L (40-220) Urine Glucose 4+ mg/dL (Normal) Urine Total Protein 128.1 mg/dL (1-14) Urine Opiates Screen Neg (NEGATIVE) Urine Fentanyl Screen Neg (NEGATIVE) Urine Barbiturates Screen Neg (NEGATIVE) Urine Phencyclidine Screen Neg (NEGATIVE) Urine Amphetamines Screen Neg (NEGATIVE) Urine Benzodiazepines Screen Neg (NEGATIVE) Urine Cocaine Screen Neg (NEGATIVE) Urine Cannabinoids Screen Neg (NEGATIVE) Other Laboratory Tests 11/10/24 05:25 Brief Hx & Hospital Course: Patient is a 43-year-old female with past medical history of type 2 diabetes, hypertension, chronic kidney disease, hyperlipidemia, and anemia who presented to [facility] ED with a 3-day history of worsening right foot pain. She described the pain as sharp, continuous, and severe (10/10), accompanied by nausea, vomiting, fever, chills, foul-smelling discharge, and bleeding from the affected area. She denied chest pain, shortness of breath, dizziness, or headache. Imaging revealed soft tissue swelling and dislocation of the distal tibia and fibula. On 11/05/24, the patient underwent incision and drainage of abscesses with bone biopsy of the right lateral ankle and forefoot, which grew Staphylococcus aureus, Pseudomonas aeruginosa, and Streptococcus group B. MRI confirmed extensive osteomyelitis involving the distal tibia, talus, calcaneus, 5th metatarsal head, and 5th digit phalanges, along with soft tissue ulceration and severe midfoot Charcot arthropathy. Postoperatively, the patient reported gradual improvement in symptoms and pain control. On 11/09/24, she underwent right foot soft tissue reconstruction with placement of a 5 x 5 bilayer Integra graft, which was well tolerated. Throughout her hospital stay, she remained clinically stable, tolerated diet, and denied recurrence of systemic symptoms. She was managed with IV cefepime, insulin therapy for hyperglycemia, IV fluids for SHELLEY on CKD, and antihypertensives. Discharge planning includes continuation of IV antibiotics via home health for 6 weeks, insulin regimen, and follow-up with PCP, podiatry, and nephrology. Physical examination General: Awake, alert, in mild distress due to foot pain HEENT: Head is normocephalic and atraumatic. Pupils are equal, round, and reactive to light. Extraocular muscles are intact. No nasal discharge. No facial trauma. Intraoral exam shows moist mucous membranes with no tonsillar enlargement or exudate. Neck: Supple with no cervical lymphadenopathy. Heart: Regular rate without murmur, rub, or gallop. Lungs: Equal breath sounds bilaterally with no wheezing, rales, or rhonchi. There is no chest wall tenderness or instability. Abdomen: No external sign of injury. Bowel sounds are present. Abdomen is soft, nontender. No rebound, no guarding, no rigidity. There are no palpable masses. There is no flank pain on exam. Extremities: Strong peripheral pulses. Feet appear deformed with Charcot features, right worse than left. Clean dressing of right ankle/foot Skin: No rash. Neurologic: Cranial nerves II-XII intact without motor, sensory, or cerebellar deficit, no asterixis. Operations or Procedures PATIENT: LAINE DACOSTA ACCT: [id number] UNIT: [id number] : 1980 LOC: [facility] ROOM / BED: 0239 / A AGE / SEX: 43 / F ADM STATUS: ADM IN SERVICE 1536 ORDERING PHYSICIAN: LAURIE CONTRERAS RESIDENT PROCEDURE(s): KIDUS - KIDNEY REASON: shelley ORDER NUMBER(s): [id number], ACCESSION NUMBER(s): [id number] INDICATION: Acute kidney injury TECHNIQUE: Multiple real-time sonographic images of the kidneys and bladder were obtained. COMPARISON: US PELVIC on DOS: 11/18/22, US KIDNEY on DOS: 11/10/22 FINDINGS: The right kidney measures 8.2 cm in length, which is normal in size. There is increased echogenicity of the right kidney. No hydronephrosis. The left kidney measures 8.3 cm in length, which is normal in size. There is increased echogenicity of the left kidney. No hydronephrosis. No intraluminal mass is seen in the bladder. At the time of examination, the bladder volume is approximately 196 cc. IMPRESSION: Increased echogenicity of both kidneys consistent with medical renal disease. No hydronephrosis of either kidney. PATIENT: LAINE DACOSTA ACCT: [id number] UNIT: [id number] : 1980 LOC: [facility] ROOM / BED: [facility]9 / A AGE / SEX: 43 / F ADM STATUS: ADM IN SERVICE 1458 ORDERING PHYSICIAN: LAURIE CONTRERAS RESIDENT PROCEDURE(s): RFTMR - MRI R FOOT WO CONTRAST REASON: osteomyelitis ORDER NUMBER(s): [id number], ACCESSION NUMBER(s): [id number] EXAM: MRI MRI R FOOT WO CONTRAST INDICATION: osteomyelitis TECHNIQUE: Multiplanar, multisequence imaging of the right foot without contrast COMPARISON: XY R ANKLE 2 VIEW XRAY on DOS: 11/04/24 FINDINGS: BONES: Significant anatomic deformity of the tibiotalar articulation with chronic lateral dislocation of the calcaneus relative to the distal tibia. Abnormal signal likely compatible with osteomyelitis of the primarily medial aspect of the distal tibia corroborating prior radiographic findings. Stability appearance extending along the intramedullary canal of the distal tibia which may reflect infection insinuating along the however version canals. Early suspected osteomyelitis of the central aspect of the calcaneus. Abnormal signal likely compatible with osteomyelitis of theresidual medially displaced talus. Severe midfoot charcot arthropathy. Abnormal intramedullary signal of the 4th metatarsal diaphysis. Correlate for sequelae of stress reaction. Significant osteomyelitis of the 5th metatarsal head and 5th digit phalanges which appear to be dislocated dorsally. The toes appear to be dorsally subluxed of the metatarsophalangeal joints soft tissue ulceration of the plantar lateral aspect of the forefoot. Chronic suspected ulcer versus sequelae prior surgical of the plantar medial aspect of the forefoot in the area of residual partially resected 1st metatarsal MUSCLES: Severe fatty atrophy of the intrinsic musculature TENDONS: No definitive infectious tenosynovitis LIGAMENTS: Limited evaluation JOINT SPACES: No joint effusion. NEUROVASCULAR: Normal. OTHER: None. IMPRESSION: 1. Significant osteomyelitis of the distal tibia, talus, and calcaneus. 2. Significant osteomyelitis of the 5th metatarsal head and 5th digit phalanges. 3. Soft tissue ulceration of the plantar lateral aspect of the forefoot. 4. Chronic suspected ulcer versus sequelae prior surgical of the plantar medial aspect of the forefoot in the area of residual partially resected 1st metatarsal. 5. Severe midfoot charcot arthropathy. PATIENT: LAINE DACOSTA ACCT: [id number] UNIT: [id number] : 1980 LOC: ER ROOM / BED: / AGE / SEX: 43 / F ADM STATUS: REG ER SERVICE 1254 ORDERING PHYSICIAN: SANDY LEVI DO PROCEDURE(s): RANK2 - R ANKLE 2 VIEW XRAY REASON: wound ORDER NUMBER(s): [id number], ACCESSION NUMBER(s): [id number] EXAM: XY R ANKLE 2 VIEW XRAY CLINICAL INDICATION: wound TECHNIQUE: XY R ANKLE 2 VIEW XRAY Comparison: CT CT R FOOT WO CONTRAST on DOS: 11/09/22, MRI R ANKLE WO CONTRAST on DOS: 11/30/20, CT R FOOT WO CONTRAST on DOS: 11/26/20 FINDINGS/IMPRESSION: Soft tissue swelling with foci of air chronic deformity of the distal tibia and fibula with dislocation with respect to the talus. Gas-forming infection can not be excluded. Osteomyelitis not excluded. MRI recommended. Operative Report - 2 Report Details Date: 11/09/24 Preop Diagnosis: 1. Right foot osteomyelitis 2. Right foot abscess 3. Right foot cellulitis 4. Right foot charcot Postop Diagnosis: Same as preop Surgeon: Kashif Rabago MD Anesthesiologist: See anesthesia Anesthesia: Mac Implant: 5 x 5 bilayer Integra graft Consent: The patient was informed of the risks and benefits of the procedure. These include but are not limited to complications of anesthesia, postoperative infection, incomplete relief of symptoms, recurrence of symptoms, damage to blood vessels, nerves and tendons, deep venous thrombosis, pulmonary embolism and possible need for repeat surgery in the future. Complications: None Estimated Blood Loss: Minimal Fluids: See anesthesia Findings: Consistent with diagnosis Indications for Surgery: Worsening foot wound Name of Procedure Performed 1. Right ankle I&D to bone (43646) 2. Right foot I&D to bone (09818) 3. Right ankle placement of graft (05456) 4. Right foot delayed closure (58692) 5. Right foot diabetic flap (65633) 6. Right foot KRYSTAL (61925) Procedure Details Procedure Details: PRE-PROCEDURE INFORMATION: In the pre-op holding area, the extremity to be operated on was clearly marked and the patient verified correct laterality of the marking. The patient was transferred to the OR table and placed in a supine position. A timeout was performed in which identification of the correct patient, procedure, location, and materials was done. The right foot and leg were prepped and draped in normal sterile fashion. DESCRIPTION OF PROCEDURE: Attention was directed to the right lateral ankle where area of fluctuance was noted. An incision was made over this area and was deepened through blunt dissection. The incision was deepened to the level of abscess and bone. Care was taken to the dissection to avoid any neurovascular and tendinous structures. The incision was deepened to the bone, and the abscess appeared to be purulent fluid consistent with pus. The cortices of the bone was then removed with rongeur an all necrotic tissue. After the abscess was drained, the area was irrigated with 3 L normal saline using cysto tubing. A 5 x 5 Integra bilayer graft was then placed with ann. Dressed with Xeroform, 4x4s, ABD, Suresh. Attention was directed to the right forefoot where previous incision was made. An incision was made over this area and was deepened through blunt dissection. The incision was deepened to the level of abscess and bone. Care was taken to the dissection to avoid any neurovascular and tendinous structures. The incision was deepened to the bone, and the abscess appeared to be purulent fluid consistent with pus. The cortices of the bone was then removed with rongeur an all necrotic tissue. After the abscess was drained, the area was irrigated with 3 L normal saline using cysto tubing. Due to the soft tissue deficit, rotational advancement flap was designed medially to laterally and elevated preserving vascularity. A delayed closure was then performed using 2-0 nylon after was deemed appropriate with no longer concern for infection. POSTOPERATIVE INFORMATION: The patient tolerated the above noted procedure and anesthesia well and was transferred to the PACU with vital signs stable, and vascular status intact with capillary refill intact to all digits. Patient can discharged home with 6 weeks of IV antibiotics. Patient can weightbear as tolerated in a boot. Condition Good Disposition Still a Patient Visit Coding Podiatry Date of Service if different f: Nov 09, 2024 Billing Provider: KASHIF RABAGO DPM Podiatry Common Visit Codes: PROCEDURE ONLY KASHIF RABAGO DPM Nov 09, 2024 13:26 DICTATED BY:KASHIF RABAGO DPM DICTATED DATE/TIME:11/09/24 1326 ELECTRONICALLY SIGNED BY:KASHIF RABAGO DPM 11/09/24 1326 Operative Report - 2 Report Details Date: 11/05/24 Preop Diagnosis: 1. Right foot osteomyelitis 2. Right foot abscess 3. Right foot cellulitis 4. Right foot charcot Postop Diagnosis: Same as preop Surgeon: Kashif Rabago MD Anesthesiologist: None Anesthesia: Local Consent: The patient was informed of the risks and benefits of the procedure. These include but are not limited to complications of anesthesia, postoperative infection, incomplete relief of symptoms, recurrence of symptoms, damage to blood vessels, nerves and tendons, deep venous thrombosis, pulmonary embolism and possible need for repeat surgery in the future. Complications: None Estimated Blood Loss: Minimal Fluids: See anesthesia Findings: Consistent with diagnosis Indications for Surgery: Worsening right foot wound Name of Procedure Performed 1. Right ankle I&D to bone (50299) 2. Right foot I&D to bone (29942) 3. Right fibula bone biopsy () Procedure Details Procedure Details: PRE-PROCEDURE INFORMATION: In the pre-op holding area, the extremity to be operated on was clearly marked and the patient verified correct laterality of the marking. The patient was transferred to the OR table and placed in a supine position. A timeout was performed in which identification of the correct patient, procedure, location, and materials was done. The right foot and leg were prepped and draped in normal sterile fashion. DESCRIPTION OF PROCEDURE: Attention was directed to the right lateral ankle where area of fluctuance was noted. An incision was made over this area and was deepened through blunt dissection. The incision was deepened to the level of abscess and bone. Care was taken to the dissection to avoid any neurovascular and tendinous structures. The incision was deepened to the bone, and the abscess appeared to be purulent fluid consistent with pus. The cortices of the bone was then removed with rongeur an all necrotic tissue. After the abscess was drained, the area was irrigated with 3 L normal saline using cysto tubing. Deep cultures were then obtained from the wound. A bone biopsy was then taken of the right fibula which was deepened to the muscle belly and tendons. The bone was then sent to pathology to determine the extent of osteomyelitis. The area was then inspected and any areas of tracking, especially along the tendons were also drained. The wound was packed with Betadine-soaked gauze and we will need to be closed at a later date. Attention was directed to the right forefoot where area of fluctuance was noted. An incision was made over this area and was deepened through blunt dissection. The incision was deepened to the level of abscess and bone. Care was taken to the dissection to avoid any neurovascular and tendinous structures. The incision was deepened to the bone, and the abscess appeared to be purulent fluid consistent with pus. The cortices of the bone was then removed with rongeur an all necrotic tissue. After the abscess was drained, the area was irrigated with 3 L normal saline using cysto tubing. Deep cultures were then obtained from the wound. The area was then inspected and any areas of tracking, especially along the tendons were also drained. The wound was packed with Betadine-soaked gauze and we will need to be closed at a later date. POSTOPERATIVE INFORMATION: The patient tolerated the above noted procedure and anesthesia well and was transferred to the PACU with vital signs stable, and vascular status intact with capillary refill intact to all digits. Deep cultures were taken. Bone biopsy was taken and sent off. Patient will likely need 6 weeks IV antibiotics. We will consider placement of graft possible tendon Achilles lengthening to help with contracture Specimen: Right fibula Condition Good Disposition Still a Patient Visit Coding Podiatry Date of Service if different f: Nov 05, 2024 Billing Provider: KASHIF RABAGO DPM Podiatry Common Visit Codes: PROCEDURE ONLY KASHIF RABAGO DPM Nov 05, 2024 14:18 DICTATED BY:KASHIF RABAGO DPM DICTATED DATE/TIME:11/05/24 141 ELECTRONICALLY SIGNED BY:KASHIF RABAGO DPM 11/05/241417 ELECTRONICALLY CO-SIGNED BY: Condition at Discharge: Good Final Diagnosis/Problems List Diabetic foot ulcer s/p I&D and placement of graft Osteomyelitis of Right foot and lower tibia uncontrolled T2DM with hyperglycemia Hypertensive heart disease 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 ( will need referral from the PCP ) Medications: IV cefepime 1g daily for 6 weeks ( Home health services will arrange the ABx) Insulin Lantus 25U daily at night Insulin Lispro 8U before meals ( if missed the meal do not take the insulin lispro ) atorvastatin 40mg daily at night amlodipine 10mg daily for high blood pressure Scheduled Acetaminophen (Tylenol Extra Strength), 500 MG PO QIDPRN Amlodipine Besylate (Amlodipine Besylate), 1 TAB PO DAILY Amlodipine Besylate (Amlodipine Besylate), 1 TAB PO DAILY Cholecalciferol (Vitamin D3 Super Strength), 2,000 UNIT PO DAILY Famotidine (Pepcid Tablet), 1 TAB PO BID Ferrous Sulfate (Ferrous Sulfate), 325 MG PO DAILY, (Reported) Hydralazine Hcl (Hydralazine Hcl), 25 MG PO TID, (Reported) Nystatin (Mycostatin), 1 APPLIC TOP BID Sodium Hypochlorite (Dakins Solution Quarter S), 0.125 % EX BID Scheduled PRN Hydrocodone-Acetaminophen (Hydrocodone Bitartrate/AC 5-325 mg), 1 TAB PO Q6HP PRN Ondansetron Odt 4MG Tab (Zofran Po), 4 MG PO Q6HP PRN Durable Medical Equipment Blood Glucose Monitoring Suppl (D-Care Glucometer Kit/Glu W/Device), KIT XX, (DME) Discharge Statement: "Patient was advised to return to the ER or call 911 if any headaches, dizziness, shortness of breath, chest pain, abdominal pain, bleeding, fevers, or worsening of medical condition. Patient was counseled about treatment plan, medications, possible side effects, patientverbalized understanding. All questions were answered to the best of my ability. 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
== END 2024-11-10 18:50 | disposition home health service (06) | DRG 710 ==
LOC: ER 11:58 → OVERFLOW 14:58 → EAST 16:51
PROVIDERS: ADMIT Internal Medicine Geriatric Medicine; ATTEND Internal Medicine Geriatric Medicine
PROC: 0QBJ0ZX Excision of Right Fibula, Open Approach, Diagnostic (ICD-10-PCS; 2024-11-05)
PROC: 0Y9K0ZZ Drainage of Right Ankle Region, Open Approach (ICD-10-PCS; 2024-11-05)
PROC: 0Y9M0ZZ Drainage of Right Foot, Open Approach (ICD-10-PCS; principal; 2024-11-05 13:55)
PROC: 02HV33Z Insertion of Infusion Device into Superior Vena Cava, Percutaneous Approach (ICD-10-PCS; 2024-11-08)
PROC: B548ZZA Ultrasonography of Superior Vena Cava, Guidance (ICD-10-PCS; 2024-11-08)
PROC: 0HRMXK3 Replacement of Right Foot Skin with Nonautologous Tissue Substitute, Full Thickness, External Approach (ICD-10-PCS; 2024-11-09)
PROC: 0Y9M0ZZ Drainage of Right Foot, Open Approach (ICD-10-PCS; 2024-11-09)
PROC: 0Y9K0ZZ Drainage of Right Ankle Region, Open Approach (ICD-10-PCS; 2024-11-09)
DX: A41.9 Sepsis, unspecified organism (principal); N17.0 Acute kidney failure with tubular necrosis; E87.20 Acidosis, unspecified; N18.4 Chronic kidney disease, stage 4 (severe); L03.115 Cellulitis of right lower limb; D64.9 Anemia, unspecified; E11.22 Type 2 diabetes mellitus with diabetic chronic kidney disease; E11.69 Type 2 diabetes mellitus with other specified complication; M86.8X7 Other osteomyelitis, ankle and foot; K21.9 Gastro-esophageal reflux disease without esophagitis; N39.0 Urinary tract infection, site not specified; I12.9 Hypertensive chronic kidney disease with stage 1 through stage 4 chronic kidney disease, or unspecified chronic kidney disease; E78.5 Hyperlipidemia, unspecified; L02.611 Cutaneous abscess of right foot; Z79.899 Other long term (current) drug therapy
CPT/HCPCS: 36415; 36569; 73600; 73718; 76775; 76937; 80048; 80053; 80202; 80307; 81001; 82010; 82550; 82570; 82607; 82728; 82962; 83036; 83540; 83550; 83605; 83735; 83930; 83935; 84100; 84156; 84300; 84550; 84702; 85014; 85018; 85025; 85045; 85610; 85652; 85730; 86141; 87040; 87070; 87075; 87077; 87081; 87186; 87205; 96365; 96367; 96375; G0378; J1100; J1815; J1885; J2003; J2250; J2405; J2704; J3490; J7060